=== PATIENT | male | born 1930 | race Two or more races ===

== ENCOUNTER 2016-08-25 15:45 | Emergency (ER) | payer MEDICARE, BC ==
--- NOTE | 2016-08-25 16:09 | ER Document Report ---
ED Medical Screen (RME) - General Stated Complaint: BACK PAIN Time seen by provider: 16:03 Mode of Arrival: Ambulatory Information source: Patient Notes: 86-year-old Ukrainian-speaking male that walks with a cane is complaining of low back pain for 3 days ago worse today while he was sitting in a car looking in a house. He points to his right sacral iliac area which hurts more than the left. He has a history of diabetes, dementia, TIAs, hypertension, renal insufficiency, strokes. Son has been translating for him in triage. TRAVEL OUTSIDE OF THE [place] IN LAST 30 DAYS: No Past Medical History - Past Medical History Cardiac Medical History: Reports: Hx Hypertension Endocrine Medical History: Reports: Hx Diabetes Mellitus Type 2 - Immunizations Hx Diphtheria, Pertussis, Tetanus Vaccination: Yes Physical Exam - Vital signs Vitals: Temp Pulse Resp BP Pulse Ox 98.0 F 56 L 20 119/55 L 96 08/25/16 15:54 08/25/16 15:54 08/25/16 15:54 08/25/16 15:54 08/25/16 15:54 Course - Vital Signs Vital signs: Temp Pulse Resp BP Pulse Ox 98.0 F 56 L 20 119/55 L 96 08/25/16 15:54 08/25/16 15:54 08/25/16 15:54 08/25/16 15:54 08/25/16 15:54
[2016-08-25 16:47] LABS: APPEARANCE,URINE SLIGHTLY-CLOUDY; BILIRUBIN,URINE NEGATIVE (NEGATIVE); GLUCOSE, URINE NEGATIVE (NEGATIVE); KETONES,URINE NEGATIVE (NEGATIVE); LEUKOCYTE ESTERASE,URINE NEGATIVE (NEGATIVE); NITRITE,URINE NEGATIVE (NEGATIVE); PROTEIN,URINE NEGATIVE (NEGATIVE); URINE SPECIFIC GRAVITY 1.015; UROBILINOGEN,URINE NEGATIVE mg/dL (<2.0)
[2016-08-25 16:51] LABS: ABSOLUTE EOSINOPHILS # (AUTO) 0.2 10^3/uL (0.0-0.6); ABSOLUTE LYMPHOCYTES (AUTO) 1.2 10^3/uL (0.5-4.7); ABSOLUTE MONOCYTES (AUTO) 0.8 10^3/uL (0.1-1.4); ABSOLUTE NEUT (AUTO) 5.2 10^3/uL (1.7-8.2); BASOPHILS % (AUTO) 0.5 % (0-2); EOSINOPHILS % (AUTO) 2.3 % (0-6); HEMATOCRIT 40.8 % (37.9-51.0); HEMOGLOBIN 13.9 g/dL (13.5-17.0); HGB HCT DIFFERENCE 0.9; LYMPHOCYTES % (AUTO) 16.8 % (13-45); MEAN CORPUSCULAR HEMOGLOBIN 30.1 pg (27.0-33.4); MEAN CORPUSCULAR HGB CONC 34.1 g/dL (32.0-36.0); MEAN CORPUSCULAR VOLUME 88 fl (80-97); MONOCYTES % (AUTO) 10.6 % (3-13); RED BLOOD COUNT 4.62 10^6/uL (4.35-5.55); RED CELL DISTRIBUTION WIDTH 14.1 % (11.5-14.0); SEGMENTED NEUTROPHILS % (AUTO) 69.8 % (42-78); WHITE BLOOD COUNT 7.4 10^3/uL (4.0-10.5)
[2016-08-25 17:04] LABS: ALANINE AMINOTRANSFERASE 37 U/L (21-72); ALKALINE PHOSPHATASE 134 U/L (38-126); ANION GAP 10 (5-19); ASPARTATE AMINO TRANSFERASE 36 U/L (17-59); BILIRUBIN,TOTAL 0.7 mg/dL (0.2-1.3); BLOOD UREA NITROGEN 33 mg/dL (7-20); CALCIUM 9.2 mg/dL (8.4-10.2); CARBON DIOXIDE 25 mmol/L (22-30); CHLORIDE 101 mmol/L (98-107); CREATININE RESULT 1.28 mg/dL (0.52-1.25); GLUCOSE 155 mg/dL (75-110); POTASSIUM 4.9 mmol/L (3.6-5.0); SODIUM 135.5 mmol/L (137-145); TOTAL PROTEIN 6.4 g/dL (6.3-8.2)
[2016-08-25] MEDS ORDERED: LIDOCAINE 5% (700 MG) TRANSDERMAL ADH..PATCH TP ONE (19:31)
--- NOTE | 2016-08-25 19:33 | ER Document Report ---
ED General - General Chief Complaint: Back Pain Stated Complaint: BACK PAIN Mode of Arrival: Ambulatory Notes: Patient is an 86-year-old male with past medical history of lumbar laminectomy who presents with bilateral low back pain that started several hours prior to arrival. It is a dull, aching, severe pain. Nothing improves or worsens the pain initially. He has a history of similar symptoms in the past and if it was worse today due to him trying to get out of a car. At time of my assessment, patient denies any pain and states that it completely resolved after lying flat for a period of time. He denies any urinary retention or incontinence. No weakness or numbness. He continues to be able to ambulate without difficulty. No direct trauma to the area. He has not seen his primary doctor regarding today's concerns. TRAVEL OUTSIDE OF THE [place] IN LAST 30 DAYS: No - Related Data Allergies/Adverse Reactions: alprazolam [From Xanax] Allergy (Verified 08/25/16 16:06) brinzolamide [From Azopt] Allergy (Verified 08/25/16 16:06) levofloxacin [From Levaquin] Allergy (Verified 08/25/16 16:06) Sulfa (Sulfonamide Antibiotics) Allergy (Verified 08/25/16 16:06) grapes Allergy (Uncoded 08/25/16 16:06) peaches Allergy (Uncoded 08/25/16 16:06) Past Medical History - General Information source: Patient - Social History Smoking Status: Never Smoker Chew tobacco use (# tins/day): No Frequency of alcohol use: None Drug Abuse: None Lives with: Spouse/Significant other Family History: Reviewed & Not Pertinent Patient has suicidal ideation: No Patient has homicidal ideation: No - Past Medical History Cardiac Medical History: Reports: Hx Hypertension Endocrine Medical History: Reports: Hx Diabetes Mellitus Type 2 Renal/ Medical History: Denies: Hx Peritoneal Dialysis - Immunizations Hx Diphtheria, Pertussis, Tetanus Vaccination: Yes Review of Systems - Review of Systems Notes: Constitutional: Negative for fever. HENT: Negative for sore throat. Eyes: Negative for visual changes. Cardiovascular: Negative for chest pain. Respiratory: Negative for shortness of breath. Gastrointestinal: Negative for abdominal pain, vomiting or diarrhea. Genitourinary: Negative for dysuria. Musculoskeletal: Positive for back pain. Skin: Negative for rash. Neurological: Negative for headaches, weakness or numbness. 10 point ROS negative except as marked above and in HPI. Physical Exam - Vital signs Vitals: Temp Pulse Resp BP Pulse Ox 98.0 F 56 L 20 119/55 L 96 08/25/16 15:54 08/25/16 15:54 08/25/16 15:54 08/25/16 15:54 08/25/16 15:54 Interpretation: Normal Notes: PHYSICAL EXAMINATION: GENERAL: Well-appearing, well-nourished and in no acute distress. HEAD: Atraumatic, normocephalic. EYES: Pupils equal round and reactive to light, extraocular movements intact, sclera anicteric, conjunctiva are normal. ENT: nares patent, oropharynx clear without exudates. Moist mucous membranes. NECK: Normal range of motion, supple without lymphadenopathy LUNGS: Breath sounds clear to auscultation bilaterally and equal. No wheezes rales or rhonchi. HEART: Regular rate and rhythm without murmurs ABDOMEN: Soft, nontender, normoactive bowel sounds. No guarding, no rebound. No masses appreciated. EXTREMITIES: Normal range of motion, no pitting or edema. No cyanosis. Back: No midline spinal tenderness, step-offs or deformities. NEUROLOGICAL: 5 out of 5 strength both distally and proximally bilateral lower extremities. 2+ patellar reflexes bilaterally. No clonus. Sensation grossly intact in the bilateral lower extremities. Patient is able to ambulate without difficulty. PSYCH: Normal mood, normal affect. SKIN: Warm, Dry, normal turgor, no rashes or lesions noted. Course - Re-evaluation Re-evalutation: 08/25/16 19:31 Presentation of a well appearing patient complaining of acute on chronic back pain. No rapid progression of symptoms, systemic symptoms including fevers, chills, weight loss, history of recent bacterial infection, bilateral symptoms, numbness, weakness, difficulty walking, urinary retention or bowel incontinence , personal history of cancer, immunosuppression, diabetes, known AAA, or history of IV drug use. Exam is without point tenderness over vertebral bodies , pulsatile abdominal mass, and patient has symmetric and intact lower extremity strength, sensation, and reflexes without clonus. 2+ symmetric medial malleolar and dorsalis pedis pulses Based on history and physical, I have a very low suspicion of a concerning etiology of pain including epidural compression syndrome, spinal infection, transverse myelitis, malignancy, abdominal aortic aneurysm, renal colic, acute lower extremity claudication, neurogenic claudication, ankylosing spondylitis, or other intra-abdominal process. L-spine films obtained in triage show chronic degenerative changes but no acute findings.At this time will discharge with return precautions and follow-up recommendations. Verbal discharge instructions given a the bedside and opportunity for questions given. Medication warnings reviewed. Patient is in agreement with this plan and has verbalized understanding of return precautions and the need for primary care follow-up in the next 24-72 hours. - Vital Signs Vital signs: Temp Pulse Resp BP Pulse Ox 98.1 F 68 18 118/52 L 98 08/25/16 19:43 08/25/16 19:43 08/25/16 19:43 08/25/16 19:43 08/25/16 19:43 - Laboratory Result Diagrams: 08/25/16 16:18 08/25/16 16:18 Laboratory results interpreted by me: 08/25/16 08/25/16 08/25/16 16:18 16:18 17:37 RDW 14.1 H Sodium 135.5 L BUN 33 H Creatinine 1.28 H Est GFR (Non-Af Amer) 53 L Glucose 155 H POC Glucose 120 H Alkaline Phosphatase 134 H - Diagnostic Test Radiology reviewed: Reports reviewed Discharge - Discharge Clinical Impression: Back pain Qualifiers: Back pain location: low back pain Chronicity: chronic Back pain laterality: right Sciatica presence: without sciatica Qualified Code(s): M54.5 - Low back pain Condition: Good Disposition: HOME, SELF-CARE Additional Instructions: You have been seen in the Emergency Department (ED) today for back pain. Your workup and exam have not shown any acute abnormalities and you are likely suffering from muscle strain or possible problems with your discs, but there is no treatment that will fix your symptoms at this time. You can take Tylenol 1000 mg every 6 hours as needed for pain. You should also purchase a local lidocaine cream such as "aspercreme with lidocaine" and use per bottle instructions to the affected area. Apply heat to the area as often as you are able. Continue to keep active and avoid prolonged periods of bed rest. Please follow up with your doctor as soon as possible regarding today's ED visit and your back pain. Return to the ED for worsening back pain, fever, weakness or numbness of either leg, or if you develop either (1) an inability to urinate or have bowel movements, or (2) loss of your ability to control your bathroom functions (if you start having "accidents"), or if you develop other new symptoms that concern you.concern you. Referrals: VIRI HERNANDEZ MD [Primary Care Provider] - Follow up as needed GABI RAE MD [ACTIVE STAFF] - Follow up as needed
[2016-08-25 19:46] VITALS: BP 118/52
== END 2016-08-25 19:46 | disposition home or self-care (01) ==
LOC: ER 15:45
DX: M47.9 Spondylosis, unspecified (principal); M54.5 Low back pain; G89.29 Other chronic pain; I10 Essential (primary) hypertension; E11.9 Type 2 diabetes mellitus without complications; Z79.899 Other long term (current) drug therapy; Z88.8 Allergy status to other drugs, medicaments and biological substances; Z88.1 Allergy status to other antibiotic agents; Z88.2 Allergy status to sulfonamides; Z91.018 Allergy to other foods
CPT/HCPCS: 36415; 72110; 80053; 81001; 82962; 85025; 99283

== ENCOUNTER 2016-10-07 17:32 | Observation (INO) | payer MEDICARE, BC ==
--- NOTE | 2016-10-07 18:00 | ER Document Report ---
ED Dizziness/Weakness - General Mode of Arrival: Medic Information source: Patient, Relative - son, Emergency Med Personnel TRAVEL OUTSIDE OF THE [place] IN LAST 30 DAYS: No - HPI Patient complains to provider of: Weakness Associated symptoms: Other - See above <ARELI HALL - Last Filed: 10/07/16 19:30> <CHASIDYERINNCHRIS - Last Filed: 10/07/16 21:15> - General Chief Complaint: General Weakness Stated Complaint: WEAKNESS Notes: Patient is an 86 year old male, with a past medical history including diabetes and CVAs, who presents to the emergency department via EMS for weakness. Patient is Malay speaking, son at bedside to translate. Per son patient had gone to the bathroom multiple times this morning and his mother noticed that one of the bowel movements was soft. Son reported patient appeared drooped, weak , was only minimally responsive, and reported he felt sleepy, son states patient's blood pressure was 68/48 and his blood sugar was at 230. When EMS arrived they recorded patient's blood pressure as 85/44 with a pulse of 43, en route patient was given a bolus of saline of unknown amount and his blood pressure improved to 130/63. Per son patient is on Plavix for past CVAs and TIAs. Son reports patient has history of partial bowel obstructions, but none in the last 2 years. Patient had a formed bowel movement on arrival to exam room. PCP: Dr. Carmona (ARELI HALL) - Related Data Allergies/Adverse Reactions: alprazolam [From Xanax] Allergy (Verified 08/25/16 16:06) brinzolamide [From Azopt] Allergy (Verified 08/25/16 16:06) levofloxacin [From Levaquin] Allergy (Verified 08/25/16 16:06) Sulfa (Sulfonamide Antibiotics) Allergy (Verified 08/25/16 16:06) grapes Allergy (Uncoded 08/25/16 16:06) peaches Allergy (Uncoded 08/25/16 16:06) Past Medical History - General Information source: Patient, Relative - Social History Smoking Status: Unknown if Ever Smoked Family History: Reviewed & Not Pertinent - Past Medical History Cardiac Medical History: Reports: Hx Hypertension EENT Medical History: Reports: Eyes - glaucoma Neurological Medical History: Reports: Hx Cerebrovascular Accident, Other - Hx TIAs Endocrine Medical History: Reports: Hx Diabetes Mellitus Type 2 - oral GI Medical History: Reports: Hx Gastroesophageal Reflux Disease, Other - Hx partial bowel obstructions, last 2 years ago Psychiatric Medical History: Reports: Hx Dementia - Immunizations Hx Diphtheria, Pertussis, Tetanus Vaccination: Yes <ARELI HALL - Last Filed: 10/07/16 19:30> Review of Systems - Review of Systems Constitutional: See HPI, Weakness EENT: No symptoms reported Cardiovascular: No symptoms reported Respiratory: No symptoms reported Gastrointestinal: See HPI, Diarrhea Genitourinary: No symptoms reported Male Genitourinary: No symptoms reported Musculoskeletal: No symptoms reported Skin: No symptoms reported Hematologic/Lymphatic: No symptoms reported Neurological/Psychological: No symptoms reported -: Yes All other systems reviewed and negative <ARELI HALL - Last Filed: 10/07/16 19:30> Physical Exam - Vital signs Interpretation: Normal - General General appearance: Appears well, Alert - HEENT Head: Normocephalic, Atraumatic Mucous membranes: Dry - Respiratory Respiratory status: No respiratory distress Chest status: Nontender Breath sounds: Normal Chest palpation: Normal - Cardiovascular Rhythm: Regular Heart sounds: Normal auscultation Murmur: No Pulses: Normal: Radial - Abdominal Inspection: Normal Distension: No distension Bowel sounds: Normal Tenderness: Nontender Organomegaly: No organomegaly - Extremities General upper extremity: Normal inspection General lower extremity: Normal inspection. No: Edema - Neurological Neuro grossly intact: Yes Cognition: Normal Orientation: AAOx4 Speech: Normal - Psychological Associated symptoms: Normal affect, Normal mood - Skin Skin Temperature: Warm Skin Moisture: Dry Skin Color: Normal <ARELI HALL - Last Filed: 10/07/16 19:30> <CHRIS UMAÑA - Last Filed: 10/07/16 21:15> - Vital signs Vitals: Temp Pulse Resp BP Pulse Ox 97.2 F 54 L 20 124/51 L 100 10/07/16 17:54 10/07/16 17:54 10/07/16 17:54 10/07/16 17:54 10/07/16 17:54 - Abdominal Notes: Bowel movement upon arrival (ARELI HALL) Course - Laboratory Result Diagrams: 10/07/16 18:11 10/07/16 18:11 <ARELI HALL - Last Filed: 10/07/16 19:30> - Laboratory Result Diagrams: 10/07/16 18:11 10/07/16 18:11 - Diagnostic Test Radiology reviewed: Image reviewed, Reports reviewed - Chest x-ray does not show an acute process. - EKG Interpretation by Me EKG shows normal: Sinus rhythm, [place], Intervals, QRS Complexes, ST-T Waves Rate: Normal - 61 Rhythm: NSR - Consults Dr. Ellsworth Time consulted: 21:15 Consulted provider: will see as inpatient <CHRIS UMAÑA - Last Filed: 10/07/16 21:15> - Vital Signs Vital signs: Temp Pulse Resp BP Pulse Ox 97.2 F 54 L 10 L 129/53 H 99 10/07/16 17:54 10/07/16 17:54 10/07/16 18:32 10/07/16 18:32 10/07/16 18:32 - Laboratory Laboratory results interpreted by me: 10/07/16 10/07/16 18:11 20:53 Sodium 133.3 L Potassium 6.0 H* BUN 49 H Creatinine 1.82 H Est GFR ( Amer) 43 L Est GFR (Non-Af Amer) 36 L Glucose 195 H Total Protein 6.2 L Urine Glucose (UA) 50 H Critical Care Note - Critical Care Note Total time excluding time spent on procedures (mins): 35 <CHRIS UMAÑA - Last Filed: 10/07/16 21:15> Discharge <ARELI HALL - Last Filed: 10/07/16 19:30> - Discharge Admitting Provider: Mathew - Dr. Ellsworth covering. Unit Admitted: Telemetry <CHRIS UMAÑA - Last Filed: 10/07/16 21:15> - Discharge Clinical Impression: Clostridium difficile diarrhea, Hyperkalemia, Dehydration, Bradycardia Hypotension Qualifiers: Hypotension type: other hypotension type Qualified Code(s): I95.89 - Other hypotension Condition: Good Disposition: ADMITTED INPATIENT Referrals: VIRI CARMONA MD [Primary Care Provider] - Follow up as needed Scribe Attestation: 10/07/16 21:15 I personally performed the services described in the documentation, reviewed and edited the documentation which was dictated to the scribe in my presence, and it accurately records my words and actions. (CHASIDY,CHRIS) Scribe Documentation - Scribe Written by Linette:: linette Childers, 10/07/16, 1835 acting as scribe for :: Chasidy <ARELI HALL - Last Filed: 10/07/16 19:30>
[2016-10-07] MEDS ORDERED: NORMAL SALINE 1000 ML 1,000 ML IV ONE (18:11)
[2016-10-07 18:34] LABS: ABSOLUTE EOSINOPHILS # (AUTO) 0.1 10^3/uL (0.0-0.6); ABSOLUTE MONOCYTES (AUTO) 0.7 10^3/uL (0.1-1.4); ABSOLUTE NEUT (AUTO) 5.5 10^3/uL (1.7-8.2); BASOPHILS % (AUTO) 0.5 % (0-2); EOSINOPHILS % (AUTO) 1.6 % (0-6); HEMATOCRIT 39.9 % (37.9-51.0); HEMOGLOBIN 13.7 g/dL (13.5-17.0); HGB HCT DIFFERENCE 1.2; LYMPHOCYTES % (AUTO) 13.1 % (13-45); MEAN CORPUSCULAR HEMOGLOBIN 30.5 pg (27.0-33.4); MEAN CORPUSCULAR HGB CONC 34.4 g/dL (32.0-36.0); MEAN CORPUSCULAR VOLUME 89 fl (80-97); MONOCYTES % (AUTO) 9.1 % (3-13); RED CELL DISTRIBUTION WIDTH 13.9 % (11.5-14.0); SEGMENTED NEUTROPHILS % (AUTO) 75.7 % (42-78); WHITE BLOOD COUNT 7.3 10^3/uL (4.0-10.5)
[2016-10-07 18:40] LABS: VENOUS BLOOD BASE EXCESS -2.2 mmol/L; VENOUS BLOOD HCO3 24.2 mmol/L (20-32); VENOUS BLOOD PCO2 47.8 mmHg (35-63); VENOUS BLOOD PH 7.32 (7.30-7.42)
[2016-10-07 18:57] LABS: PROTHROMBIN TIME 13.5 SEC (11.4-15.4)
[2016-10-07 19:00] LABS: ALANINE AMINOTRANSFERASE 33 U/L (21-72); ALBUMIN 3.7 g/dL (3.5-5.0); ALKALINE PHOSPHATASE 103 U/L (38-126); ANION GAP 9 (5-19); ASPARTATE AMINO TRANSFERASE 40 U/L (17-59); BILIRUBIN,TOTAL 0.8 mg/dL (0.2-1.3); BLOOD UREA NITROGEN 49 mg/dL (7-20); CARBON DIOXIDE 24 mmol/L (22-30); CHLORIDE 100 mmol/L (98-107); CREATININE RESULT 1.82 mg/dL (0.52-1.25); GLUCOSE 195 mg/dL (75-110); SODIUM 133.3 mmol/L (137-145); TOTAL PROTEIN 6.2 g/dL (6.3-8.2)
[2016-10-07] MEDS ORDERED: CALCIUM GLUCONATE 1000 MG/10 ML INJ IV ONE (19:06)
[2016-10-07] MEDS ORDERED: SODIUM BICARBONATE 8.4% INJ 50 MEQ/50 ML DISP.SYRIN IV ONE (19:06)
[2016-10-07] MEDS ORDERED: METRONIDAZOLE 500 MG TABLET PO ONE (19:55)
--- NOTE | 2016-10-07 20:07 | EKG REPORT ---
SEVERITY:- NORMAL ECG - SINUS RHYTHM : Confirmed by: Nikos Monahan 07-Oct-2016 20:06:21
[2016-10-07 21:09] LABS: APPEARANCE,URINE CLEAR; BILIRUBIN,URINE NEGATIVE (NEGATIVE); GLUCOSE, URINE 50 mg/dL (NEGATIVE); KETONES,URINE NEGATIVE (NEGATIVE); LEUKOCYTE ESTERASE,URINE NEGATIVE (NEGATIVE); NITRITE,URINE NEGATIVE (NEGATIVE); PROTEIN,URINE NEGATIVE (NEGATIVE); URINE SPECIFIC GRAVITY 1.008; UROBILINOGEN,URINE NEGATIVE mg/dL (<2.0)
[2016-10-08] MEDS ORDERED: NORMAL SALINE 1000 ML 1,000 ML IV PRN ×2 (02:13→17:45)
[2016-10-08] MEDS ORDERED: DEXTROSE 50%-WATER SYRINGE 12.5 GM/25 ML DOSE IV PRN (02:16)
[2016-10-08] MEDS ORDERED: DEXTROSE 40% GEL 15 GM TUBE X 2 PO PRN (02:16)
[2016-10-08] MEDS ORDERED: DEXTROSE 50%-WATER SYRINGE 25 GM/50 ML DOSE IV PRN (02:16)
[2016-10-08] MEDS ORDERED: INSULIN REG, HUMAN 100 UNIT/ML 3 ML VIAL (PYX) SUBCUT PRN (02:16)
[2016-10-08] MEDS ORDERED: DEXTROSE 40% GEL 15 GM TUBE PO PRN (02:16)
[2016-10-08] MEDS ORDERED: GLUCAGON,HUMAN RECOMB 1 MG INJ IM PRN (02:16)
[2016-10-08] MEDS: METRONIDAZOLE 500 MG TABLET PO SCH ×2 (05:48→14:16)
[2016-10-08 07:59] LABS: ABSOLUTE EOSINOPHILS # (AUTO) 0.2 10^3/uL (0.0-0.6); ABSOLUTE LYMPHOCYTES (AUTO) 1.8 10^3/uL (0.5-4.7); ABSOLUTE NEUT (AUTO) 6.3 10^3/uL (1.7-8.2); BASOPHILS % (AUTO) 0.5 % (0-2); EOSINOPHILS % (AUTO) 1.7 % (0-6); HEMATOCRIT 39.2 % (37.9-51.0); HEMOGLOBIN 13.2 g/dL (13.5-17.0); HGB HCT DIFFERENCE 0.4; MEAN CORPUSCULAR HEMOGLOBIN 29.9 pg (27.0-33.4); MEAN CORPUSCULAR HGB CONC 33.8 g/dL (32.0-36.0); MEAN CORPUSCULAR VOLUME 89 fl (80-97); MONOCYTES % (AUTO) 10.9 % (3-13); RED BLOOD COUNT 4.43 10^6/uL (4.35-5.55); RED CELL DISTRIBUTION WIDTH 14.1 % (11.5-14.0); SEGMENTED NEUTROPHILS % (AUTO) 67.9 % (42-78); WHITE BLOOD COUNT 9.2 10^3/uL (4.0-10.5)
[2016-10-08] MEDS ORDERED: DOXAZOSIN MESYLATE 1 MG TABLET PO PRN (10:11)
[2016-10-08 10:13] LABS: ANION GAP 8 (5-19); CALCIUM 9.1 mg/dL (8.4-10.2); CARBON DIOXIDE 26 mmol/L (22-30); CHLORIDE 105 mmol/L (98-107); CREATININE RESULT 0.97 mg/dL (0.52-1.25); GLUCOSE 150 mg/dL (75-110); SODIUM 138.9 mmol/L (137-145)
[2016-10-08 10:31] LABS: BLOOD UREA NITROGEN 28 mg/dL (7-20); POTASSIUM 3.9 mmol/L (3.6-5.0)
--- NOTE | 2016-10-08 12:59 | PDOC H&P ---
History of Present Illness Admission Date/PCP: 10/08/16 00:35 VIRI HERNANDEZ MD Patient complains of: low bp/ History of Present Illness: MAGUI CABALLERO is a 86 year old male pt brought by em[facility] [place] son noticed bp was lower end and in er all blood presure was stable but pt pot was 6 and pt c diff was positive son denied any h/o loose stool pt denied any abd pain no chest pain no sob no fever As per review from the ER physicians not the patient was in the multiple times in the bathroom I believe it could be a possible underlying loose stool and it could be underlying from the C. difficile but the patient's son insist patient does not have any other symptoms Past Medical History Cardiac Medical History: Reports: Hypertension EENT Medical History: Reports: Eyes - glaucoma Neurological Medical History: Reports: Other - Hx TIAs Endocrine Medical History: Reports: Diabetes Mellitus Type 2 - oral Renal/ Medical History: Reports: Chronic Kidney Disease GI Medical History: Reports: Gastroesophageal Reflux Disease, Other - Hx partial bowel obstructions, last 2 years ago Psychiatric Medical History: Reports: Dementia Social History Smoking Status: Never Smoker Frequency of Alcohol Use: None Hx Recreational Drug Use: No Hx Prescription Drug Abuse: No Family History Family History: Reviewed & Not Pertinent Parental Family History Reviewed: Yes Children Family History Reviewed: Yes Sibling(s) Family History Reviewed.: Yes Medication/Allergy Home Medications: Amlodipine Besylate [Norvasc 10 mg Tablet] 5 mg PO BIDLS 10/08/16 Amlodipine Besylate [Norvasc 5 mg Tablet] 5 mg PO ASDIR PRN 10/08/16 Brimonidine Tartrate [Alphagan 0.2% Oph Soln 5 ml] 1 drop OU BID 10/08/16 Clopidogrel Bisulfate [Plavix 75 mg Tablet] 75 mg PO QHS 10/08/16 Doxazosin Mesylate [Cardura 1 Mg Tablet] 1 mg PO HSP PRN 10/08/16 Famotidine 20 mg PO BIDBS 10/08/16 Glipizide [Glipizide Xl] 2.5 mg PO BIDBS 10/08/16 Latanoprost [Xalatan 0.005% Oph Soln 2.5 ml] 1 drop OU QHS 10/08/16 Losartan Potassium [Cozaar 50 mg Tablet] 25 mg PO BIDLS 10/08/16 Timolol Maleate [Timoptic 0.5% Oph Soln 5 ml] 1 drop OU BID 10/08/16 Allergies/Adverse Reactions: alprazolam [From Xanax] Allergy (Verified 08/25/16 16:06) brinzolamide [From Azopt] Allergy (Verified 08/25/16 16:06) levofloxacin [From Levaquin] Allergy (Verified 08/25/16 16:06) Sulfa (Sulfonamide Antibiotics) Allergy (Verified 08/25/16 16:06) grapes Allergy (Uncoded 08/25/16 16:06) peaches Allergy (Uncoded 08/25/16 16:06) Review of Systems Constitutional: ABSENT: chills, fever(s), headache(s), weight gain, weight loss Eyes: ABSENT: visual disturbances Ears: ABSENT: hearing changes Cardiovascular: ABSENT: chest pain, dyspnea on exertion, edema, orthropnea, palpitations Respiratory: ABSENT: cough, hemoptysis Gastrointestinal: ABSENT: abdominal pain, constipation, diarrhea, hematemesis, hematochezia, nausea, vomiting Genitourinary: ABSENT: dysuria, hematuria Musculoskeletal: ABSENT: joint swelling Integumentary: ABSENT: rash, wounds Neurological: ABSENT: abnormal gait, abnormal speech, confusion, dizziness, focal weakness, syncope Psychiatric: ABSENT: anxiety, depression, homidical ideation, suicidal ideation Endocrine: ABSENT: cold intolerance, heat intolerance, menstrual abnormalities, polydipsia, polyuria Hematologic/Lymphatic: ABSENT: easy bleeding, easy bruising, lymphadenopathy Physical Exam Vital Signs: Temp Pulse Resp BP Pulse Ox 97.9 F 59 L 16 142/50 H 100 10/08/16 09:02 10/08/16 09:02 10/08/16 09:02 10/08/16 09:02 10/08/16 09:02 Intake & Output 10/07/16 10/08/16 10/09/16 06:59 06:59 06:59 Output Total 1800 Balance -1800 Weight 54.431 kg 55.6 kg General appearance: PRESENT: no acute distress, well-developed, well-nourished Head exam: PRESENT: atraumatic, normocephalic Eye exam: PRESENT: conjunctiva pink, EOMI, PERRLA. ABSENT: scleral icterus Ear exam: PRESENT: normal external ear exam Mouth exam: PRESENT: moist, tongue midline Neck exam: PRESENT: full ROM. ABSENT: carotid bruit, JVD, lymphadenopathy, thyromegaly Cardiovascular exam: PRESENT: RRR. ABSENT: diastolic murmur, rubs, systolic murmur Pulses: PRESENT: normal dorsalis pedis pul, +2 pedal pulses bilateral Vascular exam: PRESENT: normal capillary refill GI/Abdominal exam: PRESENT: normal bowel sounds, soft. ABSENT: distended, guarding, mass, organolmegaly, rebound, tenderness Rectal exam: PRESENT: deferred Neurological exam: PRESENT: alert, awake, oriented to person. ABSENT: motor sensory deficit Psychiatric exam: PRESENT: appropriate affect, normal mood. ABSENT: homicidal ideation, suicidal ideation Skin exam: PRESENT: dry, intact, warm. ABSENT: cyanosis, rash Results Laboratory Results: 10/08/16 07:51 10/08/16 10/08/16 06:30 07:51 WBC Cancelled 9.2 RBC Cancelled 4.43 Hgb Cancelled 13.2 L Hct Cancelled 39.2 MCV Cancelled 89 MCH Cancelled 29.9 MCHC Cancelled 33.8 RDW Cancelled 14.1 H Plt Count Cancelled 223 Seg Neutrophils % Cancelled 67.9 Lymphocytes % Cancelled 19.0 Monocytes % Cancelled 10.9 Eosinophils % Cancelled 1.7 Basophils % Cancelled 0.5 Absolute Neutrophils Cancelled 6.3 Absolute Lymphocytes Cancelled 1.8 Absolute Monocytes Cancelled 1.0 Absolute Eosinophils Cancelled 0.2 Absolute Basophils Cancelled 0.0 Impressions: Chest X-Ray 10/07/16 17:45 IMPRESSION: NO ACUTE RADIOGRAPHIC FINDING IN THE CHEST. Assessment & Plan - Diagnosis (1) Clostridium difficile diarrhea Is this a current diagnosis for this admission?: YesPlan: last antibitec in jun pt denied any sx d/w son start po metronidazole (2) Acute renal failure (ARF) Qualifiers: Acute renal failure type: unspecified Qualified Code(s): N17.9 - Acute kidney failure, unspecified Is this a current diagnosis for this admission?: YesPlan: iv fluid repat blood work hold cuong (3) Chronic kidney disease Qualifiers: Chronic kidney disease stage: stage 2 (mild) Qualified Code(s): N18.2 - Chronic kidney disease, stage 2 (mild) Is this a current diagnosis for this admission?: YesPlan: iv fluid (4) Dehydration Is this a current diagnosis for this admission?: YesPlan: iv fluid (5) Hyperkalemia Is this a current diagnosis for this admission?: YesPlan: from ckd d/c lorsatan low k diet (6) Hypotension Qualifiers: Hypotension type: other hypotension type Qualified Code(s): I95.89 - Other hypotension Is this a current diagnosis for this admission?: YesPlan: un cler etilogy will r/o sepsis check urine culture son denied any s/o diarehia and denied any other sx (7) Type 2 diabetes mellitus Qualifiers: Diabetes mellitus complication status: with unspecified complications Is this a current diagnosis for this admission?: YesPlan: cont curr med and ss - Inpatient Certification Medical Necessity: Need Close Monitoring Due to Risk of Patient Decompensation, Need For IV Fluids Post Hospital Care: D/C [employer] Documentation - Plan Summary Plan Summary: Very extensive discussions with the son and emergency departments about the patient's current condition and some concern with the renal failure and positive C. difficile but the patient's son insist that patients does not have any symptoms right now and he willing to take at home's where he felt that his father is much better over the rather than staying in the hospital. Discussed with the patient's son about the kidney functions and the potassiums and see if the looks all normal the next 24 hours and the patient does not have any symptoms may be the possible discharge Jose Luis currently hold the losartan. And wait for all cultures
[2016-10-08 15:08] LABS: HEMOGLOBIN 13.5 g/dL (13.5-17.0); HGB HCT DIFFERENCE 0.5; MEAN CORPUSCULAR HEMOGLOBIN 30.2 pg (27.0-33.4); MEAN CORPUSCULAR HGB CONC 33.9 g/dL (32.0-36.0); MEAN CORPUSCULAR VOLUME 89 fl (80-97); RED BLOOD COUNT 4.49 10^6/uL (4.35-5.55); RED CELL DISTRIBUTION WIDTH 13.9 % (11.5-14.0); WHITE BLOOD COUNT 12.6 10^3/uL (4.0-10.5)
[2016-10-08 15:18] LABS: ANION GAP 9 (5-19); BLOOD UREA NITROGEN 30 mg/dL (7-20); CALCIUM 9.3 mg/dL (8.4-10.2); CARBON DIOXIDE 22 mmol/L (22-30); CHLORIDE 104 mmol/L (98-107); CREATININE RESULT 1.09 mg/dL (0.52-1.25); GLUCOSE 202 mg/dL (75-110); POTASSIUM 4.4 mmol/L (3.6-5.0); SODIUM 134.8 mmol/L (137-145)
[2016-10-08] MEDS ORDERED: GLIPIZIDE XL 2.5 MG TAB.ER.24 PO SCH (17:00)
[2016-10-08] MEDS ORDERED: FAMOTIDINE 20 MG TABLET PO SCH (17:00)
[2016-10-08] MEDS ORDERED: BRIMONIDINE TARTRATE 0.2% OPH SOLN 5 ML OU SCH (18:00)
[2016-10-08] MEDS ORDERED: TIMOLOL MALEATE 0.5% OPH SOLN 5 ML OU SCH (18:00)
[2016-10-08 18:46] VITALS: BP 142/50
[2016-10-08] MEDS ORDERED: LATANOPROST 0.005% OPH SOLN 2.5 ML OU SCH (22:00)
[2016-10-08] MEDS ORDERED: AMLODIPINE BESYLATE 5 MG TABLET PO SCH (22:00)
[2016-10-08] MEDS ORDERED: CLOPIDOGREL BISULFATE 75 MG TABLET PO SCH (22:00)
== END 2016-10-08 19:15 | disposition left against medical advice (07) ==
LOC: ER 17:32 → EH 21:28 → UNDOADMOB 21:28 → INTOOBSV 21:28 → 4S 10-08 00:35 → EH 10-08 08:36 → 4S 10-08 08:36
PROVIDERS: ADMIT Family Medicine; ATTEND Family Medicine
DX: A04.7 Enterocolitis due to Clostridium difficile (principal); I12.9 Hypertensive chronic kidney disease with stage 1 through stage 4 chronic kidney disease, or unspecified chronic kidney disease; N17.9 Acute kidney failure, unspecified; N18.2 Chronic kidney disease, stage 2 (mild); E11.22 Type 2 diabetes mellitus with diabetic chronic kidney disease; K21.9 Gastro-esophageal reflux disease without esophagitis; F03.90 Unspecified dementia, unspecified severity, without behavioral disturbance, psychotic disturbance, mood disturbance, and anxiety; E87.5 Hyperkalemia; E86.0 Dehydration; I95.9 Hypotension, unspecified; Z86.73 Personal history of transient ischemic attack (TIA), and cerebral infarction without residual deficits
CPT/HCPCS: 93005; 99291; 96361; 96374; 96375; 36415 ×2; 87040; 87045; 87086; 89055; 87205; 82962 ×2; 85025 ×2; 85027; 85610; 82272; 80048; 80053; 81001; 87493 ×2; 82803; 83605; 71010; 93010; G0378 ×2; J0610; A9270 ×3; J3490 ×2; J7030 ×2

== ENCOUNTER 2017-01-10 03:55 | Emergency (ER) | payer MEDICARE, OTHER ==
--- NOTE | 2017-01-10 04:48 | ER Document Report ---
ED Fall - General Chief Complaint: Fall Injury Stated Complaint: TROUBLE BREATHING Time Seen by Provider: 01/10/17 04:27 Notes: Patient is an 86-year-old male who comes emergency department for chief complaint of fall and pain to the left upper arm. Patient comes by EMS. Patient has family members at bedside including and son. Patient is [place]ian-speaking but they requested to interpret. They state that they were unaware that patient had gotten up, they did not hear him fall, they heard him complaining and when they turned on the lights he was sitting on the floor holding his left arm. They did not hear a thud. Patient denies hitting his head, he denies difficulty breathing, he denies chest pain, he denies abdominal pain, he denies back pain. He is on Plavix. He states that the only place that he hurts is in his left upper arm. He also denies hip pain or lower extremity pain. He fell onto carpet. Family states they just want him checked out. They state he has stopped complaining of pain, patient and family members refused any pain medication. TRAVEL OUTSIDE OF THE [place] IN LAST 30 DAYS: No - Related data Allergies/Adverse Reactions: alprazolam [From Xanax] Allergy (Verified 01/10/17 04:13) brinzolamide [From Azopt] Allergy (Verified 01/10/17 04:13) levofloxacin [From Levaquin] Allergy (Verified 01/10/17 04:13) Sulfa (Sulfonamide Antibiotics) Allergy (Verified 01/10/17 04:13) grapes Allergy (Uncoded 01/10/17 04:13) peaches Allergy (Uncoded 01/10/17 04:13) Home Medications: Current Home Medications Brimonidine Tartrate/Timolol [Combigan 0.2%-0.5% Eye Drops] 1 drop OU BID [History] Travoprost (Benzalkonium) [Travatan 0.004% Eye Drop] 1 drop OU QHS 01/10/17 [ History] Past Medical History - General Information source: Patient, Relative - son - Social History Smoking Status: Never Smoker Frequency of alcohol use: None Drug Abuse: None Lives with: Family Family History: Reviewed & Not Pertinent - Past Medical History Cardiac Medical History: Reports: Hx Hypertension Neurological Medical History: Reports: Hx Cerebrovascular Accident Endocrine Medical History: Reports: Hx Diabetes Mellitus Type 2 - oral Renal/ Medical History: Denies: Hx Peritoneal Dialysis GI Medical History: Reports: Hx Gastroesophageal Reflux Disease Psychiatric Medical History: Reports: Hx Dementia Past Surgical History: Reports: Hx Abdominal Surgery - SBO - Immunizations Hx Diphtheria, Pertussis, Tetanus Vaccination: Yes Review of Systems - Review of Systems Constitutional: No symptoms reported EENT: No symptoms reported Cardiovascular: No symptoms reported Respiratory: No symptoms reported Gastrointestinal: No symptoms reported Genitourinary: No symptoms reported Male Genitourinary: No symptoms reported Musculoskeletal: See HPI Skin: No symptoms reported Hematologic/Lymphatic: No symptoms reported Neurological/Psychological: No symptoms reported Physical Exam - Vital signs Vitals: Temp 97.9 F 01/10/17 04:00 Interpretation: Normal - General General appearance: Appears well, Alert In distress: None - Well-appearing, alert - HEENT Head: Normocephalic, Atraumatic Eyes: Normal Conjunctiva: Normal Extraocular movements intact: Yes Eyelashes: Normal Pupils: PERRL Sinus: Normal Nasal: Normal Mouth/Lips: Normal Mucous membranes: Normal Pharynx: Normal Neck: Normal - Respiratory Respiratory status: No respiratory distress Chest status: Nontender. No: Tender Breath sounds: Normal. No: Decreased air movement, Wheezing Chest palpation: Normal - Cardiovascular Rhythm: Regular. No: Tachycardia Heart sounds: Normal auscultation, S1 appreciated, S2 appreciated Murmur: No - Abdominal Inspection: Normal Distension: No distension Bowel sounds: Normal Tenderness: Nontender. No: Tender, Guarding Organomegaly: No organomegaly - Back Back: Normal, Nontender. No: Tender, Vertebra tenderness - Extremities General upper extremity: Other - Mild tenderness over the left humeral head and proximal humerus, otherwise completely unremarkable exam, normal distal neurovascular exam, normal strength, normal range of motion. slight pain with performing range of motion. General lower extremity: Normal inspection, Nontender, Normal color, Normal ROM , Normal temperature, Normal weight bearing. No: Lubna's sign - Neurological Neuro grossly intact: Yes Cognition: Normal Orientation: AAOx4 [place] Coma Scale Eye Opening: Spontaneous [place] Coma Scale Verbal: Oriented [place] Coma Scale Motor: Obeys Commands [place] Coma Scale Total: 15 Speech: Normal Motor strength normal: LUE, RUE, LLE, RLE Sensory: Normal - Psychological Associated symptoms: Normal affect, Normal mood - Skin Skin Temperature: Warm Skin Moisture: Dry Skin Color: Normal Course - Re-evaluation Re-evalutation: Patient is sitting pleasantly, smiling, no signs of distress. He grimaces somewhat if I palpate over the left humeral head, he denies any chest pain, abdominal pain, back pain, headache, neck pain. Patient had a completely normal physical examination otherwise. Vital signs unremarkable. X-ray of the shoulder and humerus are negative. Despite taking Plavix patient has no ecchymosis, swelling, or signs of injury. I re-examined the patient and still found no abnormalities other than mild tenderness over the humeral head. Patient still has full function of the arm. They are requesting to leave now. Declines sling for comfort, states they will take Tylenol for pain, ice the shoulder, and follow-up on Saturday with the primary care provider where they already have an appointment. Return if he develops any concerning symptoms such as headache, confusion, or any other concerning symptoms. - Vital Signs Vital signs: Temp Pulse Resp BP Pulse Ox 97.9 F 13 143/69 H 95 01/10/17 04:00 01/10/17 05:29 01/10/17 05:30 01/10/17 05:29 Discharge - Discharge Clinical Impression: Fall Qualifiers: Encounter type: initial encounter Qualified Code(s): W19.XXXA - Unspecified fall, initial encounter Left shoulder pain Qualifiers: Chronicity: acute Qualified Code(s): M25.512 - Pain in left shoulder Condition: Stable Disposition: HOME, SELF-CARE Additional Instructions: Examination shows some arthritis, but no fracture, dislocation, or other concerning finding is seen. Apply ice to the shoulder area (3 times a day for 10-15 minutes if possible), take tylenol for pain. Follow up with your planned appointment on Saturday. Return to the ED for any concerning symptoms. Referrals: VIRI HERNANDEZ MD [Primary Care Provider] - Follow up as needed
--- NOTE | 2017-01-10 05:06 | RADIOLOGY REPORT (SQ) ---
EXAM DESCRIPTION: SHOULDER LEFT 2 OR MORE VIEWS COMPLETED DATE/TIME: 01/10/2017 4:48 am REASON FOR STUDY: fall, pain COMPARISON: None. NUMBER OF VIEWS: Three views. TECHNIQUE: Internal rotation, external rotation, and Y view images acquired of the left shoulder. LIMITATIONS: None. FINDINGS: MINERALIZATION: Normal. BONES: No acute fracture or dislocation. No worrisome bone lesions. JOINTS: No dislocation. 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 VISUALIZED LUNGS AND RIBS: No pneumothorax. No rib fracture. SOFT TISSUES: No radiopaque foreign body. OTHER: No other significant finding. IMPRESSION: NO RADIOGRAPHIC EVIDENCE OF ACUTE INJURY. TECHNICAL DOCUMENTATION: JOB ID: [id number] [employer]- All Rights Reserved
[2017-01-10 05:34] VITALS: BP 143/69
== END 2017-01-10 05:35 | disposition home or self-care (01) ==
LOC: ER 03:55
DX: M25.512 Pain in left shoulder (principal); M79.622 Pain in left upper arm; W19.XXXA Unspecified fall, initial encounter; Y93.89 Activity, other specified; I10 Essential (primary) hypertension; E11.9 Type 2 diabetes mellitus without complications; Z79.02 Long term (current) use of antithrombotics/antiplatelets; Z88.8 Allergy status to other drugs, medicaments and biological substances; Z88.1 Allergy status to other antibiotic agents; Z88.2 Allergy status to sulfonamides; Z91.018 Allergy to other foods; Z86.73 Personal history of transient ischemic attack (TIA), and cerebral infarction without residual deficits
CPT/HCPCS: 99283

== ENCOUNTER 2017-01-16 01:53 | Emergency (ER) | payer MEDICARE, OTHER ==
[2017-01-16 03:28] LABS: ABSOLUTE BASOPHILS # (AUTO) 0.1 10^3/uL (0.0-0.2); ABSOLUTE EOSINOPHILS # (AUTO) 0.2 10^3/uL (0.0-0.6); ABSOLUTE LYMPHOCYTES (AUTO) 1.6 10^3/uL (0.5-4.7); ABSOLUTE MONOCYTES (AUTO) 0.9 10^3/uL (0.1-1.4); ABSOLUTE NEUT (AUTO) 5.8 10^3/uL (1.7-8.2); BASOPHILS % (AUTO) 0.7 % (0-2); HEMATOCRIT 42.1 % (37.9-51.0); HEMOGLOBIN 14.5 g/dL (13.5-17.0); HGB HCT DIFFERENCE 1.4; LYMPHOCYTES % (AUTO) 18.6 % (13-45); MEAN CORPUSCULAR HEMOGLOBIN 30.5 pg (27.0-33.4); MEAN CORPUSCULAR HGB CONC 34.5 g/dL (32.0-36.0); MEAN CORPUSCULAR VOLUME 88 fl (80-97); RED BLOOD COUNT 4.76 10^6/uL (4.35-5.55); SEGMENTED NEUTROPHILS % (AUTO) 67.7 % (42-78); WHITE BLOOD COUNT 8.6 10^3/uL (4.0-10.5)
[2017-01-16 03:43] LABS: APPEARANCE,URINE CLEAR; BILIRUBIN,URINE NEGATIVE (NEGATIVE); GLUCOSE, URINE 50 mg/dL (NEGATIVE); KETONES,URINE NEGATIVE (NEGATIVE); LEUKOCYTE ESTERASE,URINE NEGATIVE (NEGATIVE); NITRITE,URINE NEGATIVE (NEGATIVE); PROTEIN,URINE 30 mg/dL (NEGATIVE); URINE SPECIFIC GRAVITY 1.012; UROBILINOGEN,URINE NEGATIVE mg/dL (<2.0)
[2017-01-16 03:51] LABS: ANION GAP 9 (5-19); BLOOD UREA NITROGEN 35 mg/dL (7-20); CARBON DIOXIDE 23 mmol/L (22-30); CHLORIDE 101 mmol/L (98-107); CREATININE RESULT 1.76 mg/dL (0.52-1.25); GLUCOSE 168 mg/dL (75-110); POTASSIUM 4.6 mmol/L (3.6-5.0); SODIUM 133.1 mmol/L (137-145)
--- NOTE | 2017-01-16 03:56 | RADIOLOGY REPORT (SQ) ---
EXAM DESCRIPTION: CT HEAD WITHOUT COMPLETED DATE/TIME: 01/16/2017 3:39 am REASON FOR STUDY: fall COMPARISON: None. TECHNIQUE: Axial images acquired through the brain without intravenous contrast. Images reviewed wi th bone, brain and subdural windows. Images stored on PACS. All CT scanners at this facility use dose modulation, iterative reconstruction, and/or weight based d osing when appropriate to reduce radiation dose to as low as reasonably achievable (ALARA). [facility]: Dose Right [facility]: CareDose [facility]: Dose Right [facility]: Teradose 4D [facility]: Smart [place] RADIATION DOSE: Up-to-date CT equipment and radiation dose reduction techniques were employed. CTDIv ol: 55.2 mGy. DLP: 1084 mGy-cm. mGy. LIMITATIONS: None. FINDINGS: VENTRICLES: Normal size and contour. CEREBRUM: No masses. No hemorrhage. No midline shift. Normal greene/white matter differentiation. N o evidence for acute infarction. Mild cerebral volume loss. Mild -moderate white matter microangiop athy pattern. Small lacunar infarcts of bilateral basal ganglia. CEREBELLUM: No masses. No hemorrhage. No alteration of density. No evidence for acute infarction. EXTRAAXIAL SPACES: No fluid collections. No masses. Atherosclerosis. ORBITS AND GLOBE: No intra- or extraconal masses. Normal contour of globe without masses. CALVARIUM: No fracture. PARANASAL SINUSES: No fluid or mucosal thickening. SOFT TISSUES: Minimal left anterior parietal scalp swelling. OTHER: No other significant finding. IMPRESSION: No acute intracranial findings. Mild scalp swelling. TECHNICAL DOCUMENTATION: JOB ID: [id number] Quality ID # [id number]: Final reports with documentation of one or more dose reduction techniques (e.g., Au tomated exposure control, adjustment of the mA and/or kV according to patient size, use of iterative reconstruction technique) 2010 [employer]- All Rights Reserved
--- NOTE | 2017-01-16 04:18 | RADIOLOGY REPORT (SQ) ---
EXAM DESCRIPTION: FOREARM LEFT COMPLETED DATE/TIME: 01/16/2017 4:06 am REASON FOR STUDY: FALL COMPARISON: None. NUMBER OF VIEWS: Two views. TECHNIQUE: Two radiographic images acquired of the left forearm, including elbow and wrist in at arpit st one projection. LIMITATIONS: None. FINDINGS: MINERALIZATION: Normal. BONES: No acute fracture. No worrisome bone lesions. 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 SOFT TISSUES: No obvious swelling or foreign body. OTHER: Atherosclerosis. Mild osteoarthritis of the left wrist, hand, and elbow, partially imaged. IMPRESSION: NO RADIOGRAPHIC EVIDENCE OF ACUTE INJURY. TECHNICAL DOCUMENTATION: JOB ID: [id number] [employer]- All Rights Reserved
--- NOTE | 2017-01-16 04:20 | RADIOLOGY REPORT (SQ) ---
EXAM DESCRIPTION: HUMERUS LEFT COMPLETED DATE/TIME: 01/16/2017 4:06 am REASON FOR STUDY: FALL COMPARISON: None. NUMBER OF VIEWS: Two views. TECHNIQUE: Two radiographic images were acquired of the left humerus to include elbow and shoulder i n at least one projection. LIMITATIONS: None. FINDINGS: MINERALIZATION: Normal. BONES: No acute fracture or dislocation. No worrisome bone lesions. SOFT TISSUES: No obvious swelling or foreign body. OTHER: Mild osteoarthritis. IMPRESSION: NEGATIVE STUDY OF THE LEFT HUMERUS. NO RADIOGRAPHIC EVIDENCE OF ACUTE INJURY. TECHNICAL DOCUMENTATION: JOB ID: [id number] [employer]- All Rights Reserved
--- NOTE | 2017-01-16 04:36 | ER Document Report ---
ED General - General Chief Complaint: Fall Injury Stated Complaint: FALL,HEAD INJURY Time Seen by Provider: 01/16/17 02:45 Notes: Patient is an 86-year-old male who presents after a fall. Son is at bedside. Son is his bilingual social worker. Some says recently he has been falling more often. 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 He says it appears that he is not lifting his feet up as much when he walks to the used to and he has been tripping. He fell a week ago and was seen in the ER. X-rays of his arm are negative. Comes back today because he did fall and hit his head. Does have a small hematoma on his forehead. I did offer to get a medical cad designer but the son prefers to interpret himself father. He agreed to repeat my questions the exactly as I asked them. Patient says he feels well except for pain in the left arm where he has bruising. TRAVEL OUTSIDE OF THE [place] IN LAST 30 DAYS: No - Related Data Allergies/Adverse Reactions: alprazolam [From Xanax] Allergy (Verified 01/10/17 04:13) brinzolamide [From Azopt] Allergy (Verified 01/10/17 04:13) levofloxacin [From Levaquin] Allergy (Verified 01/10/17 04:13) Sulfa (Sulfonamide Antibiotics) Allergy (Verified 01/10/17 04:13) grapes Allergy (Uncoded 01/10/17 04:13) peaches Allergy (Uncoded 01/10/17 04:13) Past Medical History - Social History Smoking Status: Unknown if Ever Smoked Frequency of alcohol use: None Drug Abuse: None Family History: Reviewed & Not Pertinent - Past Medical History Cardiac Medical History: Reports: Hx Hypertension Neurological Medical History: Reports: Hx Cerebrovascular Accident Endocrine Medical History: Reports: Hx Diabetes Mellitus Type 2 - oral Renal/ Medical History: Denies: Hx Peritoneal Dialysis GI Medical History: Reports: Hx Gastroesophageal Reflux Disease Psychiatric Medical History: Reports: Hx Dementia Past Surgical History: Reports: Hx Abdominal Surgery - SBO - Immunizations Hx Diphtheria, Pertussis, Tetanus Vaccination: Yes Review of Systems - Review of Systems Notes: My Normal Review Basic REVIEW OF SYSTEMS: CONSTITUTIONAL : Denies fever, chills, or sweats. Denies recent illness. EENT: Denies eye, ear, throat, or mouth pain or symptoms. Denies nasal or sinus congestion. CARDIOVASCULAR: Denies chest pain. RESPIRATORY: Denies cough, cold, or chest congestion. Denies shortness of breath, difficulty breathing, or wheezing. GASTROINTESTINAL: Denies abdominal pain. Denies nausea, vomiting, or diarrhea. Denies constipation. Last BM: GENITOURINARY: Denies difficulty urinating, painful urination, burning, frequency, or blood in urine. FEMALE GENITOURINARY: Denies vaginal bleeding, abnormal or irregular periods. LMP: MUSCULOSKELETAL: left arm pain SKIN: Denies rash or skin lesions. NEUROLOGICAL: Denies altered mental status or loss of consciousness. Denies headache. Denies weakness or paralysis or loss of use of either side. Denies problems with gait or speech. Denies sensory or motor loss. ALL OTHER SYSTEMS REVIEWED AND NEGATIVE. Physical Exam - Vital signs Vitals: Resp 12 01/16/17 02:19 - Notes Notes: General Appearance: Well nourished, alert, cooperative, no acute distress, no obvious discomfort. Vitals: reviewed, See vital signs table. Head: Small hematoma over left forehead. Eyes: PERRL, EOMI, Conjuctiva clear Mouth: No decreasd moisture Neck: Supple, no neck tenderness Lungs: No wheezing, No rales, No rhonci, No accessory muscle use, good air exchange bilaterally. Heart: Normal rate, Regular rythm, No murmur, no rub Abdomen: Normal BS, soft, No rigidity, No abdominal tenderness, No guarding, no rebound, no abdominal masses, no organomegaly Extremities: strength 5/5 in all extremities, good pulses in all extremities, bleeding over the left arm. Pain to palpation of this area and pain with movement of the left arm. Remainder of upper extremity is nontender except for the pain over the humerus., no edema. Skin: warm, dry, appropriate color, no rash Neuro: speech clear, oriented x 3, normal affect, responds appropriately to questions. Cranial nerves II through XII are intact. Distal sensation intact. Patient moves all extremities without difficulty. Good strength with plantar dorsiflexion against resistance. With gait patient's gait is very guarded and I do assist him so he does not fall. 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 When he is lying in bed he actually has very good strength in his lower extremities with plantar dorsiflexion also with lifting his legs off the bed. He gait is very guarded when he is walking. At this time I think it is more appropriate for him to have a walker. I informed his son that we would prescribe him a walker but she should still be closely monitored whenever he is up and ambulating to make sure he has assistance. I encouraged him to bring him back to the ER immediately if he has recurrent falls, severe headache, vomiting, or appears unwell. Son agrees with plan and patient will be discharged home. Dictation of this chart was performed using voice recognition software; therefore, there may be some unintended grammatical errors. Discharge - Discharge Clinical Impression: Ataxia Fall Qualifiers: Encounter type: initial encounter Qualified Code(s): W19.XXXA - Unspecified fall, initial encounter Scalp hematoma Qualifiers: Encounter type: initial encounter Qualified Code(s): S00.03XA - Contusion of scalp, initial encounter Traumatic ecchymosis of left upper arm Qualifiers: Encounter type: initial encounter Qualified Code(s): S40.022A - Contusion of left upper arm, initial encounter Condition: Good Disposition: HOME, SELF-CARE Additional Instructions: Please follow up with Dr. Hernandez in 2-3 days for reevaluation. Please try to keep Mr. Her from walking on his own. I will prescribe a walker to help assist him. Return to the ER if he has severe headaches, vomiting, or appears unwell. Prescriptions: Walker [Ultra-Light Rollator] 1 each ONCE #1 each Referrals: VIRI HERNANDEZ MD [Primary Care Provider] - 01/18/17
[2017-01-16 04:39] VITALS: BP 140/63
== END 2017-01-16 04:37 | disposition home or self-care (01) ==
LOC: ER 01:53
DX: R27.0 Ataxia, unspecified (principal); S00.03XA Contusion of scalp, initial encounter; W01.0XXA Fall on same level from slipping, tripping and stumbling without subsequent striking against object, initial encounter; I10 Essential (primary) hypertension; E11.9 Type 2 diabetes mellitus without complications; K21.9 Gastro-esophageal reflux disease without esophagitis; Z86.73 Personal history of transient ischemic attack (TIA), and cerebral infarction without residual deficits; Z91.81 History of falling; Z88.2 Allergy status to sulfonamides
CPT/HCPCS: 36415; 70450; 80048; 81001; 85025; 99284

== ENCOUNTER 2017-02-24 08:37 | Emergency (ER) | payer MEDICARE, OTHER ==
[2017-02-24 10:06] LABS: ABSOLUTE BASOPHILS # (AUTO) 0.1 10^3/uL (0.0-0.2); ABSOLUTE EOSINOPHILS # (AUTO) 0.2 10^3/uL (0.0-0.6); ABSOLUTE LYMPHOCYTES (AUTO) 1.6 10^3/uL (0.5-4.7); ABSOLUTE MONOCYTES (AUTO) 0.9 10^3/uL (0.1-1.4); ABSOLUTE NEUT (AUTO) 6.4 10^3/uL (1.7-8.2); BASOPHILS % (AUTO) 0.6 % (0-2); EOSINOPHILS % (AUTO) 2.2 % (0-6); HEMATOCRIT 41.9 % (37.9-51.0); HEMOGLOBIN 14.5 g/dL (13.5-17.0); HGB HCT DIFFERENCE 1.6; LYMPHOCYTES % (AUTO) 17.6 % (13-45); MEAN CORPUSCULAR HEMOGLOBIN 30.7 pg (27.0-33.4); MEAN CORPUSCULAR HGB CONC 34.5 g/dL (32.0-36.0); MEAN CORPUSCULAR VOLUME 89 fl (80-97); MONOCYTES % (AUTO) 9.7 % (3-13); RED CELL DISTRIBUTION WIDTH 13.3 % (11.5-14.0); SEGMENTED NEUTROPHILS % (AUTO) 69.9 % (42-78); WHITE BLOOD COUNT 9.1 10^3/uL (4.0-10.5)
[2017-02-24 10:09] LABS: APPEARANCE,URINE CLEAR; BILIRUBIN,URINE NEGATIVE (NEGATIVE); GLUCOSE, URINE NEGATIVE (NEGATIVE); KETONES,URINE NEGATIVE (NEGATIVE); LEUKOCYTE ESTERASE,URINE NEGATIVE (NEGATIVE); NITRITE,URINE NEGATIVE (NEGATIVE); PROTEIN,URINE NEGATIVE (NEGATIVE); UROBILINOGEN,URINE NEGATIVE mg/dL (<2.0)
--- NOTE | 2017-02-24 10:11 | ER Document Report ---
ED GI/ - General Chief Complaint: Urinary Problem Stated Complaint: URINARY ISSUES Time Seen by Provider: 02/24/17 08:59 Mode of Arrival: Wheelchair Information source: Patient, Relative Notes: Family prefer to act as machine tester for patient. Patient presents with increased thirst and urination at night. Patient's son states that patient stays up late at night watching TV and then drinks a lot of fluids and has to void frequently disturbing his sleep. Patient's son states that his blood sugar has been in the normal range at 114 today. Patient without any fever, vomiting or diarrhea. Patient without any pain complaints. Patient son states that his thirst and urination patterns are normal during the daytime. TRAVEL OUTSIDE OF THE [place] IN LAST 30 DAYS: No - HPI Patient complains to provider of: Other - insomnia, freq urination and increased thirst only at night. No: Abdominal pain Quality of pain: No pain Pain Level: Denies Associated symptoms: Urinary frequency. denies: Chest pain, Dysuria, Fever, Loss of appetite, Nausea, Vomiting Exacerbated by: Denies Relieved by: Denies Similar symptoms previously: No Recently seen / treated by doctor: No - Related Data Allergies/Adverse Reactions: alprazolam [From Xanax] Allergy (Verified 02/24/17 08:53) brinzolamide [From Azopt] Allergy (Verified 02/24/17 08:53) levofloxacin [From Levaquin] Allergy (Verified 02/24/17 08:53) Sulfa (Sulfonamide Antibiotics) Allergy (Verified 02/24/17 08:53) grapes Allergy (Uncoded 02/24/17 08:53) peaches Allergy (Uncoded 02/24/17 08:53) Past Medical History - General Information source: Patient, Relative - Social History Smoking Status: Never Smoker Frequency of alcohol use: None Drug Abuse: None Lives with: Family Family History: Reviewed & Not Pertinent - Past Medical History Cardiac Medical History: Reports: Hx Hypertension Neurological Medical History: Reports: Hx Cerebrovascular Accident Endocrine Medical History: Reports: Hx Diabetes Mellitus Type 2 - oral Renal/ Medical History: Denies: Hx Peritoneal Dialysis GI Medical History: Reports: Hx Gastroesophageal Reflux Disease Psychiatric Medical History: Reports: Hx Dementia Past Surgical History: Reports: Hx Abdominal Surgery - SBO - Immunizations Hx Diphtheria, Pertussis, Tetanus Vaccination: Yes Review of Systems - Review of Systems Constitutional: No symptoms reported. denies: Fever, Recent illness EENT: No symptoms reported Cardiovascular: No symptoms reported. denies: Chest pain Respiratory: No symptoms reported. denies: Cough, Short of breath Gastrointestinal: Other - increased thirst at night. denies: Abdomen distended , Diarrhea, Nausea, Vomiting Genitourinary: Frequency - during the night Male Genitourinary: No symptoms reported. denies: Testicular pain Musculoskeletal: No symptoms reported. denies: Back pain Skin: No symptoms reported Hematologic/Lymphatic: No symptoms reported Neurological/Psychological: Other - insomnia Physical Exam - Vital signs Vitals: Temp Pulse Resp BP Pulse Ox 97.8 F 63 16 151/58 H 96 02/24/17 08:54 02/24/17 08:54 02/24/17 08:54 02/24/17 08:54 02/24/17 08:54 - General General appearance: Appears well, Alert In distress: None - HEENT Head: Normocephalic, Atraumatic Eyes: Normal Conjunctiva: Normal Ears: Normal External canal: Normal Sinus: Normal Nasal: Normal Mouth/Lips: Normal Mucous membranes: Normal Pharynx: Normal Neck: Normal, Supple. No: Lymphadenopathy - Respiratory Respiratory status: No respiratory distress Chest status: Nontender Breath sounds: Normal. No: Rales, Rhonchi, Stridor, Wheezing Chest palpation: Normal - Cardiovascular Rhythm: Regular Heart sounds: S1 appreciated, S2 appreciated Murmur: No - Abdominal Inspection: Normal Distension: No distension Bowel sounds: Normal Tenderness: Nontender Organomegaly: No organomegaly - Back Back: Normal, Nontender. No: CVA tenderness - Extremities General upper extremity: Normal inspection, Normal ROM General lower extremity: Normal inspection, Normal ROM. No: Edema - Neurological Sebastien Coma Scale Eye Opening: Spontaneous Sebastien Coma Scale Verbal: Oriented Sebastien Coma Scale Motor: Obeys Commands Sebastien Coma Scale Total: 15 - Psychological Associated symptoms: Normal affect - Skin Skin Temperature: Warm Skin Moisture: Dry Skin Color: Normal Course - Re-evaluation Re-evalutation: 02/24/17 10:[address] Rogers who advises giving ivf bolus, no additional diagnostic tests advised. 02/24/17 11:50 Patient resting comfortably, abdomen soft, nontender. Patient without any complaints at this time. No vomiting or diarrhea. Patient denies any excessive thirst at this time. Discussed plan of care with patient's son and strategic manager who is agreeable with discharge plan of care. Patient advised to follow-up with his primary care provider tomorrow for recheck. Son verbalized understanding and agrees with this plan of care. - Vital Signs Vital signs: Temp Pulse Resp BP Pulse Ox 97.6 F 77 18 150/64 H 97 02/24/17 11:59 02/24/17 11:59 02/24/17 11:59 02/24/17 11:59 02/24/17 11:59 - Laboratory Result Diagrams: 02/24/17 09:52 02/24/17 09:52 Laboratory results interpreted by me: 02/24/17 09:52 Sodium 135.5 L BUN 33 H Creatinine 1.51 H Est GFR ( Amer) 53 L Est GFR (Non-Af Amer) 44 L Glucose 131 H Alkaline Phosphatase 206 H Labs- Entire Visit 02/24/17 02/24/17 02/24/17 09:52 09:52 09:52 WBC 9.1 RBC 4.70 Hgb 14.5 Hct 41.9 MCV 89 MCH 30.7 MCHC 34.5 RDW 13.3 Plt Count 256 Seg Neutrophils % 69.9 Lymphocytes % 17.6 Monocytes % 9.7 Eosinophils % 2.2 Basophils % 0.6 Absolute Neutrophils 6.4 Absolute Lymphocytes 1.6 Absolute Monocytes 0.9 Absolute Eosinophils 0.2 Absolute Basophils 0.1 Sodium 135.5 L Potassium 4.4 Chloride 101 Carbon Dioxide 26 Anion Gap 9 BUN 33 H Creatinine 1.51 H Est GFR ( Amer) 53 L Est GFR (Non-Af Amer) 44 L Glucose 131 H Calcium 9.2 Magnesium 2.2 Total Bilirubin 0.6 Direct Bilirubin 0.3 Indirect Bilirubin Not Reportable Neonat Total Bilirubin Not Reportable AST 34 ALT 31 Alkaline Phosphatase 206 H Total Protein 6.9 Albumin 4.0 Urine Color STRAW Urine Appearance CLEAR Urine pH 6.0 Ur Specific [place]rose 1.010 Urine Protein NEGATIVE Urine Glucose (UA) NEGATIVE Urine Ketones NEGATIVE Urine Blood NEGATIVE Urine Nitrite NEGATIVE Urine Bilirubin NEGATIVE Urine Urobilinogen NEGATIVE Ur Leukocyte Esterase NEGATIVE Urine RBC (Auto) 0 Urine Ascorbic Acid NEGATIVE Discharge - Discharge Clinical Impression: Urinary symptom or sign, nocturnal urinary frequency, Abnormal renal function test Insomnia Qualifiers: Insomnia type: unspecified Qualified Code(s): G47.00 - Insomnia, unspecified Condition: Stable Disposition: HOME, SELF-CARE Instructions: Kidney Function Abnormality ([facility]), Insomnia ([facility]) Additional Instructions: Return immediately for any new or worsening symptoms Followup with your primary care provider, call tomorrow to make a followup appointment Limit excessive fluid intake during the night to avoid having to get up to go to the bathroom frequently follow up with Dr Hernandez tomorrow for a recheck Forms: Elevated Blood Pressure Referrals: VIRI HERNANDEZ MD [Primary Care Provider] - Follow up tomorrow
[2017-02-24 10:26] LABS: ALANINE AMINOTRANSFERASE 31 U/L (21-72); ALKALINE PHOSPHATASE 206 U/L (38-126); ANION GAP 9 (5-19); ASPARTATE AMINO TRANSFERASE 34 U/L (17-59); BILIRUBIN,DIRECT 0.3 mg/dL (0.0-0.4); BILIRUBIN,TOTAL 0.6 mg/dL (0.2-1.3); BLOOD UREA NITROGEN 33 mg/dL (7-20); CALCIUM 9.2 mg/dL (8.4-10.2); CARBON DIOXIDE 26 mmol/L (22-30); CHLORIDE 101 mmol/L (98-107); CREATININE RESULT 1.51 mg/dL (0.52-1.25); GLUCOSE 131 mg/dL (75-110); MAGNESIUM 2.2 mg/dL (1.6-2.3); POTASSIUM 4.4 mmol/L (3.6-5.0); SODIUM 135.5 mmol/L (137-145); TOTAL PROTEIN 6.9 g/dL (6.3-8.2)
[2017-02-24] MEDS ORDERED: NORMAL SALINE 1000 ML 500 ML IV ONE (10:57)
[2017-02-24 12:13] VITALS: BP 150/64
== END 2017-02-24 12:13 | disposition home or self-care (01) ==
LOC: ER 08:37
DX: R35.0 Frequency of micturition (principal); R94.4 Abnormal results of kidney function studies; E11.9 Type 2 diabetes mellitus without complications; G47.00 Insomnia, unspecified; R63.1 Polydipsia; I10 Essential (primary) hypertension; Z88.8 Allergy status to other drugs, medicaments and biological substances; Z88.1 Allergy status to other antibiotic agents; Z88.0 Allergy status to penicillin; Z91.018 Allergy to other foods
CPT/HCPCS: 99283; 36415; 87086; 83735; 85025; 80053; 81001; J7030

== ENCOUNTER → 2017-03-08 | Outpatient (CLI) | payer MEDICARE, OTHER ==
[2017-03-08 16:23] LABS: ABSOLUTE EOSINOPHILS # (AUTO) 0.2 10^3/uL (0.0-0.6); ABSOLUTE LYMPHOCYTES (AUTO) 1.6 10^3/uL (0.5-4.7); ABSOLUTE MONOCYTES (AUTO) 0.8 10^3/uL (0.1-1.4); ABSOLUTE NEUT (AUTO) 4.4 10^3/uL (1.7-8.2); BASOPHILS % (AUTO) 0.5 % (0-2); EOSINOPHILS % (AUTO) 2.8 % (0-6); HEMATOCRIT 43.2 % (37.9-51.0); HGB HCT DIFFERENCE 1.8; LYMPHOCYTES % (AUTO) 23.2 % (13-45); MEAN CORPUSCULAR HEMOGLOBIN 30.6 pg (27.0-33.4); MEAN CORPUSCULAR HGB CONC 34.8 g/dL (32.0-36.0); MEAN CORPUSCULAR VOLUME 88 fl (80-97); MONOCYTES % (AUTO) 11.5 % (3-13); RED BLOOD COUNT 4.91 10^6/uL (4.35-5.55); RED CELL DISTRIBUTION WIDTH 13.5 % (11.5-14.0); WHITE BLOOD COUNT 7.1 10^3/uL (4.0-10.5)
[2017-03-08 16:47] LABS: ALANINE AMINOTRANSFERASE 31 U/L (21-72); ALBUMIN 4.4 g/dL (3.5-5.0); ALKALINE PHOSPHATASE 161 U/L (38-126); ANION GAP 13 (5-19); ASPARTATE AMINO TRANSFERASE 41 U/L (17-59); BILIRUBIN,DIRECT 0.5 mg/dL (0.0-0.4); BLOOD UREA NITROGEN 22 mg/dL (7-20); CALCIUM 9.4 mg/dL (8.4-10.2); CARBON DIOXIDE 26 mmol/L (22-30); CHLORIDE 97 mmol/L (98-107); CHOLESTEROL 173.23 mg/dL (0-200); CREATININE RESULT 1.11 mg/dL (0.52-1.25); Direct HDL 64 mg/dL (>40); GLUCOSE 108 mg/dL (75-110); POTASSIUM 4.3 mmol/L (3.6-5.0); SODIUM 135.8 mmol/L (137-145); TOTAL PROTEIN 7.3 g/dL (6.3-8.2); TRIGLYCERIDES 68 mg/dL (<150)
[2017-03-08 16:59] LABS: DIRECT LDL 90 mg/dL (<100)
[2017-03-08 17:05] LABS: BLOOD UREA NITROGEN 22 mg/dL (7-20); CALCIUM 9.4 mg/dL (8.4-10.2); CREATININE RESULT 1.11 mg/dL (0.52-1.25); GLUCOSE 108 mg/dL (75-110)
[2017-03-08 17:06] LABS: ANION GAP 13 (5-19); CARBON DIOXIDE 26 mmol/L (22-30); CHLORIDE 97 mmol/L (98-107); POTASSIUM 4.3 mmol/L (3.6-5.0); SODIUM 135.8 mmol/L (137-145)
== END ==
LOC: OD 15:05
PROVIDERS: ATTEND Physician Assistant
DX: I10 Essential (primary) hypertension (principal); E78.5 Hyperlipidemia, unspecified; E08.69 Diabetes mellitus due to underlying condition with other specified complication; R94.4 Abnormal results of kidney function studies; R35.1 Nocturia
CPT/HCPCS: 36415; 80048; 80053; 80061; 83036; 84153; 85025

== ENCOUNTER → 2017-04-15 | Outpatient (CLI) | payer MEDICARE, OTHER ==
--- NOTE | 2017-04-15 16:50 | RADIOLOGY REPORT (SQ) ---
EXAM DESCRIPTION: CT HEAD WITHOUT COMPLETED DATE/TIME: 04/15/2017 4:24 pm REASON FOR STUDY: DEMENTIA F03.91 UNSPECIFIED DEMENTIA WITH BEHAVIORAL DISTURBANCE COMPARISON: 01/16/2017. TECHNIQUE: Axial images acquired through the brain without intravenous contrast. Images reviewed wi th bone, brain and subdural windows. Images stored on PACS. All CT scanners at this facility use dose modulation, iterative reconstruction, and/or weight based d osing when appropriate to reduce radiation dose to as low as reasonably achievable (ALARA). [facility]: Dose Right [facility]: CareDose [facility]: Dose Right [facility]: Teradose 4D [facility]: Smart [employer] RADIATION DOSE: Up-to-date CT equipment and radiation dose reduction techniques were employed. CTDIv ol: 49.0 mGy. DLP: 783 mGy-cm.mGy. LIMITATIONS: None. FINDINGS: VENTRICLES: Prominent. CEREBRUM: No masses. No hemorrhage. No midline shift. Areas of low density in the white matter mos t likely due to chronic micro-vascular ischemic change. No evidence for acute infarction. CEREBELLUM: No masses. No hemorrhage. No alteration of density. No evidence for acute infarction. EXTRAAXIAL SPACES: Age-related involutional change. No fluid collections. No masses. ORBITS AND GLOBE: No intra- or extraconal masses. Normal contour of globe without masses. CALVARIUM: No fracture. PARANASAL SINUSES: No fluid or mucosal thickening. SOFT TISSUES: No mass or hematoma. OTHER: No other significant finding. IMPRESSION: CHRONIC CHANGES OF ATROPHY AND MICROVASCULAR ISCHEMIA. NO ACUTE PROCESS. EVIDENCE OF ACUTE STROKE: NO. TECHNICAL DOCUMENTATION: JOB ID: [id number] Quality ID # [id number]: Final reports with documentation of one or more dose reduction techniques (e.g., Au tomated exposure control, adjustment of the mA and/or kV according to patient size, use of iterative reconstruction technique) 2010 [employer]- All Rights Reserved
== END ==
LOC: RAD 16:04
PROVIDERS: ATTEND Family Medicine
DX: F03.91 Unspecified dementia, unspecified severity, with behavioral disturbance (principal)
CPT/HCPCS: 70450

== ENCOUNTER 2017-05-18 22:06 | Emergency (ER) | payer MEDICARE, OTHER ==
[2017-05-18] MEDS ORDERED: ACETAMINOPHEN 325 MG TABLET PO ONE (22:35)
--- NOTE | 2017-05-18 22:40 | ER Document Report ---
ED General - General Chief Complaint: Fall Stated Complaint: FALL/HEAD INJURY Time Seen by Provider: 05/18/17 22:29 Information source: Relative Cannot obtain history due to: Dementia Notes: Patient is an 87-year-old male with past history of dementia who presents after mechanical fall. History is as provided by the son as the patient is demented and unable to provide meaningful history. Apparently the patient did trip over his own feet today while walking next to his son. He apparently landed on his right side striking the back of his head and right lower extremity. Patient was able to stand up and ambulate without any difficulty thereafter. The son however was concerned as patient did hit his head and is currently taking clopidogrel. The patient has not had any vomiting, focal weakness, numbness, or altered mental status relative to his baseline. The patient himself denies any pain at this time. There was no syncopal event preceding today's event. Patient has a history of similar falls in the past. He has not seen his primary doctor regarding today's concerns. TRAVEL OUTSIDE OF THE [place] IN LAST 30 DAYS: No - Related Data Allergies/Adverse Reactions: alprazolam [From Xanax] Allergy (Verified 02/24/17 08:53) brinzolamide [From Azopt] Allergy (Verified 02/24/17 08:53) levofloxacin [From Levaquin] Allergy (Verified 02/24/17 08:53) Sulfa (Sulfonamide Antibiotics) Allergy (Verified 02/24/17 08:53) grapes Allergy (Uncoded 02/24/17 08:53) peaches Allergy (Uncoded 02/24/17 08:53) Past Medical History - General Information source: Relative Cannot obtain history due to: Dementia - Social History Smoking Status: Never Smoker Frequency of alcohol use: None Drug Abuse: None Lives with: Family Family History: Reviewed & Not Pertinent - Past Medical History Cardiac Medical History: Reports: Hx Hypertension Neurological Medical History: Reports: Hx Cerebrovascular Accident Endocrine Medical History: Reports: Hx Diabetes Mellitus Type 2 - oral Renal/ Medical History: Denies: Hx Peritoneal Dialysis GI Medical History: Reports: Hx Gastroesophageal Reflux Disease Psychiatric Medical History: Reports: Hx Dementia Past Surgical History: Reports: Hx Abdominal Surgery - SBO, Hx Orthopedic Surgery - Immunizations Hx Diphtheria, Pertussis, Tetanus Vaccination: Yes Review of Systems - Review of Systems Notes: Constitutional: Negative for fever. Eyes: Negative for visual changes. ENT: Negative for facial injury Cardiovascular: Negative for chest injury. Respiratory: Negative for shortness of breath. Gastrointestinal: Negative for abdominal injury. Genitourinary: Negative for genital injury Musculoskeletal: Negative for back injury. Skin: Negative for laceration/abrasions. Neurological: Positive for head injury. Physical Exam - Vital signs Vitals: Temp Pulse Resp BP Pulse Ox 97.7 F 74 16 173/57 H 97 05/18/17 22:14 05/18/17 22:14 05/18/17 22:14 05/18/17 22:14 05/18/17 22:14 Interpretation: Hypertensive Notes: PHYSICAL EXAMINATION: GENERAL: Well-appearing, no acute distress. HEAD: Atraumatic, normocephalic. EYES: Pupils equal round and reactive to light, extraocular movements intact, sclera anicteric, conjunctiva are normal. ENT: nares patent, no oral pharyngeal trauma. No hemotympanum, no Gilbert's sign , no raccoon eyes. NECK: No midline cervical spine tenderness. Patient able to move their head to 45 bilaterally without any discomfort. LUNGS: Breath sounds clear to auscultation bilaterally and equal. No wheezes rales or rhonchi. HEART: Regular rate and rhythm without murmurs. CHEST WALL: No ecchymosis over the chest wall. ABDOMEN: Soft, nontender, normoactive bowel sounds. No guarding, no rebound. No abdominal bruising EXTREMITIES: Normal range of motion, no pitting or edema. No long bone deformities. BACK: No midline spinal tenderness, step-offs, or deformities. NEUROLOGICAL: Face symmetric. Tongue protrudes midline. Extraocular motions intact. Pupils are 2 mm and equally reactive. Normal speech, normal gait. 5 out of 5 strength in both the distal and proximal upper and lower extremities bilaterally. Sensation is grossly intact throughout. Finger to nose testing normal. Pronator drift normal. PSYCH: Normal mood, normal affect. SKIN: Warm, Dry, normal turgor, no rashes or lesions noted. Course - Re-evaluation Re-evalutation: 05/18/17 22:36 Presentation of a well appearing elderly patient in no acute distress, vitals within normal limits after a mechanical mechanical fall. Patient denies a syncopal episode as the cause for today's fall. No focal neurologic deficits on exam, no evidence of basilar skull fracture on exam without evidence of hemotympanum, raccoon eyes, or periauricular hematoma. No papilledema. Patient is not on anticoagulation. GCS is 15. No loss of consciousness. No episodes of vomiting. However, based on patient's age a CT of the head has been obtained which is negative for any acute intracranial bleed.. Likewise, patient was unable to be clinically cleared due to age by [place] cervical spine criteria. A CT of the cervical spine was also obtained and likewise is negative for any acute fracture. No indication for further imaging of the cervical spine. Patient has no focal deformities or limited range of motion in any joint space. Chest and abdominal exam are benign without any focal tenderness, shortness of breath, or bruising over the chest or abdominal wall. Patient has no flank tenderness. There is no obvious findings on trauma exam today and therefore no further imaging or evaluation will be obtained at this time. At this time will discharge with return precautions and follow-up recommendations. Verbal discharge instructions given a the bedside and opportunity for questions given. Medication warnings reviewed. Patient is in agreement with this plan and has verbalized understanding of return precautions and the need for primary care follow-up in the next 24-72 hours. - Vital Signs Vital signs: Temp Pulse Resp BP Pulse Ox 97.7 F 74 16 173/57 H 97 05/18/17 22:15 05/18/17 22:15 05/18/17 22:15 05/18/17 22:15 05/18/17 22:15 Discharge - Discharge Clinical Impression: Fall Qualifiers: Encounter type: initial encounter Qualified Code(s): W19.XXXA - Unspecified fall, initial encounter Head trauma Qualifiers: Encounter type: initial encounter Qualified Code(s): S09.90XA - Unspecified injury of head, initial encounter Condition: Good Disposition: HOME, SELF-CARE Additional Instructions: You have been seen in the Emergency Department (ED) today following a fall. Your workup today did not reveal any injuries that require you to stay in the hospital. You can expect, though, to be stiff and sore for the next several days. You can take Tylenol 1000 mg every 6 hours as needed for pain. You can apply a hot pack or electric heating pad to the sore areas. You can also use topical "Aspercreme with lidocaine" to sore areas as needed. Please follow up with your primary care doctor as soon as possible regarding today's ED visit and your recent accident. Call your doctor or return to the ED if you develop a sudden or severe headache , confusion, slurred speech, facial droop, weakness or numbness in any arm or leg, extreme fatigue, vomiting more than two times, severe abdominal pain, or other symptoms that concern you.
--- NOTE | 2017-05-18 23:37 | RADIOLOGY REPORT (SQ) ---
EXAM DESCRIPTION: CT HEAD WITHOUT COMPLETED DATE/TIME: 05/18/2017 11:20 pm REASON FOR STUDY: fall COMPARISON: 04/15/2017 and 01/16/2017 TECHNIQUE: Axial images acquired through the brain without intravenous contrast. Images reviewed wi th bone, brain and subdural windows. Images stored on PACS. All CT scanners at this facility use dose modulation, iterative reconstruction, and/or weight based d osing when appropriate to reduce radiation dose to as low as reasonably achievable (ALARA). [facility]: Dose Right [facility]: CareDose [facility]: Dose Right [facility]: Teradose 4D [facility]: [employer] RADIATION DOSE: Up-to-date CT equipment and radiation dose reduction techniques were employed. CTDIv ol: 64.6 mGy. DLP: 1163 mGy-cm.mGy. LIMITATIONS: None. FINDINGS: VENTRICLES: Prominent. CEREBRUM: No masses. No hemorrhage. No midline shift. Areas of low density in the white matter mos t likely due to chronic micro-vascular ischemic change. No evidence for acute infarction. CEREBELLUM: No masses. No hemorrhage. No alteration of density. No evidence for acute infarction. EXTRAAXIAL SPACES: Age-related involutional change. No fluid collections. No masses. ORBITS AND GLOBE: No intra- or extraconal masses. Normal contour of globe without masses. CALVARIUM: No fracture. PARANASAL SINUSES: No fluid or mucosal thickening. SOFT TISSUES: No mass or hematoma. OTHER: No other significant finding. IMPRESSION: CHRONIC CHANGES OF ATROPHY AND MICROVASCULAR ISCHEMIA. NO ACUTE PROCESS. EVIDENCE OF ACUTE STROKE: NO. TECHNICAL DOCUMENTATION: JOB ID: [id number] Quality ID # [id number]: Final reports with documentation of one or more dose reduction techniques (e.g., Au tomated exposure control, adjustment of the mA and/or kV according to patient size, use of iterative reconstruction technique) 2010 [employer]- All Rights Reserved
--- NOTE | 2017-05-18 23:41 | RADIOLOGY REPORT (SQ) ---
EXAM DESCRIPTION: CT CERVICAL SPINE WITHOUT COMPLETED DATE/TIME: 05/18/2017 11:20 pm REASON FOR STUDY: fall COMPARISON: None. TECHNIQUE: Axial images acquired through the cervical spine without intravenous contrast. Images re viewed with lung, soft tissue and bone windows. Reconstructed coronal and sagittal MPR images review ed. Images stored on PACS. All CT scanners at this facility use dose modulation, iterative reconstruction, and/or weight based d osing when appropriate to reduce radiation dose to as low as reasonably achievable (ALARA). [facility]: Dose Right [facility]: CareDose [facility]: Dose Right [facility]: Teradose 4D [facility]: Smart [employer] RADIATION DOSE: Up-to-date CT equipment and radiation dose reduction techniques were employed. CTDIv ol: 20.7 mGy. DLP: 436 mGy-cm. mGy. LIMITATIONS: None. FINDINGS: ALIGNMENT: Somewhat accentuated lordotic curvature. MINERALIZATION: Normal. VERTEBRAL BODIES: No fractures or dislocation. DISCS: Multilevel disc space narrowing with osteophytes. FACETS, LATERAL MASSES, POSTERIOR ELEMENTS: Facet arthropathy. No fractures. No dislocation. No ac port lions findings. HARDWARE: None in the spine. VISUALIZED RIBS: No fractures. LUNG APICES AND SOFT TISSUES: No significant or acute findings. OTHER: No other significant finding. IMPRESSION: CHRONIC DEGENERATIVE CHANGES. NO ACUTE FINDINGS. TECHNICAL DOCUMENTATION: JOB ID: [id number] Quality ID # [id number]: Final reports with documentation of one or more dose reduction techniques (e.g., Au tomated exposure control, adjustment of the mA and/or kV according to patient size, use of iterative reconstruction technique) 2010 [employer]- All Rights Reserved
[2017-05-19 00:25] VITALS: BP 168/52
== END 2017-05-19 00:24 | disposition home or self-care (01) ==
LOC: ER 22:06
DX: S09.90XA Unspecified injury of head, initial encounter (principal); F03.90 Unspecified dementia, unspecified severity, without behavioral disturbance, psychotic disturbance, mood disturbance, and anxiety; W19.XXXA Unspecified fall, initial encounter
CPT/HCPCS: 70450; 72125; 99284

== ENCOUNTER → 2017-08-13 | Outpatient (CLI) | payer MEDICARE, OTHER ==
[2017-08-13 16:14] LABS: ABSOLUTE EOSINOPHILS # (AUTO) 0.1 10^3/uL (0.0-0.6); ABSOLUTE LYMPHOCYTES (AUTO) 1.4 10^3/uL (0.5-4.7); ABSOLUTE MONOCYTES (AUTO) 0.7 10^3/uL (0.1-1.4); ABSOLUTE NEUT (AUTO) 5.2 10^3/uL (1.7-8.2); BASOPHILS % (AUTO) 0.5 % (0-2); EOSINOPHILS % (AUTO) 1.6 % (0-6); HEMATOCRIT 46.3 % (37.9-51.0); HEMOGLOBIN 16.1 g/dL (13.5-17.0); LYMPHOCYTES % (AUTO) 18.4 % (13-45); MEAN CORPUSCULAR HEMOGLOBIN 30.2 pg (27.0-33.4); MEAN CORPUSCULAR HGB CONC 34.8 g/dL (32.0-36.0); MEAN CORPUSCULAR VOLUME 87 fl (80-97); MONOCYTES % (AUTO) 9.2 % (3-13); PLATELET COUNT 265 10^3/uL (150-450); RED BLOOD COUNT 5.34 10^6/uL (4.35-5.55); RED CELL DISTRIBUTION WIDTH 13.2 % (11.5-14.0); SEGMENTED NEUTROPHILS % (AUTO) 70.3 % (42-78); TOTAL CELLS COUNTED % (AUTO) 100 %; WHITE BLOOD COUNT 7.4 10^3/uL (4.0-10.5)
[2017-08-13 16:39] LABS: ALANINE AMINOTRANSFERASE 30 U/L (21-72); ALBUMIN 4.8 g/dL (3.5-5.0); ALKALINE PHOSPHATASE 135 U/L (38-126); ANION GAP 11 (5-19); ASPARTATE AMINO TRANSFERASE 37 U/L (17-59); BILIRUBIN,DIRECT 0.3 mg/dL (0.0-0.4); BILIRUBIN,TOTAL 0.8 mg/dL (0.2-1.3); BLOOD UREA NITROGEN 18 mg/dL (7-20); CALCIUM 9.9 mg/dL (8.4-10.2); CARBON DIOXIDE 25 mmol/L (22-30); CHLORIDE 98 mmol/L (98-107); CHOLESTEROL 185.66 mg/dL (0-200); GLUCOSE 128 mg/dL (75-110); POTASSIUM 4.5 mmol/L (3.6-5.0); SODIUM 133.8 mmol/L (137-145); TOTAL PROTEIN 7.5 g/dL (6.3-8.2); TRIGLYCERIDES 81 mg/dL (<150)
[2017-08-13 16:50] LABS: DIRECT LDL 93 mg/dL (<100)
== END ==
LOC: OD 14:56
PROVIDERS: ATTEND Family Medicine
DX: I10 Essential (primary) hypertension (principal); E08.69 Diabetes mellitus due to underlying condition with other specified complication; E78.5 Hyperlipidemia, unspecified
CPT/HCPCS: 36415; 80053; 80061; 83036; 85025

== ENCOUNTER → 2018-01-08 | Outpatient (CLI) | payer MEDICARE, OTHER | LOC: HHS 10:04 | DX: Z12.83 Encounter for screening for malignant neoplasm of skin (principal) ==

== ENCOUNTER 2018-01-31 19:19 | Emergency (ER) | payer MEDICARE, OTHER ==
--- NOTE | 2018-01-31 19:47 | ER Document Report ---
ED General - General Chief Complaint: Fall Stated Complaint: FALL Time Seen by Provider: 01/31/18 19:46 Cannot obtain history due to: Dementia Notes: Patient is an 87-year-old male who presents after slipping and falling apparently on his own urine shortly prior to arrival. He apparently fell backwards striking the right side of his head as well as his nose and he apparently also sustained an abrasion on his right elbow as well as his left hand. This did occur just prior to arrival. The patient has been able to walk since that time. Due to his profound dementia he is unable to provide any additional meaningful history. TRAVEL OUTSIDE OF THE [place] IN LAST 30 DAYS: No - Related Data Allergies/Adverse Reactions: alprazolam [From Xanax] Allergy (Verified 02/24/17 08:53) brinzolamide [From Azopt] Allergy (Verified 02/24/17 08:53) levofloxacin [From Levaquin] Allergy (Verified 02/24/17 08:53) Sulfa (Sulfonamide Antibiotics) Allergy (Verified 02/24/17 08:53) grapes Allergy (Uncoded 02/24/17 08:53) peaches Allergy (Uncoded 02/24/17 08:53) Past Medical History - General Information source: Relative - Social History Smoking Status: Never Smoker Chew tobacco use (# tins/day): No Frequency of alcohol use: None Drug Abuse: None Lives with: Family Family History: Reviewed & Not Pertinent Patient has suicidal ideation: No Patient has homicidal ideation: No - Past Medical History Cardiac Medical History: Reports: Hx Hypertension Neurological Medical History: Reports: Hx Cerebrovascular Accident Endocrine Medical History: Reports: Hx Diabetes Mellitus Type 2 - oral Renal/ Medical History: Denies: Hx Peritoneal Dialysis GI Medical History: Reports: Hx Gastroesophageal Reflux Disease Psychiatric Medical History: Reports: Hx Dementia Past Surgical History: Reports: Hx Abdominal Surgery - SBO, Hx Orthopedic Surgery - Immunizations Hx Diphtheria, Pertussis, Tetanus Vaccination: Yes Review of Systems - Review of Systems Notes: Constitutional: Negative for fever. Eyes: Negative for visual changes. ENT: Negative for facial injury Cardiovascular: Negative for chest injury. Respiratory: Negative for shortness of breath. Gastrointestinal: Negative for abdominal injury. Genitourinary: Negative for genital injury Musculoskeletal: Negative for back injury. Skin: Positive for laceration/abrasions. Neurological: Positive for head injury. Physical Exam - Vital signs Vitals: Temp Pulse Resp BP Pulse Ox 97.9 F 57 L 18 131/57 H 96 01/31/18 19:29 01/31/18 19:29 01/31/18 19:29 01/31/18 19:29 01/31/18 19:29 Interpretation: Bradycardic Notes: PHYSICAL EXAMINATION: GENERAL: Somewhat frail, elderly, in no acute distress HEAD: Atraumatic, normocephalic. EYES: Pupils equal round and reactive to light, extraocular movements intact, sclera anicteric, conjunctiva are normal. ENT: nares patent, no oral pharyngeal trauma. No hemotympanum, no Gilbert's sign , no raccoon eyes. NECK: No midline cervical spine tenderness. Patient able to move their head to 45 bilaterally without any discomfort. LUNGS: Breath sounds clear to auscultation bilaterally and equal. No wheezes rales or rhonchi. HEART: Regular rate and rhythm without murmurs. CHEST WALL: No ecchymosis over the chest wall. ABDOMEN: Soft, nontender, normoactive bowel sounds. No guarding, no rebound. No abdominal bruising EXTREMITIES: Normal range of motion, no pitting or edema. No long bone deformities. BACK: No midline spinal tenderness, step-offs, or deformities. NEUROLOGICAL: Face symmetric. Tongue protrudes midline. Extraocular motions intact. Pupils are 2 mm and equally reactive. Normal speech, 5 out of 5 strength in both the distal and proximal upper and lower extremities bilaterally. Sensation is grossly intact throughout. PSYCH: Normal mood, normal affect. SKIN: Warm, Dry, normal turgor, there is a skin avulsion to the thenar eminence of the left hand as well as several skin abrasions over the medial epicondyle on the right Course - Re-evaluation Re-evalutation: 01/31/18 19:47 Presentation of a well appearing elderly patient in no acute distress, vitals within normal limits after a mechanical fall. Patient denies a syncopal episode as the cause for today's fall. No focal neurologic deficits on exam, no evidence of basilar skull fracture on exam without evidence of hemotympanum, raccoon eyes, or periauricular hematoma. No papilledema. Patient is not on anticoagulation. GCS is 15. No loss of consciousness. No episodes of vomiting. However, based on patient's age a CT of the head has been obtained which is negative for any acute intracranial bleed. Likewise, patient was unable to be clinically cleared due to age by Gentry cervical spine criteria. A CT of the cervical spine was also obtained and likewise is negative for any acute fracture. No indication for further imaging of the cervical spine. Patient has no focal deformities or limited range of motion in any joint space. Chest and abdominal exam are benign without any focal tenderness, shortness of breath, or bruising over the chest or abdominal wall. Patient has no flank tenderness. There is no obvious findings on trauma exam today and therefore no further imaging or evaluation will be obtained at this time. At this time will discharge with return precautions and follow-up recommendations. Verbal discharge instructions given a the bedside and opportunity for questions given. Medication warnings reviewed. Patient is in agreement with this plan and has verbalized understanding of return precautions and the need for primary care follow-up in the next 24-72 hours. - Vital Signs Vital signs: Temp Pulse Resp BP Pulse Ox 97.5 F 61 18 146/55 H 97 01/31/18 21:34 01/31/18 21:34 01/31/18 21:34 01/31/18 21:34 01/31/18 21:34 - Diagnostic Test Radiology reviewed: Image reviewed, Reports reviewed Radiology results interpreted by me: 01/31/18 20:27 CT head: No acute intracranial bleed or mass Discharge - Discharge Clinical Impression: Skin abrasion Fall Qualifiers: Encounter type: initial encounter Qualified Code(s): W19.XXXA - Unspecified fall, initial encounter Injury of left hand Qualifiers: Encounter type: initial encounter Qualified Code(s): S69.92XA - Unspecified injury of left wrist, hand and finger(s), initial encounter Head injury Qualifiers: Encounter type: initial encounter Qualified Code(s): S09.90XA - Unspecified injury of head, initial encounter Dementia Qualifiers: Dementia type: unspecified type Dementia behavioral disturbance: with behavioral disturbance Qualified Code(s): F03.91 - Unspecified dementia with behavioral disturbance Condition: Stable Disposition: HOME, SELF-CARE Additional Instructions: You have been seen in the Emergency Department (ED) today following a fall. Your workup today did not reveal any injuries that require you to stay in the hospital. You can expect, though, to be stiff and sore for the next several days. You can take Tylenol 1000 mg every 6 hours as needed for pain. You can apply a hot pack or electric heating pad to the sore areas. You can also use topical "Aspercreme with lidocaine" to sore areas as needed. The areas of skin avulsion on your left hand and right elbow do not require sutures but should be dressed regularly. Return immediately if you develop spreading redness around the wound, pus from the wound, worsening pain, or a fever of >100.4. Keep the area clean and dry. Wash gently with soap and water twice daily and cover with antibiotic ointment. Please follow up with your primary care doctor as soon as possible regarding today's ED visit and your recent accident. Call your doctor or return to the ED if you develop a sudden or severe headache , confusion, slurred speech, facial droop, weakness or numbness in any arm or leg, extreme fatigue, vomiting more than two times, severe abdominal pain, or other symptoms that concern you. Referrals: VIRI HERNANDEZ MD [Primary Care Provider] - Follow up in 3-5 days
--- NOTE | 2018-01-31 20:05 | RADIOLOGY REPORT (SQ) ---
EXAM DESCRIPTION: CT HEAD WITHOUT COMPLETED DATE/TIME: 01/31/2018 7:55 pm REASON FOR STUDY: fall COMPARISON: 05/18/2017 TECHNIQUE: Axial images acquired through the brain without intravenous contrast. Images reviewed wi th bone, brain and subdural windows. Images stored on PACS. All CT scanners at this facility use dose modulation, iterative reconstruction, and/or weight based d osing when appropriate to reduce radiation dose to as low as reasonably achievable (ALARA). [facility]: Dose Right [facility]: CareDose [facility]: Dose Right [facility]: Teradose 4D [facility]: Smart Tipser RADIATION DOSE: CT Rad equipment meets quality standard of care and radiation dose reduction techniq ues were employed. CTDIvol: 53.2 mGy. DLP: 937 mGy-cm. mGy. LIMITATIONS: None. FINDINGS: VENTRICLES: Age-appropriate. CEREBRUM: No masses. No hemorrhage. No midline shift. Areas of low density in the white matter mos t likely due to chronic micro-vascular ischemic change. No evidence for acute infarction. CEREBELLUM: No masses. No hemorrhage. No alteration of density. No evidence for acute infarction. EXTRAAXIAL SPACES: Mild age-related involutional change. No fluid collections. No masses. ORBITS AND GLOBE: No intra- or extraconal masses. Normal contour of globe without masses. CALVARIUM: No fracture. PARANASAL SINUSES: No fluid or mucosal thickening. SOFT TISSUES: No mass or hematoma. OTHER: Tiny left mastoid effusion. IMPRESSION: No acute intracranial findings. EVIDENCE OF ACUTE STROKE: NO. TECHNICAL DOCUMENTATION: JOB ID: [id number] [place]-72 Quality ID # 436: Final reports with documentation of one or more dose reduction techniques (e.g., Au tomated exposure control, adjustment of the mA and/or kV according to patient size, use of iterative reconstruction technique) 2010 [employer]- All Rights Reserved Reading location - IP/workstation name: [email or web address]
--- NOTE | 2018-01-31 20:08 | RADIOLOGY REPORT (SQ) ---
EXAM DESCRIPTION: CT CERVICAL SPINE WITHOUT COMPLETED DATE/TIME: 01/31/2018 7:55 pm REASON FOR STUDY: fall COMPARISON: 05/18/2017 TECHNIQUE: Axial images acquired through the cervical spine without intravenous contrast. Images re viewed with lung, soft tissue and bone windows. Reconstructed coronal and sagittal MPR images review ed. Images stored on PACS. All CT scanners at this facility use dose modulation, iterative reconstruction, and/or weight based d osing when appropriate to reduce radiation dose to as low as reasonably achievable (ALARA). [facility]: Dose Right [facility]: CareDose [facility]: Dose Right [facility]: Teradose 4D [facility]: Smart Technologies RADIATION DOSE: CT Rad equipment meets quality standard of care and radiation dose reduction techniq ues were employed. CTDIvol: 15.3 mGy. DLP: 313 mGy-cm. mGy. LIMITATIONS: None. FINDINGS: ALIGNMENT: Anatomic. MINERALIZATION: Normal. VERTEBRAL BODIES: No fractures or dislocation. DISCS: Multilevel disc space narrowing with osteophytes. FACETS, LATERAL MASSES, POSTERIOR ELEMENTS: Facet arthropathy. No fractures. No dislocation. No ac [place] findings. HARDWARE: None in the spine. VISUALIZED RIBS: No fractures. LUNG APICES AND SOFT TISSUES: No significant or acute findings. OTHER: No other significant finding. IMPRESSION: CHRONIC DEGENERATIVE CHANGES. NO ACUTE FINDINGS. TECHNICAL DOCUMENTATION: JOB ID: [id number] [place]-72 Quality ID # [id number]: Final reports with documentation of one or more dose reduction techniques (e.g., Au tomated exposure control, adjustment of the mA and/or kV according to patient size, use of iterative reconstruction technique) 2010 [employer]- All Rights Reserved Reading location - IP/workstation name: [email or web address]
[2018-01-31 21:35] VITALS: BP 146/55
== END 2018-01-31 21:33 | disposition home or self-care (01) ==
LOC: ER 19:19
DX: S61.402A Unspecified open wound of left hand, initial encounter (principal); S50.311A Abrasion of right elbow, initial encounter; S09.90XA Unspecified injury of head, initial encounter; W01.0XXA Fall on same level from slipping, tripping and stumbling without subsequent striking against object, initial encounter; Y92.009 Unspecified place in unspecified non-institutional (private) residence as the place of occurrence of the external cause; F03.90 Unspecified dementia, unspecified severity, without behavioral disturbance, psychotic disturbance, mood disturbance, and anxiety; I10 Essential (primary) hypertension; E11.9 Type 2 diabetes mellitus without complications; Z88.8 Allergy status to other drugs, medicaments and biological substances; Z88.1 Allergy status to other antibiotic agents; Z88.2 Allergy status to sulfonamides; Z91.018 Allergy to other foods
CPT/HCPCS: 70450; 72125; 99284

== ENCOUNTER → 2018-07-14 | Outpatient (CLI) | payer MEDICARE, OTHER ==
[2018-07-14 17:50] LABS: ABSOLUTE EOSINOPHILS # (AUTO) 0.1 10^3/uL (0.0-0.6); ABSOLUTE LYMPHOCYTES (AUTO) 1.4 10^3/uL (0.5-4.7); ABSOLUTE MONOCYTES (AUTO) 0.8 10^3/uL (0.1-1.4); ABSOLUTE NEUT (AUTO) 5.3 10^3/uL (1.7-8.2); BASOPHILS % (AUTO) 0.6 % (0-2); EOSINOPHILS % (AUTO) 1.4 % (0-6); HEMATOCRIT 41.2 % (37.9-51.0); HEMOGLOBIN 14.6 g/dL (13.5-17.0); MEAN CORPUSCULAR HEMOGLOBIN 30.2 pg (27.0-33.4); MEAN CORPUSCULAR HGB CONC 35.5 g/dL (32.0-36.0); MEAN CORPUSCULAR VOLUME 85 fl (80-97); MONOCYTES % (AUTO) 10.7 % (3-13); PLATELET COUNT 276 10^3/uL (150-450); RED BLOOD COUNT 4.86 10^6/uL (4.35-5.55); RED CELL DISTRIBUTION WIDTH 13.8 % (11.5-14.0); SEGMENTED NEUTROPHILS % (AUTO) 69.3 % (42-78); TOTAL CELLS COUNTED % (AUTO) 100 %; WHITE BLOOD COUNT 7.7 10^3/uL (4.0-10.5)
[2018-07-14 18:13] LABS: ALANINE AMINOTRANSFERASE 21 U/L (21-72); ALBUMIN 3.9 g/dL (3.5-5.0); ALKALINE PHOSPHATASE 131 U/L (38-126); ANION GAP 7 (5-19); ASPARTATE AMINO TRANSFERASE 31 U/L (17-59); BILIRUBIN,DIRECT 0.1 mg/dL (0.0-0.4); BILIRUBIN,TOTAL 0.7 mg/dL (0.2-1.3); BLOOD UREA NITROGEN 24 mg/dL (7-20); CALCIUM 9.1 mg/dL (8.4-10.2); CARBON DIOXIDE 26 mmol/L (22-30); CHLORIDE 96 mmol/L (98-107); CHOLESTEROL 165.08 mg/dL (0-200); GLUCOSE 162 mg/dL (75-110); POTASSIUM 4.8 mmol/L (3.6-5.0); SODIUM 129.1 mmol/L (137-145); TOTAL PROTEIN 6.4 g/dL (6.3-8.2); TRIGLYCERIDES 60 mg/dL (<150)
[2018-07-14 18:24] LABS: DIRECT LDL 92 mg/dL (<100)
== END ==
LOC: OD 16:24
PROVIDERS: ATTEND Family Medicine
DX: I10 Essential (primary) hypertension (principal); E08.69 Diabetes mellitus due to underlying condition with other specified complication; N39.0 Urinary tract infection, site not specified; N40.1 Benign prostatic hyperplasia with lower urinary tract symptoms; E78.5 Hyperlipidemia, unspecified
CPT/HCPCS: 36415; 80053; 80061; 83036; 85025; 87086

== ENCOUNTER → 2018-09-02 | Outpatient (CLI) | payer MEDICARE, OTHER ==
[2018-09-02 18:10] LABS: ANION GAP 11 (5-19); BLOOD UREA NITROGEN 26 mg/dL (7-20); CARBON DIOXIDE 24 mmol/L (22-30); CHLORIDE 96 mmol/L (98-107); GLUCOSE 189 mg/dL (75-110); POTASSIUM 4.8 mmol/L (3.6-5.0); SODIUM 130.7 mmol/L (137-145)
== END ==
LOC: OD 15:47
PROVIDERS: ATTEND Family Medicine
DX: I10 Essential (primary) hypertension (principal)
CPT/HCPCS: 36415; 80048

== ENCOUNTER 2019-03-09 03:06 | Emergency (ER) | payer MEDICARE, OTHER ==
[2019-03-09 06:15] LABS: ALBUMIN 3.8 g/dL (3.5-5.0); ALKALINE PHOSPHATASE 146 U/L (38-126); ANION GAP 11 (5-19); ASPARTATE AMINO TRANSFERASE 38 U/L (17-59); BILIRUBIN,DIRECT 0.4 mg/dL (0.0-0.4); BILIRUBIN,TOTAL 0.7 mg/dL (0.2-1.3); BLOOD UREA NITROGEN 26 mg/dL (7-20); CALCIUM 8.8 mg/dL (8.4-10.2); CARBON DIOXIDE 26 mmol/L (22-30); CHLORIDE 95 mmol/L (98-107); GLUCOSE 243 mg/dL (75-110); TOTAL PROTEIN 6.8 g/dL (6.3-8.2)
[2019-03-09] MEDS ORDERED: NORMAL SALINE 1000 ML 1,000 ML IV ONE (06:41)
--- NOTE | 2019-03-09 07:12 | ER Document Report ---
ED Dizziness/Weakness - General Chief Complaint: General Weakness Stated Complaint: WEAKNESS Time Seen by Provider: 03/09/19 06:07 Primary Care Provider: VIRI HERNANDEZ MD [Primary Care Provider] - Follow up as needed Notes: 89-year-old male was brought in for generalized weakness and rechecking labs. The patient was admitted at [facility] last week for hyponatremia. The patient was discharged home and he is is been generalized weak since before the admission. The patient's spouse fell and the son brought both of them since there is no other caregivers and decided to sign the patient in just to have his labs rechecked. The patient had no falls no trauma has a history of chronic vertigo. Son asked for his vertigo medicine this morning. There is been no extremity numbness tingling or weakness son is translating. No fever no chills no nausea no vomiting. TRAVEL OUTSIDE OF THE [place] IN LAST 30 DAYS: No - Related Data Allergies/Adverse Reactions: alprazolam [From Xanax] Allergy (Verified 02/24/17 08:53) brinzolamide [From Azopt] Allergy (Verified 02/24/17 08:53) levofloxacin [From Levaquin] Allergy (Verified 02/24/17 08:53) Sulfa (Sulfonamide Antibiotics) Allergy (Verified 02/24/17 08:53) grapes Allergy (Uncoded 02/24/17 08:53) peaches Allergy (Uncoded 02/24/17 08:53) Past Medical History - Social History Smoking Status: Never Smoker Family History: Reviewed & Not Pertinent Patient has suicidal ideation: No Patient has homicidal ideation: No - Past Medical History Cardiac Medical History: Reports: Hx Hypertension Neurological Medical History: Reports: Hx Cerebrovascular Accident Endocrine Medical History: Reports: Hx Diabetes Mellitus Type 2 - oral Renal/ Medical History: Denies: Hx Peritoneal Dialysis GI Medical History: Reports: Hx Gastroesophageal Reflux Disease Psychiatric Medical History: Reports: Hx Dementia Past Surgical History: Reports: Hx Abdominal Surgery - SBO, Hx Orthopedic Surgery - Immunizations Hx Diphtheria, Pertussis, Tetanus Vaccination: Yes Review of Systems - Review of Systems Constitutional: denies: Chills, Fever Respiratory: denies: Short of breath Gastrointestinal: denies: Abdominal pain, Nausea, Vomiting, Black stools Genitourinary: denies: Dysuria, Hematuria Musculoskeletal: denies: Back pain Neurological/Psychological: denies: Headaches, Numbness -: Yes All other systems reviewed and negative Physical Exam - Vital signs Vitals: Temp Resp BP 98.3 F 16 147/88 H 03/09/19 03:32 03/09/19 03:32 03/09/19 03:32 - Notes Notes: GENERAL_APPEARANCE: well_nourished, alert, cooperative, no_acute_distress, no_obvious_discomfort. VITALS: reviewed, see vital signs table. HEAD: no_swelling\tenderness on the head. EYES: PERRL, EOMI, conjunctiva_clear. NOSE: no_nasal_discharge. MOUTH: Slight decreased moisture. THROAT: no_tonsilar_inflammation, no_airway_obstruction. no_lymphadenopathy NECK: supple, no_neck_tenderness, (-)thyromegaly. BACK: no_back_tenderness. CHEST_WALL: no_chest_tenderness. LUNGS: no_wheezing, no_rales, no_rhonchi, (-)accessory muscle use, good air exchange bilateral. HEART: normal_rate, normal_rhythm, normal_S1, normal_S2, (-)S3, (-)S4, no_murmur, no_rub. ABDOMEN: soft, no_abd_tenderness, (-)guarding, (-)rebound, no_organomegaly, no_abd_masses. EXTREMITIES: good pulses in all_extremities, no_swelling\tenderness in the extremities, no_edema. SKIN: warm, dry, good_color, no_rash. MENTAL_STATUS: speech_clear, oriented_person but not place or time, normal_affect, responds_appropriately to questions. NEURO: Neg Motor or Sensory Deficits on exam, CN 2-12 intact, DTR 2+ symmetric x 4, No cerbellar signs Course - Re-evaluation Re-evalutation: 03/09/19 07:12 89-year-old male was brought in for reevaluation and weakness. The weakness is unchanged since before his admission to [facility]. Patient has dementia chronic vertigo. I gave him a dose of his meclizine as requested by his son we will give him a liter of IV fluids. We will check some generalized labs we will recheck his sodium. Son states it was down below 125. Also a liter of IV saline will help. Patient has no unilateral focal motor or sensory deficits. It is of note that the was signed and and the son signed the patient and is more of a convenience to get his labs rechecked. 03/09/19 09:52 Sodium is much improved. There is no signs of any infection no UTI. Work appears fairly unrevealing looking back at all his labs this is fairly baseline for the patient. Wilfred at social work will talk to the son about resources - Vital Signs Vital signs: Temp Pulse Resp BP Pulse Ox 98.3 F 75 18 158/73 H 100 03/09/19 07:14 03/09/19 07:14 03/09/19 07:14 03/09/19 07:14 03/09/19 07:14 - Laboratory Result Diagrams: 03/09/19 07:49 03/09/19 05:50 Laboratory results interpreted by me: 03/09/19 03/09/19 03/09/19 05:50 07:15 07:49 Monocytes % 13.9 H Sodium 131.7 L Chloride 95 L BUN 26 H Creatinine 1.40 H Est GFR ( Amer) 58 L Est GFR (Non-Af Amer) 48 L Glucose 243 H Alkaline Phosphatase 146 H Urine Protein 30 H Urine Glucose (UA) >=500 H Urine Blood MODERATE H Urine Urobilinogen 2.0 H - Diagnostic Test Radiology reviewed: Reports reviewed Radiology results interpreted by me: 03/09/19 09:52 Chest X-Ray 03/09/19 07:32 IMPRESSION: NO ACUTE RADIOGRAPHIC FINDING IN THE CHEST. Discharge - Discharge Clinical Impression: Hyponatremia Condition: Good Disposition: HOME, SELF-CARE Instructions: Hyponatremia ([facility]) Referrals: VIRI HERNANDEZ MD [Primary Care Provider] - Follow up as needed
[2019-03-09 07:34] LABS: APPEARANCE,URINE CLEAR; BILIRUBIN,URINE NEGATIVE (NEGATIVE); COLOR,URINE YELLOW; GLUCOSE, URINE >=500 mg/dL (NEGATIVE); KETONES,URINE NEGATIVE (NEGATIVE); LEUKOCYTE ESTERASE,URINE NEGATIVE (NEGATIVE); NITRITE,URINE NEGATIVE (NEGATIVE); PROTEIN,URINE 30 mg/dL (NEGATIVE); URINE SPECIFIC GRAVITY 1.015
[2019-03-09 08:16] LABS: ABSOLUTE EOSINOPHILS # (AUTO) 0.1 10^3/uL (0.0-0.6); ABSOLUTE LYMPHOCYTES (AUTO) 1.5 10^3/uL (0.5-4.7); ABSOLUTE MONOCYTES (AUTO) 0.9 10^3/uL (0.1-1.4); ABSOLUTE NEUT (AUTO) 3.8 10^3/uL (1.7-8.2); BASOPHILS % (AUTO) 0.5 % (0-2); EOSINOPHILS % (AUTO) 1.7 % (0-6); HEMATOCRIT 41.3 % (37.9-51.0); HEMOGLOBIN 14.5 g/dL (13.5-17.0); LYMPHOCYTES % (AUTO) 24.4 % (13-45); MEAN CORPUSCULAR HEMOGLOBIN 29.5 pg (27.0-33.4); MEAN CORPUSCULAR VOLUME 84 fl (80-97); MONOCYTES % (AUTO) 13.9 % (3-13); PLATELET COUNT 273 10^3/uL (150-450); RED CELL DISTRIBUTION WIDTH 13.6 % (11.5-14.0); SEGMENTED NEUTROPHILS % (AUTO) 59.5 % (42-78); TOTAL CELLS COUNTED % (AUTO) 100 %; WHITE BLOOD COUNT 6.4 10^3/uL (4.0-10.5)
--- NOTE | 2019-03-09 08:28 | RADIOLOGY REPORT (SQ) ---
EXAM DESCRIPTION: CHEST SINGLE VIEW COMPLETED DATE/TIME: 03/09/2019 8:10 am REASON FOR STUDY: weakness COMPARISON: 06/14/2016 EXAM PARAMETERS: NUMBER OF VIEWS: One view. TECHNIQUE: Single frontal radiographic view of the chest acquired. RADIATION DOSE: NA LIMITATIONS: None. FINDINGS: LUNGS AND PLEURA: No opacities, masses or pneumothorax. No pleural effusion. MEDIASTINUM AND HILAR STRUCTURES: No masses. Contour normal. HEART AND VASCULAR STRUCTURES: Heart normal in size. Normal vasculature. BONES: No acute findings. HARDWARE: None in the chest. OTHER: No other significant finding. IMPRESSION: NO ACUTE RADIOGRAPHIC FINDING IN THE CHEST. TECHNICAL DOCUMENTATION: JOB ID: [id number] [employer]- All Rights Reserved Reading location - IP/workstation name: [email or web address]
[2019-03-09 10:23] VITALS: BP 155/57
== END 2019-03-09 11:04 | disposition home or self-care (01) ==
LOC: ER 03:06
DX: E87.1 Hypo-osmolality and hyponatremia (principal); R53.1 Weakness; R42 Dizziness and giddiness; I10 Essential (primary) hypertension; E11.9 Type 2 diabetes mellitus without complications; Z88.2 Allergy status to sulfonamides; Z88.3 Allergy status to other anti-infective agents; Z86.73 Personal history of transient ischemic attack (TIA), and cerebral infarction without residual deficits; Z79.84 Long term (current) use of oral hypoglycemic drugs
CPT/HCPCS: 36415; 85025; 80053; 81001; 71045; J7030; 96360; 96361; 99283

== ENCOUNTER 2019-06-04 15:16 | Emergency (ER) | payer MEDICARE ==
[2019-06-04 17:13] LABS: ABSOLUTE EOSINOPHILS # (AUTO) 0.1 10^3/uL (0.0-0.6); ABSOLUTE LYMPHOCYTES (AUTO) 1.6 10^3/uL (0.5-4.7); ABSOLUTE MONOCYTES (AUTO) 0.9 10^3/uL (0.1-1.4); ABSOLUTE NEUT (AUTO) 4.7 10^3/uL (1.7-8.2); BASOPHILS % (AUTO) 0.6 % (0-2); EOSINOPHILS % (AUTO) 1.7 % (0-6); HEMATOCRIT 43.6 % (37.9-51.0); HEMOGLOBIN 15.1 g/dL (13.5-17.0); LYMPHOCYTES % (AUTO) 22.3 % (13-45); MEAN CORPUSCULAR HEMOGLOBIN 29.7 pg (27.0-33.4); MEAN CORPUSCULAR HGB CONC 34.7 g/dL (32.0-36.0); MEAN CORPUSCULAR VOLUME 86 fl (80-97); MONOCYTES % (AUTO) 11.7 % (3-13); PLATELET COUNT 259 10^3/uL (150-450); RED BLOOD COUNT 5.08 10^6/uL (4.35-5.55); RED CELL DISTRIBUTION WIDTH 14.1 % (11.5-14.0); SEGMENTED NEUTROPHILS % (AUTO) 63.7 % (42-78); TOTAL CELLS COUNTED % (AUTO) 100 %; WHITE BLOOD COUNT 7.4 10^3/uL (4.0-10.5)
--- NOTE | 2019-06-04 17:23 | ER Document Report ---
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 Obtaining history is incredibly difficult as the patient's son is also a poor historian. All history is being given by son at bedside. Son states that the patient has been treated for multiple UTIs in the past few months with Keflex which seems to work well for him. Son states the patient's urine is not foul-smelling or cloudy today. Son states that for the last 2 days the patient has had forehead swelling with increasing drowsiness. Son states that the patient's has home health that comes to the house and the home health nurse "freaked out" and told him that the patient "needed to be seen by a doctor". Son adds that the patient has recently been [facility] where he had a head CT performed that showed chronic changes including "Alzheimer's, previous CVAs, and dementia but there was nothing new". Essentially, the son just wants him checked out if there is a correctable issue such as urinary tract infection he would like that taken care of, otherwise he will take him back, realizing that he does have a declining health status that cannot be reversed. He also expressed interest in the patient passing away at home when the time comes rather than being in the hospital. He does report that hydralazine was added to his medications recently for his high blood pressure. His blood pressure here today has been as low as 132/54. I did tell the son that in his quest to normalize his blood pressure, he may be doing harm, and that due to his advanced age and probable cerebrovascular disease, he may be better off with permissive hypertension. He also does run a low serum sodium, and may benefit from increased sodium in his diet, such as tomato juice. The patient is not a TPA candidate. He has advanced dementia, no specific motor deficit, no specific recent change in his overall status. TRAVEL OUTSIDE OF THE [place] IN LAST 30 DAYS: No - Related Data Allergies/Adverse Reactions: alprazolam [From Xanax] Allergy (Verified 02/24/17 08:53) brinzolamide [From Azopt] Allergy (Verified 02/24/17 08:53) levofloxacin [From Levaquin] Allergy (Verified 02/24/17 08:53) Sulfa (Sulfonamide Antibiotics) Allergy (Verified 02/24/17 08:53) grapes Allergy (Uncoded 02/24/17 08:53) peaches Allergy (Uncoded 02/24/17 08:53) Past Medical History - General Information source: Relative, [facility] Records - Social History Smoking Status: Unknown if Ever Smoked Family History: Reviewed & Not Pertinent - Past Medical History Cardiac Medical History: Reports: Hx Hypertension Neurological Medical History: Reports: Hx Cerebrovascular Accident Endocrine Medical History: Reports: Hx Diabetes Mellitus Type 2 - oral GI Medical History: Reports: Hx Gastroesophageal Reflux Disease Psychiatric Medical History: Reports: Hx Dementia Past Surgical History: Reports: Hx Abdominal Surgery - SBO, Hx Orthopedic Surgery - Immunizations Hx Diphtheria, Pertussis, Tetanus Vaccination: Yes Review of Systems - Review of Systems -: Yes ROS unobtainable due to patient's medical condition Physical Exam - Vital signs Vitals: Pulse Ox 100 06/04/19 15:18 - Notes Notes: Physical Exam: General: Blind, deaf out of right hear, 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 Responds to noxious stimuli. HEENT: Normocephalic. Atraumatic. Oropharynx clear. Neck: Supple. Non-tender. Respiratory: No respiratory distress. Clear and equal breath sounds bilaterally. Cardiovascular: Regular rate and rhythm. Abdominal: Normal Inspection. Non-tender. No distension. Normal Bowel Sounds. Genitourinary: Condom catheter in place. Back: No gross abnormalities. Extremities: Moves all four extremities. Upper extremities: Normal inspection. Normal ROM. Lower extremities: Normal inspection. No edema. Normal ROM. Skin: 3cm x 3cm area of erythema to the left forearm with a small central hole in the skin consistent with recent placement of IV. This area has skin changes consistent with a dressing that had been placed too tightly for several days. Course - Vital Signs Vital signs: Temp Pulse Resp BP Pulse Ox 98.1 F 56 L 14 132/54 H 100 1107/19 15:30 06/04/19 16:11 06/04/19 16:11 06/04/19 16:11 06/04/19 16:11 - Laboratory Result Diagrams: 06/04/19 16:50 06/04/19 16:50 Laboratory results interpreted by me: 06/04/19 06/04/19 06/04/19 16:50 16:50 16:50 RDW 14.1 H Sodium 128.0 L Chloride 94 L BUN 22 H Glucose 116 H Magnesium 2.4 H Alkaline Phosphatase 153 H Urine Blood SMALL H Discharge - Discharge Clinical Impression: Hyponatremia Dementia Qualifiers: Dementia type: Alzheimer's disease Alzheimer's disease onset: late-onset D ementia behavioral disturbance: without behavioral disturbance Qualified Co de(s): G30.1 - Alzheimer's disease with late onset Condition: Stable Disposition: HOME, SELF-CARE Additional Instructions: The patient's blood work and urine do not show signs of infection. The serum sodium is a little low at 128. Increasing sodium in the diet such as giving tomato juice will help raise the se rum sodium level. Follow-up with Dr. Hernandez Saturday to discuss an optimal blood pressure and to recheck the sodium levels. RETURN TO THE EMERGENCY ROOM IF ANY NEW OR WORSENING SYMPTOMS. Referrals: VIRI HERNANDEZ MD [Primary Care Provider] - Follow up in 3-5 days Scribe Attestation: 06/04/19 17:23 I personally performed the services described in the documentation, reviewed and edited the documentation which was dictated to the scribe in my presence, and it accurately records my words and actions. I personally performed the services described in the documentation, reviewed and edited the documentation which was dictated to the scribe in my presence, and it accurately records my words and actions.
[2019-06-04 17:30] LABS: ALBUMIN 3.9 g/dL (3.5-5.0); ALKALINE PHOSPHATASE 153 U/L (38-126); ANION GAP 8 (5-19); APPEARANCE,URINE CLEAR; ASPARTATE AMINO TRANSFERASE 35 U/L (17-59); BILIRUBIN,DIRECT 0.1 mg/dL (0.0-0.4); BILIRUBIN,TOTAL 0.9 mg/dL (0.2-1.3); BILIRUBIN,URINE NEGATIVE (NEGATIVE); BLOOD UREA NITROGEN 22 mg/dL (7-20); CARBON DIOXIDE 26 mmol/L (22-30); CHLORIDE 94 mmol/L (98-107); COLOR,URINE YELLOW; GLUCOSE 116 mg/dL (75-110); GLUCOSE, URINE NEGATIVE (NEGATIVE); KETONES,URINE NEGATIVE (NEGATIVE); LEUKOCYTE ESTERASE,URINE NEGATIVE (NEGATIVE); NITRITE,URINE NEGATIVE (NEGATIVE); POTASSIUM 4.7 mmol/L (3.6-5.0); PROTEIN,URINE NEGATIVE (NEGATIVE); TOTAL PROTEIN 6.8 g/dL (6.3-8.2); URINE SPECIFIC GRAVITY 1.011; UROBILINOGEN,URINE NEGATIVE mg/dL (<2.0)
[2019-06-04 19:15] VITALS: BP 165/97
--- NOTE | 2019-06-04 22:39 | EKG REPORT ---
SEVERITY:- ABNORMAL ECG - SINUS RHYTHM FIRST DEGREE AV BLOCK : Confirmed by: Nikos Monahan 04-Jun-2019 22:39:22
== END 2019-06-04 19:32 | disposition home or self-care (01) ==
LOC: ER 15:16
DX: E87.1 Hypo-osmolality and hyponatremia (principal); G30.1 Alzheimer's disease with late onset; F02.80 Dementia in other diseases classified elsewhere, unspecified severity, without behavioral disturbance, psychotic disturbance, mood disturbance, and anxiety; I10 Essential (primary) hypertension; E11.9 Type 2 diabetes mellitus without complications; Z87.440 Personal history of urinary (tract) infections; Z86.73 Personal history of transient ischemic attack (TIA), and cerebral infarction without residual deficits; Z88.8 Allergy status to other drugs, medicaments and biological substances; Z88.1 Allergy status to other antibiotic agents; Z88.2 Allergy status to sulfonamides; Z91.018 Allergy to other foods
CPT/HCPCS: 36415; 80053; 81001; 83735; 85025; 93005; 93010; 99283

== ENCOUNTER 2019-10-21 05:00 | Inpatient (IN) | payer MEDICARE ==
[2019-10-21 05:55] LABS: VENOUS BLOOD BASE EXCESS -0.8 mmol/L; VENOUS BLOOD HCO3 24.2 mmol/L (20-32); VENOUS BLOOD PCO2 41.4 mmHg (35-63); VENOUS BLOOD PH 7.39 (7.30-7.42)
[2019-10-21 06:00] LABS: HEMATOCRIT 47.3 % (37.9-51.0); HEMOGLOBIN 16.1 g/dL (13.5-17.0); MEAN CORPUSCULAR HEMOGLOBIN 29.3 pg (27.0-33.4); MEAN CORPUSCULAR HGB CONC 34.1 g/dL (32.0-36.0); MEAN CORPUSCULAR VOLUME 86 fl (80-97); PLATELET COUNT 359 10^3/uL (150-450); RED BLOOD COUNT 5.51 10^6/uL (4.35-5.55); RED CELL DISTRIBUTION WIDTH 14.9 % (11.5-14.0); WHITE BLOOD COUNT 20.6 10^3/uL (4.0-10.5)
--- NOTE | 2019-10-21 06:00 | ER Document Report ---
ED General - General Chief Complaint: Altered Mental Status Stated Complaint: ALTERED MENTAL STATUS Time Seen by Provider: 10/21/19 05:25 Information source: Relative, Legal Guardian, Emergency Med Personnel Cannot obtain history due to: Dementia Notes: Patient brought in by EMS. History, review of systems and physical examination are limited by dementia. Son who is the legal power of divorce attorney called EMS due to poor appetite and shortness of breath. He requests patient be DNR and I have completed the paperwork for same. He still would like the patient treated just no resuscitation. EMS put the patient on oxygen. His initial O2 saturation was 84%. He had a fever of 103.4 which came down with Tylenol. TRAVEL OUTSIDE OF THE [place] IN LAST 30 DAYS: No - Related Data Allergies/Adverse Reactions: alprazolam [From Xanax] Allergy (Verified 10/21/19 07:21) brinzolamide [From Azopt] Allergy (Verified 10/21/19 07:21) levofloxacin [From Levaquin] Allergy (Verified 10/21/19 07:21) Sulfa (Sulfonamide Antibiotics) Allergy (Verified 10/21/19 07:21) grapes Allergy (Uncoded 10/21/19 07:21) peaches Allergy (Uncoded 10/21/19 07:21) Past Medical History - General Information source: Relative Cannot obtain history due to: Dementia - Social History Smoking Status: Unknown if Ever Smoked Chew tobacco use (# tins/day): No Frequency of alcohol use: None Drug Abuse: None Family History: Reviewed & Not Pertinent Patient has suicidal ideation: No Patient has homicidal ideation: No - Past Medical History Cardiac Medical History: Reports: Hx Hypertension Neurological Medical History: Reports: Hx Cerebrovascular Accident Endocrine Medical History: Reports: Hx Diabetes Mellitus Type 2 - oral Renal/ Medical History: Denies: Hx Peritoneal Dialysis GI Medical History: Reports: Hx Gastroesophageal Reflux Disease Psychiatric Medical History: Reports: Hx Dementia Past Surgical History: Reports: Hx Abdominal Surgery - SBO, Hx Orthopedic Surge ry - Immunizations Hx Diphtheria, Pertussis, Tetanus Vaccination: Yes Review of Systems - Review of Systems -: Yes ROS unobtainable due to patient's medical condition Physical Exam - Vital signs Vitals: Resp BP 28 H 144/71 H 10/21/19 05:14 10/21/19 05:14 Interpretation: Tachypneic - General General appearance: Unresponsive - HEENT Head: Normocephalic Pupils: PERRL Ears: Normal External canal: Normal Nasal: Normal Mouth/Lips: Normal Mucous membranes: Dry Pharynx: Normal. No: Erythema Neck: Normal, Supple - Respiratory Respiratory status: Respiratory distress, Tachypnea Breath sounds: Normal Chest palpation: Normal - Cardiovascular Rhythm: Regular, Tachycardia Murmur: No - Abdominal Inspection: Normal Tenderness: Nontender - Back Back: Normal - Extremities General upper extremity: Normal inspection General lower extremity: Normal inspection - Neurological Cognition: Confused Notes: BASELINE DEMENTIA; MOVES ALL 4 EXTREMITIES - Psychological Associated symptoms: Uncooperative - Skin Skin Temperature: Warm Skin Moisture: Dry Course - Re-evaluation Re-evalutation: 10/21/19 06:02 IV FLUID AND ANTIBIOTICS ORDERED 10/21/19 06:48 CXR PER RADIOLOGIST MILD LEFT LOWER LOBE ATELECTASIS, WITH INCREASE LUNG VOLUMES. LABS REVIEWED. 10/21/19 08:48 LABS REVIEWED. PT STABLE ON OXYGEN. CALL PLACED TO DR. HERNANDEZ FOR ADMISSION. 10/21/19 09:23 DR. HERNANDEZ SAYS THAT PT IS NO LONGER ON HIS SERVICE. WILL CALL HOSPITALIST FOR ADMISSION. 10/21/19 09:[address] SALAZAR, WHO WILL LET DR. MON KNOW ABOUT THE ADMISSION. DISCUSSED CASE IN DETAIL WITH DR. MON, WHO WILL BE DOWN TO SO PT. PT STABLE. 10/21/19 10:03 - Vital Signs Vital signs: Temp Pulse Resp BP Pulse Ox 99.5 F 25 H 142/77 H 100 10/21/19 05:17 10/21/19 07:01 10/21/19 07:01 10/21/19 07:01 - Laboratory Result Diagrams: 10/21/19 05:35 10/21/19 07:34 Laboratory results interpreted by me: 10/21/19 10/21/19 10/21/19 05:35 05:35 07:34 WBC 20.6 H RDW 14.9 H Seg Neuts % (Manual) 88 H Band Neutrophils % 1 L Lymphocytes % (Manual) 5 L Abs Neuts (Manual) 18.3 H PT 15.6 H Carbon Dioxide 18 L BUN 41 H Creatinine 1.64 H Est GFR ( Amer) 48 L Est GFR (MDRD) Non-Af 40 L Glucose 326 H Lactic Acid Calcium 8.2 L Alkaline Phosphatase 142 H Total Protein 6.2 L Albumin 3.3 L 10/21/19 07:34 WBC RDW Seg Neuts % (Manual) Band Neutrophils % Lymphocytes % (Manual) Abs Neuts (Manual) PT Carbon Dioxide BUN Creatinine Est GFR ( Amer) Est GFR (MDRD) Non-Af Glucose Lactic Acid 2.3 H Calcium Alkaline Phosphatase Total Protein Albumin - Diagnostic Test Radiology reviewed: Image reviewed, Reports reviewed - EKG Interpretation by Me EKG shows normal: Sinus rhythm Rate: Tachycardia Additional EKG results interpreted by me: 10/21/19 06:[address] CHANGES Discharge - Discharge Clinical Impression: DNR (do not resuscitate), Hypoxia Dementia Qualifiers: Dementia type: unspecified type Dementia behavioral disturbance: with behavioral disturbance Qualified Code(s): F03.91 - Unspecified dementia with behavioral disturbance Sepsis Qualifiers: Sepsis type: sepsis due to unspecified organism Sepsis acute organ dysfunction status: unspecified Qualified Code(s): A41.9 - Sepsis, unspecified organism Leukocytosis Qualifiers: Leukocytosis type: unspecified Qualified Code(s): D72.829 - Elevated white blood cell count, unspecified Condition: Serious Disposition: ADMITTED INPATIENT Admitting Provider: Nolan (Hospitalist) Unit Admitted: [facility]
[2019-10-21 06:02] LABS: INTERNATIONAL RATION (INR) 1.23; PROTHROMBIN TIME 15.6 SEC (11.4-15.4)
[2019-10-21] MEDS ORDERED: NORMAL SALINE 1000 ML 1,000 ML IV ONE (06:05)
[2019-10-21] MEDS ORDERED: PIPERACILLIN/TAZOBACTAM 3.375 GM VIAL IV ONE ×2 (06:05→09:00)
--- NOTE | 2019-10-21 06:22 | RADIOLOGY REPORT (SQ) ---
EXAM DESCRIPTION: XR CHEST 1 VIEW COMPLETED DATE/TME: 10/21/2019 05:18 CLINICAL HISTORY: 89 years Male, congestion COMPARISON: 10/07/16, 03/09/19 NUMBER OF VIEWS/TECHNIQUE: 1/AP FINDINGS: Increased lung volume, mild interstitial markings of the left lower lobe, normal cardiac silhouette, and intact bony thorax.Atherosclerotic vascular disease. IMPRESSION: Mild interstitial markings. Differential diagnosis includes pulmonary edema, atypical pneumonitis, and chronic interstitial lung disease.
[2019-10-21 06:23] LABS: ABSOLUTE MONOCYTES # (MANUAL) 1.2 10^3/uL (0.1-1.4); BAND NEUTROPHILS % (MANUAL) 1 % (3-5); BASOPHILS % (MANUAL) 0 % (0-2); EOSINOPHILS % (MANUAL) 0 % (0-6); LYMPHOCYTES % (MANUAL) 5 % (13-45); MONOCYTES % (MANUAL) 6 % (3-13); SEGMENTED NEUTROPHILS % (MAN) 88 % (42-78); TOTAL CELLS COUNTED 100
[2019-10-21 06:25] LABS: ANISOCYTOSIS SLIGHT; BURR CELLS SLIGHT; OVALOCYTES SLIGHT; PLATELET COMMENT ADEQUATE; POIKILOCYTOSIS SLIGHT; TOXIC GRANULATION SLIGHT
[2019-10-21 08:09] LABS: ALBUMIN 3.3 g/dL (3.5-5.0); ALKALINE PHOSPHATASE 142 U/L (38-126); ANION GAP 16 (5-19); ASPARTATE AMINO TRANSFERASE 39 U/L (17-59); BILIRUBIN,DIRECT 0.3 mg/dL (0.0-0.4); BILIRUBIN,TOTAL 0.9 mg/dL (0.2-1.3); BLOOD UREA NITROGEN 41 mg/dL (7-20); CALCIUM 8.2 mg/dL (8.4-10.2); CARBON DIOXIDE 18 mmol/L (22-30); CHLORIDE 107 mmol/L (98-107); GLUCOSE 326 mg/dL (75-110); POTASSIUM 4.5 mmol/L (3.6-5.0); TOTAL PROTEIN 6.2 g/dL (6.3-8.2)
[2019-10-21] MEDS ORDERED: DEXTROSE 50%-WATER 25 GM/50 ML DISP.SYRIN IV PRN ×2 (11:09)
[2019-10-21] MEDS ORDERED: ACETAMINOPHEN 325 MG TABLET PO PRN (11:09)
[2019-10-21] MEDS ORDERED: GLUCAGON,HUMAN RECOMB 1 MG INJ SUBCUT PRN (11:09)
[2019-10-21] MEDS ORDERED: DEXTROSE 40% GEL 15 GM TUBE PO PRN ×2 (11:09)
--- NOTE | 2019-10-21 11:15 | EKG REPORT ---
SEVERITY:- ABNORMAL ECG - SINUS TACHYCARDIA BORDERLINE R WAVE PROGRESSION, ANTERIOR LEADS NONSPECIFIC T ABNORMALITIES, DIFFUSE LEADS : Confirmed by: Lobito Lane MD 21-Oct-2019 11:14:50
[2019-10-21] MEDS: POTASSI CL 20 MEQ/1/2NS 1L 20 MEQ/1,000 ML RTUINJ IV PRN (12:54)
[2019-10-21] MEDS: HEPARIN SOD (PORCINE) 5,000 UNIT/ML 1 ML VIAL SUBCUT SCH ×2 (13:16→22:33)
--- NOTE | 2019-10-21 15:22 | PDOC H&P ---
History of Present Illness Admission Date/PCP: 10/21/19 09:55 VIRI HERNANDEZ MD History of Present Illness: MAGUI CABALLERO is a 89 year old male with a history of advanced dementia and so all of the historical data here is obtained from review the medical record or from third-libertarian sources. He allegedly lives at home with his son who is his primary caregiver and his son called EMS because he had a fever couple of days ago and has not been eating for the past 4 to 5 days. He is also apparently less interactive than he has been in previous days. Has not left his house in a long time and has had no visitors. He apparently has had some trouble with aspiration in the past. He does not eat very much normally. He is not had any Tylenol today and was not febrile here or for EMS. They said he was hypoxic initially and had to put him on 10 L of oxygen per nasal cannula but when I got down to the ER I turned his oxygen down to 2 L and he was 94%. Chest x-ray was nonspecific. He did not really interact with me, but he resisted our efforts to turn him over to examine him. He did have a leukocytosis. He is being admitted for further evaluation. His son did not want him resuscitated or intubated but he did want him treated if we could find something. Past Medical History Cardiac Medical History: Reports: Hypertension Endocrine Medical History: Reports: Diabetes Mellitus Type 2 - oral GI Medical History: Reports: Gastroesophageal Reflux Disease Psychiatric Medical History: Reports: Dementia Past Surgical History Past Surgical History: Reports: Orthopedic Surgery Social History Smoking Status: Unknown if Ever Smoked Electronic Cigarette use?: No Frequency of Alcohol Use: None Hx Recreational Drug Use: No Hx Prescription Drug Abuse: No Family History Family History: Reviewed & Not Pertinent Parental Family History Reviewed: No - Unable to obtain Children Family History Reviewed: No - Unable to obtain Sibling(s) Family History Reviewed.: No - Unable to obtain Medication/Allergy Home Medications: Amlodipine Besylate [Norvasc 10 mg Tablet] 5 mg PO BID 10/08/16 Clopidogrel Bisulfate [Plavix 75 mg Tablet] 75 mg PO DAILY 10/08/16 Doxazosin Mesylate [Cardura 1 Mg Tablet] 1 mg PO BID 10/08/16 Famotidine 20 mg PO BID 10/08/16 Donepezil HCl [Aricept 5 mg Tablet] 5 mg PO QHS 10/21/19 Glipizide [Glucotrol 5 mg Tablet] 2.5 mg PO DAILY 10/21/19 Timolol Maleate 1 drop OU BID 10/21/19 Trazodone HCl [Desyrel 50 mg Tablet] 50 mg PO QHS 10/21/19 Allergies/Adverse Reactions: alprazolam [From Xanax] Allergy (Verified 10/21/19 07:21) brinzolamide [From Azopt] Allergy (Verified 10/21/19 07:21) levofloxacin [From Levaquin] Allergy (Verified 10/21/19 07:21) Sulfa (Sulfonamide Antibiotics) Allergy (Verified 10/21/19 07:21) grapes Allergy (Uncoded 10/21/19 07:21) peaches Allergy (Uncoded 10/21/19 07:21) Review of Systems ROS unobtainable: Due to mental status Physical Exam Vital Signs: Temp Pulse Resp BP Pulse Ox 98.0 F 93 19 101/46 L 98 10/21/19 12:40 10/21/19 12:40 10/21/19 12:40 10/21/19 12:40 10/21/19 12:40 Intake & Output 10/20/19 10/21/19 10/22/19 06:59 06:59 06:59 Intake Total 1000 Balance 1000 Weight 48.3 kg General appearance: PRESENT: disheveled, thin, other - Extremely elderly and frail-appearing. ABSENT: cooperative Head exam: PRESENT: atraumatic, normocephalic Eye exam: PRESENT: other - Resisted my efforts to examine his eyes Ear exam: PRESENT: normal external ear exam Mouth exam: PRESENT: dry mucosa, neck supple Teeth exam: PRESENT: poor dentation Throat exam: PRESENT: other - Would not allow me to examine his throat Neck exam: PRESENT: full ROM. ABSENT: carotid bruit, JVD, lymphadenopathy, meningismus, tenderness, thyromegaly Respiratory exam: PRESENT: crackles - Left lower lobe, unlabored. ABSENT: accessory muscle use, prolonged expiratory phas, retraction, rhonchi, tachypnea, wheezes Cardiovascular exam: PRESENT: RRR, +S1, +S2 Pulses: PRESENT: normal carotid pulses Vascular exam: PRESENT: normal capillary refill GI/Abdominal exam: PRESENT: normal bowel sounds, soft. ABSENT: distended, guarding, rebound, tenderness Extremities exam: ABSENT: clubbing, pedal edema Musculoskeletal exam: PRESENT: normal inspection, other - Very thin, his legs below the knee were about as big around as my wrist. ABSENT: deformity Neurological exam: PRESENT: awake. ABSENT: oriented to place, oriented to time, oriented to situation Skin exam: PRESENT: dry, warm, other - No evidence of pressure sores on the sacrum or buttocks, he did have one large mole on his left buttock Results Laboratory Results: 10/21/19 05:35 10/21/19 07:34 10/21/19 10/21/19 10/21/19 05:35 05:35 05:35 WBC 20.6 H RBC 5.51 Hgb 16.1 Hct 47.3 MCV 86 MCH 29.3 MCHC 34.1 RDW 14.9 H Plt Count 359 Seg Neutrophils % Not Reportable VBG pH 7.39 VBG pCO2 41.4 VBG HCO3 24.2 VBG Base Excess -0.8 Sodium Cancelled Potassium Cancelled Chloride Cancelled Carbon Dioxide Cancelled Anion Gap Cancelled BUN Cancelled Creatinine Cancelled Est GFR ( Amer) Cancelled Est GFR (Non-Af Amer) Cancelled Glucose Cancelled Lactic Acid Calcium Cancelled Total Bilirubin Cancelled AST Cancelled Alkaline Phosphatase Cancelled Total Protein Cancelled Albumin Cancelled 10/21/19 10/21/19 10/21/19 05:35 07:34 07:34 WBC RBC Hgb Hct MCV MCH MCHC RDW Plt Count Seg Neutrophils % VBG pH VBG pCO2 VBG HCO3 VBG Base Excess Sodium 141.2 Potassium 4.5 Chloride 107 Carbon Dioxide 18 L Anion Gap 16 BUN 41 H Creatinine 1.64 H Est GFR ( Amer) 48 L Est GFR (Non-Af Amer) Glucose 326 H Lactic Acid Cancelled 2.3 H Calcium 8.2 L Total Bilirubin 0.9 AST 39 Alkaline Phosphatase 142 H Total Protein 6.2 L Albumin 3.3 L 10/21/19 11:40 WBC RBC Hgb Hct MCV MCH MCHC RDW Plt Count Seg Neutrophils % VBG pH VBG pCO2 VBG HCO3 VBG Base Excess Sodium Potassium Chloride Carbon Dioxide Anion Gap BUN Creatinine Est GFR ( Amer) Est GFR (Non-Af Amer) Glucose Lactic Acid 1.9 Calcium Total Bilirubin AST Alkaline Phosphatase Total Protein Albumin Impressions: Chest X-Ray 10/21/19 05:18 IMPRESSION: Mild interstitial markings. Differential diagnosis includes pulmonary edema, atypical pneumonitis, and chronic interstitial lung disease. Assessment and Plan - Diagnosis (1) Aspiration pneumonitis Is this a current diagnosis for this admission?: Yes Plan: Chest x-ray was not very specific, but he did have some crackles in the left lower lobe. He has had problems with aspiration before so I empirically put him on some Unasyn, because of the leukocytosis and because of the report of a fever, despite the fact that we did not get one here. We will keep him n.p.o. until I can have him evaluated by speech therapy, if he will cooperate. I do not know if he has any kind of history of pulmonary fibrosis, or if what we were hearing was actually atelectasis because he does not get up and move around under his own power by the looks of him. (2) Dementia Qualifiers: Dementia type: unspecified type Dementia behavioral disturbance: with behavioral disturbance Qualified Code(s): F03.91 - Unspecified dementia with behavioral disturbance Is this a current diagnosis for this admission?: Yes Plan: Suspected to be at baseline (3) Hypoxia Is this a current diagnosis for this admission?: Yes Plan: I do not think this was as bad as was initially feared. He may not actually be hypoxic at all. We turned him down to 2 L and his SPO2 stayed at 94% the whole time. His breathing look very comfortable. We will wean oxygen as tolerated. (4) Sepsis Qualifiers: Sepsis type: sepsis due to unspecified organism Sepsis acute organ dysfunction status: unspecified Qualified Code(s): A41.9 - Sepsis, unspecified organism Is this a current diagnosis for this admission?: Yes Plan: Due to suspected aspiration pneumonitis. I do not suspect that this patient has coronavirus infection. (5) Chronic kidney disease Qualifiers: Chronic kidney disease stage: stage 2 (mild) Qualified Code(s): N18.2 - Chronic kidney disease, stage 2 (mild) Is this a current diagnosis for this admission?: Yes Plan: Creatinine is fairly close to his typical range. He is a little bit dry and so were hydrating him, and we will see if his creatinine does not respond to this. - Time Time Spent with patient: 35 or more minutes - Inpatient Certification Based on my medical assessment, after consideration of the patient's comorbidities, presenting symptoms, or acuity I expect that the services needed warrant INPATIENT care.: Yes I certify that my determination is in accordance with my understanding of Medicare's requirements for reasonable and necessary INPATIENT services [42 CFR 412.3e].: Yes Medical Necessity: Significant Comorbidiites Make Outpatient Treatment Too R isky, Need Close Monitoring Due to Risk of Patient Decompensation, Need For IV Fluids, Need for IV Antibiotics
[2019-10-21] MEDS: AMPICILLIN SODIUM/SULBACTAM NA 3 GM in NORMAL SALINE 100 ML IV SCH ×2 (15:46→21:31)
[2019-10-21] MEDS: FAMOTIDINE 20 MG TABLET PO SCH (17:48)
[2019-10-21] MEDS ORDERED: INFLUENZA QUAD (6MOS+) 2019-20 VAC 0.5 ML SYR IM ONE (17:55)
[2019-10-21] MEDS: DONEPEZIL HCL 5 MG TABLET PO SCH (22:33)
[2019-10-22] MEDS: POTASSI CL 20 MEQ/1/2NS 1L 20 MEQ/1,000 ML RTUINJ IV PRN ×2 (03:01→23:48)
[2019-10-22] MEDS: AMPICILLIN SODIUM/SULBACTAM NA 3 GM in NORMAL SALINE 100 ML IV SCH ×4 (03:02→21:14)
[2019-10-22] MEDS: HEPARIN SOD (PORCINE) 5,000 UNIT/ML 1 ML VIAL SUBCUT SCH ×3 (05:47→21:15)
[2019-10-22 06:12] LABS: HEMATOCRIT 38.1 % (37.9-51.0); MEAN CORPUSCULAR HGB CONC 33.8 g/dL (32.0-36.0); MEAN CORPUSCULAR VOLUME 86 fl (80-97); PLATELET COUNT 319 10^3/uL (150-450); RED BLOOD COUNT 4.46 10^6/uL (4.35-5.55); RED CELL DISTRIBUTION WIDTH 14.7 % (11.5-14.0); WHITE BLOOD COUNT 12.6 10^3/uL (4.0-10.5)
[2019-10-22 06:17] LABS: HEMOGLOBIN 12.9 g/dL (13.5-17.0)
[2019-10-22 06:22] LABS: ANION GAP 10 (5-19); BLOOD UREA NITROGEN 24 mg/dL (7-20); CALCIUM 8.3 mg/dL (8.4-10.2); CARBON DIOXIDE 20 mmol/L (22-30); CHLORIDE 114 mmol/L (98-107); GLUCOSE 162 mg/dL (75-110); POTASSIUM 4.2 mmol/L (3.6-5.0)
[2019-10-22] MEDS: CLOPIDOGREL BISULFATE 75 MG TABLET PO SCH (09:02)
[2019-10-22] MEDS: GLIPIZIDE 5 MG TABLET PO SCH (09:02)
[2019-10-22] MEDS: FAMOTIDINE 20 MG TABLET PO SCH ×2 (09:02→17:06)
--- NOTE | 2019-10-22 09:57 | PDOC PROGRESS REPORT ---
Subjective Progress Note for:: 10/22/19 Subjective:: 89 year old male with a history of advanced dementia and so all of the historical data here is obtained from review the medical record or from third- alliance party sources. He allegedly lives at home with his son who is his primary caregiver and his son called EMS because he had a fever couple of days ago and has not been eating for the past 4 to 5 days. He is also apparently less interactive than he has been in previous days. Has not left his house in a long time and has had no visitors. He apparently has had some trouble with aspiration in the past. He does not eat very much normally. He is not had any Tylenol today and was not febrile here or for EMS. They said he was hypoxic initially and had to put him on 10 L of oxygen per nasal cannula but when I got down to the ER I turned his oxygen down to 2 L and he was 94%. Chest x-ray was nonspecific. He did not really interact with me, but he resisted our efforts to turn him over to examine him. He did have a leukocytosis. He is being admitted for further evaluation. His son did not want him resuscitated or intubated but he did want him treated if we could find something. 10/22/2019-patient is still n.p.o. Waiting for speech evaluation. CODE STATUS is DNR/DNI. Patient unable to communicate. On IV antibiotic therapy Unasyn. Chest x-ray suggestive of aspiration pneumonitis. Reason For Visit: SEPSIS, ASPIRATION PNEUMONITIS,DEHYDRATION Physical Exam Vital Signs: Temp Pulse Resp BP Pulse Ox 97.8 F 88 20 169/70 H 97 10/22/19 07:29 10/22/19 07:29 10/22/19 07:29 10/22/19 07:29 10/22/19 07:29 Intake & Output 10/21/19 10/22/19 10/23/19 06:59 06:59 06:59 Intake Total 2300 Balance 2300 Weight 48.9 kg General appearance: PRESENT: no acute distress, disheveled, thin, other - Patient is unable to communicate. Head exam: PRESENT: atraumatic Eye exam: PRESENT: PERRLA Mouth exam: PRESENT: dry mucosa Teeth exam: PRESENT: poor dentation Neck exam: ABSENT: carotid bruit, JVD, lymphadenopathy, thyromegaly Respiratory exam: PRESENT: decreased breath sounds Cardiovascular exam: PRESENT: tachycardia GI/Abdominal exam: PRESENT: normal bowel sounds, soft. ABSENT: distended, guarding, mass, organolmegaly, rebound, tenderness Rectal exam: PRESENT: deferred Neurological exam: PRESENT: altered, other - Unable to communicate. No focalized deficits seen. Psychiatric exam: PRESENT: flat affect Results Laboratory Results: 10/22/19 05:05 10/22/19 05:05 10/21/19 10/21/19 10/22/19 11:40 15:09 05:05 WBC 12.6 H RBC 4.46 Hgb 12.9 L D Hct 38.1 MCV 86 MCH 29.0 MCHC 33.8 RDW 14.7 H Plt Count 319 Sodium Potassium Chloride Carbon Dioxide Anion Gap BUN Creatinine Est GFR ( Amer) Glucose Lactic Acid 1.9 2.1 Calcium 10/22/19 05:05 WBC RBC Hgb Hct MCV MCH MCHC RDW Plt Count Sodium 143.8 Potassium 4.2 Chloride 114 H Carbon Dioxide 20 L Anion Gap 10 BUN 24 H Creatinine 0.80 Est GFR ( Amer) > 60 Glucose 162 H Lactic Acid Calcium 8.3 L Impressions: Chest X-Ray 10/21/19 05:18 IMPRESSION: Mild interstitial markings. Differential diagnosis includes pulmonary edema, atypical pneumonitis, and chronic interstitial lung disease. Assessment and Plan - Diagnosis (1) Aspiration pneumonitis Is this a current diagnosis for this admission?: Yes Plan: Chest x-ray was not very specific, but he did have some crackles in the left lower lobe. He has had problems with aspiration before so I empirically put him on some Unasyn, because of the leukocytosis and because of the report of a fever, despite the fact that we did not get one here. We will keep him n.p.o. until I can have him evaluated by speech therapy, if he will cooperate. I do not know if he has any kind of history of pulmonary fibrosis, or if what we were hearing was actually atelectasis because he does not get up and move around under his own power by the looks of him. 10/22/2019-chest x-ray suggestive of aspiration pneumonitis. Presently on Unasyn. T-max is 97.8. Pulse ox is 94% on 2 L. Presently n.p.o. waiting for speech evaluation. Plan to do the CT chest without contrast for further information. Unable to communicate may be secondary to underlying dementia. CODE STATUS is DNR/DNI. Blood cultures are negative. (2) Dementia Qualifiers: Dementia type: unspecified type Dementia behavioral disturbance: with behavioral disturbance Qualified Code(s): F03.91 - Unspecified dementia with behavioral disturbance Is this a current diagnosis for this admission?: Yes Plan: Suspected to be at baseline (3) Hypoxia Is this a current diagnosis for this admission?: Yes Plan: I do not think this was as bad as was initially feared. He may not actually be hypoxic at all. We turned him down to 2 L and his SPO2 stayed at 94% the whole time. His breathing look very comfortable. We will wean oxygen as tolerated. 10/22/2019-patient admitted with hypoxia which was resolved. Presently on 2 L oxygen pulse ox is 94%. CT chest was requested to get further information. (4) Sepsis Qualifiers: Sepsis type: sepsis due to unspecified organism Sepsis acute organ dysfunction status: unspecified Qualified Code(s): A41.9 - Sepsis, unspecified organism Is this a current diagnosis for this admission?: Yes Plan: Due to suspected aspiration pneumonitis. I do not suspect that this patient has coronavirus infection. 10/22/2019-patient admitted with suspected aspiration pneumonitis. CT chest without contrast was requested. On IV Unasyn. Afebrile. Presently n.p.o. speech therapies consult is pending. (5) DNR (do not resuscitate) Is this a current diagnosis for this admission?: Yes (6) Chronic kidney disease Qualifiers: Chronic kidney disease stage: stage 2 (mild) Qualified Code(s): N18.2 - Chronic kidney disease, stage 2 (mild) Is this a current diagnosis for this admission?: No Plan: Creatinine is fairly close to his typical range. He is a little bit dry and so were hydrating him, and we will see if his creatinine does not respond to this. 10/22/19-serum creatinine 0.8. Patient has history of chronic kidney disease. Stable. (7) Leukocytosis Qualifiers: Leukocytosis type: unspecified Qualified Code(s): D72.829 - Elevated white blood cell count, unspecified Is this a current diagnosis for this admission?: Yes Plan: 10/22/2019-WBC count is 12,600. May be secondary to sepsis. (8) Sepsis Is this a current diagnosis for this admission?: Yes Plan: Due to suspected aspiration pneumonitis. I do not suspect that this patient has coronavirus infection.
--- NOTE | 2019-10-22 10:48 | RADIOLOGY REPORT (SQ) ---
EXAM DESCRIPTION: CT CHEST WITHOUT COMPLETED DATE/TIME: 10/22/2019 10:14 am REASON FOR STUDY: aspiration pneumonia COMPARISON: Chest x-ray dated 10/21/2019 TECHNIQUE: CT scan performed of the chest without intravenous contrast. Images reviewed with lung, soft tissue and bone windows. Reconstructed coronal and sagittal MPR images reviewed. All images st ored on PACS. All CT scanners at this facility use dose modulation, iterative reconstruction, and/or weight based d osing when appropriate to reduce radiation dose to as low as reasonably achievable (ALARA). [facility]: Dose Right [facility]: CareDose [facility]: Dose Right [facility]: Teradose 4D [facility]: [employer] RADIATION DOSE: CT Rad equipment meets quality standard of care and radiation dose reduction techniq ues were employed. CTDIvol: 5.5 mGy. DLP: 188 mGy-cm. mGy. LIMITATIONS: No technical limitations. FINDINGS: LUNGS AND PLEURA: There is left lower lobe airspace disease. Minimal infiltrate in the pe riphery of the left upper lobe. Findings are nonspecific most likely infectious or inflammatory. No associated adenopathy. Probable mild underlying interstitial airspace disease. HILAR AND MEDIASTINAL STRUCTURES: No identified masses or abnormal nodes. No obvious aneurysm. HEART AND VASCULAR STRUCTURES: No aneurysm. No pericardial effusion. UPPER ABDOMEN: No significant findings. Limited exam. THYROID AND OTHER SOFT TISSUES: No masses. No adenopathy. BONES: No significant finding. HARDWARE: None in the chest. OTHER: No other significant findings. IMPRESSION: Mainly left lower lobe airspace disease consistent with pneumonia. Minimal airspace dis ease in the periphery of the left upper lobe. TECHNICAL DOCUMENTATION: JOB ID: [id number] Quality ID # [id number]: Final reports with documentation of one or more dose reduction techniques (e.g., Au tomated exposure control, adjustment of the mA and/or kV according to patient size, use of iterative reconstruction technique) 2010 [employer]- All Rights Reserved Reading location - IP/workstation name: [email or web address]
[2019-10-22] MEDS: DONEPEZIL HCL 5 MG TABLET PO SCH (21:15)
[2019-10-23] MEDS: AMPICILLIN SODIUM/SULBACTAM NA 3 GM in NORMAL SALINE 100 ML IV SCH ×2 (03:40→09:11)
[2019-10-23] MEDS: HEPARIN SOD (PORCINE) 5,000 UNIT/ML 1 ML VIAL SUBCUT SCH (05:11)
[2019-10-23 07:13] LABS: HEMATOCRIT 40.9 % (37.9-51.0); MEAN CORPUSCULAR HEMOGLOBIN 28.9 pg (27.0-33.4); MEAN CORPUSCULAR HGB CONC 34.1 g/dL (32.0-36.0); MEAN CORPUSCULAR VOLUME 85 fl (80-97); PLATELET COUNT 342 10^3/uL (150-450); RED BLOOD COUNT 4.83 10^6/uL (4.35-5.55); RED CELL DISTRIBUTION WIDTH 14.4 % (11.5-14.0); WHITE BLOOD COUNT 9.4 10^3/uL (4.0-10.5)
[2019-10-23 07:37] LABS: ANION GAP 11 (5-19); BLOOD UREA NITROGEN 15 mg/dL (7-20); CALCIUM 8.6 mg/dL (8.4-10.2); CARBON DIOXIDE 21 mmol/L (22-30); CHLORIDE 108 mmol/L (98-107); GLUCOSE 126 mg/dL (75-110); POTASSIUM 4.3 mmol/L (3.6-5.0)
[2019-10-23] MEDS: GLIPIZIDE 5 MG TABLET PO SCH (09:18)
[2019-10-23] MEDS: FAMOTIDINE 20 MG TABLET PO SCH (09:18)
[2019-10-23] MEDS: CLOPIDOGREL BISULFATE 75 MG TABLET PO SCH (09:18)
--- NOTE | 2019-10-23 10:58 | PDOC DISCHARGE SUMMARY ---
Impression - Admit/DC Date/PCP Admission Date/Primary Care Provider: 10/21/19 09:55 VIRI HERNANDEZ MD Discharge Date: 10/23/19 - Discharge Diagnosis (1) Aspiration pneumonitis Is this a current diagnosis for this admission?: Yes (2) Dementia Is this a current diagnosis for this admission?: Yes (3) Hypoxia Is this a current diagnosis for this admission?: Yes (4) Sepsis Is this a current diagnosis for this admission?: Yes (5) DNR (do not resuscitate) Is this a current diagnosis for this admission?: Yes (6) Chronic kidney disease Is this a current diagnosis for this admission?: No (7) Leukocytosis Is this a current diagnosis for this admission?: Yes (8) Sepsis Is this a current diagnosis for this admission?: Yes - Assessment Summary: 89-year-old male with history of advanced dementia admitted with fever and decreased oral intake for several days. CT scan suggestive of aspiration pneumonitis. The differential diagnosis for this. Patient was kept n.p.o. speech therapy was requested patient unable to participate in speech therapy. Patient CODE STATUS is DNR/DNI. Family expressed desire to take the patient home with hospice care. - Additional Information Discharge Diet: As Tolerated Referrals: HOSPICE,CARE [Other] Home Medications: Clopidogrel Bisulfate [Plavix 75 mg Tablet] 75 mg PO DAILY 10/08/16 Famotidine 20 mg PO BID 10/08/16 Donepezil HCl [Aricept 5 mg Tablet] 5 mg PO QHS 10/21/19 History of Present Illiness History of Present Illness: MAGUI CABALLERO is a 89 year old male 89 year old male with a history of advanced dementia and so all of the historical data here is obtained from review the medical record or from third- democrat sources. He allegedly lives at home with his son who is his primary caregiver and his son called EMS because he had a fever couple of days ago and has not been eating for the past 4 to 5 days. He is also apparently less interactive than he has been in previous days. Has not left his house in a long time and has had no visitors. He apparently has had some trouble with aspiration in the past. He does not eat very much normally. He is not had any Tylenol today and was not febrile here or for EMS. They said he was hypoxic initially and had to put him on 10 L of oxygen per nasal cannula but when I got down to the ER I turned his oxygen down to 2 L and he was 94%. Chest x-ray was nonspecific. He did not really interact with me, but he resisted our efforts to turn him over to examine him. He did have a leukocytosis. He is being admitted for further evaluation. His son did not want him resuscitated or intubated but he did want him treated if we could find something. Hospital Course Hospital Course: 89 year old male with a history of advanced dementia and so all of the historical data here is obtained from review the medical record or from third- democrat sources. He allegedly lives at home with his son who is his primary caregiver and his son called EMS because he had a fever couple of days ago and has not been eating for the past 4 to 5 days. He is also apparently less interactive than he has been in previous days. Has not left his house in a long time and has had no visitors. He apparently has had some trouble with aspiration in the past. He does not eat very much normally. He is not had any Tylenol today and was not febrile here or for EMS. They said he was hypoxic initially and had to put him on 10 L of oxygen per nasal cannula but when I got down to the ER I turned his oxygen down to 2 L and he was 94%. Chest x-ray was nonspecific. He did not really interact with me, but he resisted our efforts to turn him over to examine him. He did have a leukocytosis. He is being admitted for further evaluation. His son did not want him resuscitated or intubated but he did want him treated if we could find something. 10/22/2019-patient is still n.p.o. Waiting for speech evaluation. CODE STATUS is DNR/DNI. Patient unable to communicate. On IV antibiotic therapy Unasyn. Chest x-ray suggestive of aspiration pneumonitis. 10/23/2019-patient unable to participate in physical therapy unable to participate with speech. High risk for aspiration. He prefers to take him home with hospice care. Physical Exam Vital Signs: Temp Pulse Resp BP Pulse Ox 98.2 F 103 H 18 170/74 H 94 10/23/19 07:40 10/23/19 07:40 10/23/19 07:40 10/23/19 07:40 10/23/19 07:40 Intake & Output 10/22/19 10/23/19 10/24/19 06:59 06:59 06:59 Intake Total 2300 1400 Output Total 1 Balance 2300 1399 Weight 48.9 kg 48.2 kg General appearance: PRESENT: disheveled, thin Head exam: PRESENT: atraumatic Eye exam: PRESENT: other - Are constricted but reactive. Mouth exam: PRESENT: dry mucosa Teeth exam: PRESENT: poor dentation Neck exam: ABSENT: carotid bruit, JVD, lymphadenopathy, thyromegaly Respiratory exam: PRESENT: decreased breath sounds, other - trasmitted breath sounds present. Cardiovascular exam: PRESENT: tachycardia GI/Abdominal exam: PRESENT: normal bowel sounds, soft. ABSENT: distended, guarding, mass, organolmegaly, rebound, tenderness Rectal exam: PRESENT: deferred Neurological exam: PRESENT: alert, awake, oriented to person, oriented to place, oriented to time, oriented to situation, CN II-XII grossly intact. ABSENT: motor sensory deficit Psychiatric exam: PRESENT: appropriate affect, normal mood. ABSENT: homicidal ideation, suicidal ideation Results Laboratory Results: WBC 9.4 10^3/uL (4.0-10.5) 10/23/19 06:53 RBC 4.83 10^6/uL (4.35-5.55) 10/23/19 06:53 Hgb 14.0 g/dL (13.5-17.0) 10/23/19 06:53 Hct 40.9 % (37.9-51.0) 10/23/19 06:53 MCV 85 fl (80-97) 10/23/19 06:53 MCH 28.9 pg (27.0-33.4) 10/23/19 06:53 MCHC 34.1 g/dL (32.0-36.0) 10/23/19 06:53 RDW 14.4 % (11.5-14.0) H 10/23/19 06:53 Plt Count 342 10^3/uL (150-450) 10/23/19 06:53 Lymph % (Auto) Not Reportable 10/21/19 05:35 [place] % (Auto) Not Reportable 10/21/19 05:35 Eos % (Auto) Not Reportable 10/21/19 05:35 Baso % (Auto) Not Reportable 10/21/19 05:35 Absolute Neuts (auto) Not Reportable 10/21/19 05:35 Absolute Lymphs (auto) Not Reportable 10/21/19 05:35 Absolute Monos (auto) Not Reportable 10/21/19 05:35 Absolute Eos (auto) Not Reportable 10/21/19 05:35 Absolute Basos (auto) Not Reportable 10/21/19 05:35 Total Counted 100 10/21/19 05:35 Seg Neutrophils % Not Reportable 10/21/19 05:35 Seg Neuts % (Manual) 88 % (42-78) H 10/21/19 05:35 Band Neutrophils % 1 % (3-5) L 10/21/19 05:35 Lymphocytes % (Manual) 5 % (13-45) L 10/21/19 05:35 Monocytes % (Manual) 6 % (3-13) 10/21/19 05:35 Eosinophils % (Manual) 0 % (0-6) 10/21/19 05:35 Basophils % (Manual) 0 % (0-2) 10/21/19 05:35 Abs Neuts (Manual) 18.3 10^3/uL (1.7-8.2) H 10/21/19 05:35 Abs Lymphs (Manual) 1.0 10^3/uL (0.5-4.7) 10/21/19 05:35 Abs Monocytes (Manual) 1.2 10^3/uL (0.1-1.4) 10/21/19 05:35 Absolute Eos (Manual) 0.0 10^3/uL (0.0-0.6) 10/21/19 05:35 Abs Basophils (Manual) 0.0 10^3/uL (0.0-0.2) 10/21/19 05:35 Toxic Granulation SLIGHT 10/21/19 05:35 Platelet Comment ADEQUATE 10/21/19 05:35 Poikilocytosis SLIGHT 10/21/19 05:35 Anisocytosis SLIGHT 10/21/19 05:35 Ovalocytes SLIGHT 10/21/19 05:35 [place] Cells SLIGHT 10/21/19 05:35 PT 15.6 SEC (11.4-15.4) H 10/21/19 05:35 INR 1.23 10/21/19 05:35 VBG pH 7.39 (7.30-7.42) 10/21/19 05:35 VBG pCO2 41.4 mmHg (35-63) 10/21/19 05:35 VBG HCO3 24.2 mmol/L (20-32) 10/21/19 05:35 VBG Base Excess -0.8 mmol/L 10/21/19 05:35 Sodium 139.8 mmol/L (137-145) 10/23/19 06:53 Potassium 4.3 mmol/L (3.6-5.0) 10/23/19 06:53 Chloride 108 mmol/L (98-107) H 10/23/19 06:53 Carbon Dioxide 21 mmol/L (22-30) L 10/23/19 06:53 Anion Gap 11 (5-19) 10/23/19 06:53 BUN 15 mg/dL (7-20) 10/23/19 06:53 Creatinine 0.64 mg/dL (0.52-1.25) 10/23/19 06:53 Est GFR ( Amer) > 60 (>60) 10/23/19 06:53 Est GFR (Non-Af Amer) Cancelled 10/21/19 05:35 Est GFR (MDRD) Non-Af > 60 (>60) 10/23/19 06:53 Glucose 126 mg/dL (75-110) H 10/23/19 06:53 Lactic Acid 2.1 mmol/L (0.7-2.1) 10/21/19 15:09 Calcium 8.6 mg/dL (8.4-10.2) 10/23/19 06:53 Magnesium 2.4 mg/dL (1.6-2.3) H 10/23/19 06:53 Total Bilirubin 0.9 mg/dL (0.2-1.3) 10/21/19 07:34 Direct Bilirubin 0.3 mg/dL (0.0-0.4) 10/21/19 07:34 Neonat Total Bilirubin Not Reportable 10/21/19 07:34 Neonat Direct Bilirubin Not Reportable 10/21/19 07:34 Neonat Indirect Bili Not Reportable 10/21/19 07:34 AST 39 U/L (17-59) 10/21/19 07:34 ALT 24 U/L (<50) 10/21/19 07:34 Alkaline Phosphatase 142 U/L (38-126) H 10/21/19 07:34 Total Protein 6.2 g/dL (6.3-8.2) L 10/21/19 07:34 Albumin 3.3 g/dL (3.5-5.0) L 10/21/19 07:34 EGFR Cancelled 10/21/19 05:35 Impressions: Chest X-Ray 10/21/19 05:18 IMPRESSION: Mild interstitial markings. Differential diagnosis includes pulmonary edema, atypical pneumonitis, and chronic interstitial lung disease. Chest CT 10/22/19 00:00 IMPRESSION: Mainly left lower lobe airspace disease consistent with pneumonia. Minimal airspace disease in the periphery of the left upper lobe. Plan Plan of Treatment: pt is going home with hospice. Time Spent: Greater than 30 Minutes Stroke Is this a Stroke Patient?: No Acute Heart Failure - Is this a Heart Failure Patient?: No
[2019-10-23 12:52] VITALS: BP 165/75
== END 2019-10-23 13:25 | disposition hospice, home (50) | DRG 871 ==
LOC: ER 05:00 → EH 09:55 → 4W 12:32
PROVIDERS: ADMIT Family Medicine; ATTEND Internal Medicine
DX: A41.9 Sepsis, unspecified organism (principal); J69.0 Pneumonitis due to inhalation of food and vomit; F03.90 Unspecified dementia, unspecified severity, without behavioral disturbance, psychotic disturbance, mood disturbance, and anxiety; E11.22 Type 2 diabetes mellitus with diabetic chronic kidney disease; R09.02 Hypoxemia; I12.9 Hypertensive chronic kidney disease with stage 1 through stage 4 chronic kidney disease, or unspecified chronic kidney disease; N18.2 Chronic kidney disease, stage 2 (mild); K21.9 Gastro-esophageal reflux disease without esophagitis; Z66 Do not resuscitate; Z79.02 Long term (current) use of antithrombotics/antiplatelets; Z79.84 Long term (current) use of oral hypoglycemic drugs; Z79.899 Other long term (current) drug therapy; Z88.3 Allergy status to other anti-infective agents; Z88.2 Allergy status to sulfonamides; Z88.8 Allergy status to other drugs, medicaments and biological substances; Z91.018 Allergy to other foods; Z86.73 Personal history of transient ischemic attack (TIA), and cerebral infarction without residual deficits
CPT/HCPCS: 36415; 71045; 71250; 80048; 80053; 82803; 83605; 83735; 85025; 85027; 85610; 87040; 93005; 93010; 96361; 96365; 99285; J0295; J2543; J3480; J7030; J7050

== ENCOUNTER 2019-10-23 19:26 | Observation (INO) | payer MEDICARE ==
[2019-10-23] MEDS ORDERED: NORMAL SALINE 1000 ML 1,000 ML IV ONE (21:03)
[2019-10-23] MEDS ORDERED: AMPICILLIN SOD/SULBACTAM 3 GM VIAL IV ONE (21:03)
--- NOTE | 2019-10-23 21:13 | ER Document Report ---
Entered by LOR SURESH SCRIBE 10/23/192042 Acting as scribe for:BRITTNEY PADGETT IV, MD ED General - General Chief Complaint: Shortness Of Breath Stated Complaint: DIFFICULTY BREATHING Time Seen by Provider: 10/23/19 20:41 Mode of Arrival: Medic Information source: Relative - Son, Emergency Med Personnel Notes: This 89 year old male patient with a history of aspiration pneumonitis, type 2 diabetes, chronic kidney disease, and advanced dementia brought in by EMS presents to the ED today with complaints of dyspnea and shortness of breath. ED nurse reports that the patient's son called EMS because he was advised by Dr. Messina to bring the patient back to the ED to finish his antibiotic therapy which he started after being diagnosed x2 days ago with aspiration pneumonitis; he was discharged earlier today. ED nurse reports that the patient has been noncompliant with his diet. ED nurse also states that the son reports a right eye infection. TRAVEL OUTSIDE OF THE [place] IN LAST 30 DAYS: No - Related Data Allergies/Adverse Reactions: alprazolam [From Xanax] Allergy (Verified 10/21/19 07:21) brinzolamide [From Azopt] Allergy (Verified 10/21/19 07:21) levofloxacin [From Levaquin] Allergy (Verified 10/21/19 07:21) Sulfa (Sulfonamide Antibiotics) Allergy (Verified 10/21/19 07:21) grapes Allergy (Uncoded 10/21/19 07:21) peaches Allergy (Uncoded 10/21/19 07:21) Past Medical History - General Information source: Relative - Son, Emergency Med Personnel, [facility] Records - Social History Smoking Status: Unknown if Ever Smoked Cigarette use (# per day): No Chew tobacco use (# tins/day): No Smoking Education Provided: No Frequency of alcohol use: None Drug Abuse: None Family History: Reviewed & Not Pertinent Patient has suicidal ideation: No Patient has homicidal ideation: No - Past Medical History Cardiac Medical History: Reports: Hx Hypertension Neurological Medical History: Reports: Hx Cerebrovascular Accident Endocrine Medical History: Reports: Hx Diabetes Mellitus Type 2 - oral Renal/ Medical History: Reports: Other - Hx Chronic Kidney Disease GI Medical History: Reports: Hx Gastroesophageal Reflux Disease Psychiatric Medical History: Reports: Hx Dementia Past Surgical History: Reports: Hx Abdominal Surgery - SBO, Hx Orthopedic Surgery - Immunizations Hx Diphtheria, Pertussis, Tetanus Vaccination: Yes Review of Systems - Review of Systems Constitutional: No symptoms reported EENT: See HPI, Other - Eye infection Cardiovascular: See HPI, Dyspnea Respiratory: See HPI, Short of breath Gastrointestinal: No symptoms reported Genitourinary: No symptoms reported Male Genitourinary: No symptoms reported Musculoskeletal: No symptoms reported Skin: No symptoms reported Hematologic/Lymphatic: No symptoms reported Neurological/Psychological: See HPI, Dementia -: Yes All other systems reviewed and negative Physical Exam - Vital signs Vitals: Temp 97.8 F 10/23/19 19:27 - General General appearance: Other - Somnolent - HEENT Head: Normocephalic, Atraumatic Eyes: Normal Pupils: PERRL - Respiratory Respiratory status: No respiratory distress Chest status: Nontender Breath sounds: Normal Chest palpation: Normal - Cardiovascular Rhythm: Regular Heart sounds: Normal auscultation Murmur: No Friction rub: No Gallop: None auscultated - Abdominal Inspection: Normal Distension: No distension Bowel sounds: Normal Tenderness: Nontender - Abdomen soft Organomegaly: No organomegaly - Back Back: Normal, Nontender - Extremities General upper extremity: Other - Atrophied and joni General lower extremity: Other - Atrophied and joni - Neurological Neuro grossly intact: Yes - Psychological Associated symptoms: Other - Somnolent - Skin Skin Temperature: Warm Skin Moisture: Dry Skin Color: Normal Course - Re-evaluation Re-evalutation: 10/23/19 22:43 supervisor cartography Chase spoke directly with Dr. Thomas who wrote admission orders for the patient. - Vital Signs Vital signs: Temp Pulse Resp BP Pulse Ox 96.4 F L 77 17 152/70 H 96 10/23/19 22:54 10/23/19 22:54 10/23/19 22:54 10/23/19 22:54 10/23/19 22:54 - Laboratory Result Diagrams: 10/23/19 21:15 10/23/19 21:15 Laboratory results interpreted by me: 10/23/19 10/23/19 21:15 21:24 Glucose 119 H Urine Protein 30 H Urine Glucose (UA) 50 H Urine Ketones 20 H Urine Urobilinogen 4.0 H - Consults dr. breanna thomas Time consulted: 22:55 Reason for consultation: 10/23/19 22:59 dyspnea, h/o aspiration pneumonia Discharge - Discharge Clinical Impression: Dyspnea Qualifiers: Dyspnea type: unspecified Qualified Code(s): R06.00 - Dyspnea, unspecified Pneumonia Qualifiers: Pneumonia type: due to unspecified organism Condition: Good Disposition: ADMITTED OBSERVATION Admitting Provider: William (Hospitalist) Unit Admitted: Medical Floor I personally performed the services described in the documentation, reviewed and edited the documentation which was dictated to the scribe in my presence, and it accurately records my words and actions.
[2019-10-23 21:46] LABS: APPEARANCE,URINE SLIGHTLY-CLOUDY; BILIRUBIN,URINE NEGATIVE (NEGATIVE); COLOR,URINE YELLOW; GLUCOSE, URINE 50 mg/dL (NEGATIVE); KETONES,URINE 20 mg/dL (NEGATIVE); LEUKOCYTE ESTERASE,URINE NEGATIVE (NEGATIVE); NITRITE,URINE NEGATIVE (NEGATIVE); PROTEIN,URINE 30 mg/dL (NEGATIVE); URINE SPECIFIC GRAVITY 1.019
[2019-10-23 21:51] LABS: ANION GAP 12 (5-19); BLOOD UREA NITROGEN 15 mg/dL (7-20); CALCIUM 8.9 mg/dL (8.4-10.2); CARBON DIOXIDE 24 mmol/L (22-30); CHLORIDE 104 mmol/L (98-107); GLUCOSE 119 mg/dL (75-110); POTASSIUM 4.2 mmol/L (3.6-5.0)
--- NOTE | 2019-10-23 22:07 | RADIOLOGY REPORT (SQ) ---
CLINICAL INDICATION: dyspnea. TECHNIQUE: A single portable AP view was obtained of the chest at 2151 hours. COMPARISON: None. FINDINGS: The cardiomediastinal silhouette is normal. The lungs are grossly clear. No evidence of effusion or pneumothorax. Osteoarthritis. Laxity in the right shoulder. IMPRESSION: No evidence of active intrathoracic disease.
[2019-10-23] MEDS ORDERED: DEXTROSE 40% GEL 15 GM TUBE PO PRN ×2 (23:04)
[2019-10-23] MEDS ORDERED: GLUCAGON,HUMAN RECOMB 1 MG INJ SUBCUT PRN (23:04)
[2019-10-23] MEDS ORDERED: DEXTROSE 50%-WATER 25 GM/50 ML DISP.SYRIN IV PRN ×2 (23:04)
[2019-10-23 23:09] LABS: ABSOLUTE EOSINOPHILS # (AUTO) 0.2 10^3/uL (0.0-0.6); ABSOLUTE LYMPHOCYTES (AUTO) 1.3 10^3/uL (0.5-4.7); ABSOLUTE MONOCYTES (AUTO) 1.1 10^3/uL (0.1-1.4); ABSOLUTE NEUT (AUTO) 7.9 10^3/uL (1.7-8.2); BASOPHILS % (AUTO) 0.4 % (0-2); EOSINOPHILS % (AUTO) 1.6 % (0-6); LYMPHOCYTES % (AUTO) 12.1 % (13-45); MEAN CORPUSCULAR HEMOGLOBIN 29.2 pg (27.0-33.4); MEAN CORPUSCULAR HGB CONC 34.7 g/dL (32.0-36.0); MEAN CORPUSCULAR VOLUME 84 fl (80-97); MONOCYTES % (AUTO) 10.7 % (3-13); PLATELET COUNT 304 10^3/uL (150-450); RED BLOOD COUNT 4.75 10^6/uL (4.35-5.55); RED CELL DISTRIBUTION WIDTH 13.9 % (11.5-14.0); SEGMENTED NEUTROPHILS % (AUTO) 75.2 % (42-78); TOTAL CELLS COUNTED % (AUTO) 100 %; WHITE BLOOD COUNT 10.5 10^3/uL (4.0-10.5)
[2019-10-23 23:11] LABS: HEMOGLOBIN 13.9 g/dL (13.5-17.0)
[2019-10-24] MEDS: IPRATROPIUM/ALBUTEROL 0.5-2.5 MG/3 ML AMPUL NEB SCH ×3 (00:49→15:58)
[2019-10-24 05:58] LABS: ABSOLUTE EOSINOPHILS # (AUTO) 0.2 10^3/uL (0.0-0.6); ABSOLUTE LYMPHOCYTES (AUTO) 1.3 10^3/uL (0.5-4.7); ABSOLUTE MONOCYTES (AUTO) 0.8 10^3/uL (0.1-1.4); ABSOLUTE NEUT (AUTO) 6.2 10^3/uL (1.7-8.2); BASOPHILS % (AUTO) 0.4 % (0-2); EOSINOPHILS % (AUTO) 1.8 % (0-6); HEMATOCRIT 41.4 % (37.9-51.0); HEMOGLOBIN 14.3 g/dL (13.5-17.0); LYMPHOCYTES % (AUTO) 15.8 % (13-45); MEAN CORPUSCULAR HEMOGLOBIN 29.2 pg (27.0-33.4); MEAN CORPUSCULAR HGB CONC 34.6 g/dL (32.0-36.0); MEAN CORPUSCULAR VOLUME 85 fl (80-97); MONOCYTES % (AUTO) 8.9 % (3-13); PLATELET COUNT 320 10^3/uL (150-450); RED CELL DISTRIBUTION WIDTH 14.3 % (11.5-14.0); SEGMENTED NEUTROPHILS % (AUTO) 73.1 % (42-78); TOTAL CELLS COUNTED % (AUTO) 100 %; WHITE BLOOD COUNT 8.5 10^3/uL (4.0-10.5)
[2019-10-24] MEDS: HEPARIN SOD (PORCINE) 5,000 UNIT/ML 1 ML VIAL SUBCUT SCH ×3 (06:05→21:46)
--- NOTE | 2019-10-24 06:16 | PDOC H&P ---
History of Present Illness Admission Date/PCP: 10/23/19 22:38 VIRI HERNANDEZ MD Patient complains of: Nothing History of Present Illness: MAGUI CABALLERO is a 89 year old [place]ivian-speaking male with a past medical history of difficulty hearing, type 2 diabetes, CKD, hypertension, GERD, dementia with aspiration, discharged 6 hours ago following an episode of aspir ation pneumonitis. Patient returns to the emergency department as there is misunderstanding about the patient's disposition with his son and the primary caregiver. Patient's CODE STATUS is verified to be DNR/DNI. Patient is interviewed in Bolivian but appears disinterested to interact. However he is awake and alert he is in no acute distress he is lying flat without fever, tachycardia, hyper or hypotension, with oxygen saturations of 95% on room air. Discharge planning and speech therapy consult ordered. Past Medical History Cardiac Medical History: Reports: Hypertension Endocrine Medical History: Reports: Diabetes Mellitus Type 2 - oral Renal/ Medical History: Reports: Other - Hx Chronic Kidney Disease GI Medical History: Reports: Gastroesophageal Reflux Disease Psychiatric Medical History: Reports: Dementia Past Surgical History Past Surgical History: Reports: Orthopedic Surgery Social History Information Source: [facility], [facility] Lives with: Family Smoking Status: Unknown if Ever Smoked Frequency of Alcohol Use: None Hx Recreational Drug Use: No Hx Prescription Drug Abuse: No - Advance Directive Resuscitation Status: Do Not Resuscitate Family History Family History: Other - Unobtainable. denies: Reviewed & Not Pertinent Parental Family History Reviewed: No - Unobtainable Children Family History Reviewed: No - Unobtainable Sibling(s) Family History Reviewed.: No - Unobtainable Medication/Allergy Home Medications: Clopidogrel Bisulfate [Plavix 75 mg Tablet] 75 mg PO DAILY 10/08/16 Famotidine 20 mg PO BID 10/08/16 Donepezil HCl [Aricept 5 mg Tablet] 5 mg PO QHS 10/21/19 Allergies/Adverse Reactions: alprazolam [From Xanax] Allergy (Verified 10/21/19 07:21) brinzolamide [From Azopt] Allergy (Verified 10/21/19 07:21) levofloxacin [From Levaquin] Allergy (Verified 10/21/19 07:21) Sulfa (Sulfonamide Antibiotics) Allergy (Verified 10/21/19 07:21) grapes Allergy (Uncoded 10/21/19 07:21) peaches Allergy (Uncoded 10/21/19 07:21) Review of Systems ROS unobtainable: Due to mental status Physical Exam Vital Signs: Temp Pulse Resp BP Pulse Ox 97.6 F 88 12 134/56 H 92 10/23/19 23:27 10/24/19 00:49 10/24/19 00:49 10/23/19 23:27 10/24/19 00:49 Intake & Output 10/22/19 10/23/19 10/24/19 11:59 11:59 11:59 Intake Total 1000 Balance 1000 Weight 48.8 kg General appearance: PRESENT: no acute distress, thin, well-developed, other - Temporal wasting, chronically ill-appearing. ABSENT: cooperative Head exam: PRESENT: atraumatic, normocephalic Eye exam: PRESENT: conjunctiva pink, EOMI, PERRLA. ABSENT: scleral icterus Ear exam: PRESENT: normal external ear exam Mouth exam: PRESENT: moist, tongue midline Neck exam: ABSENT: carotid bruit, JVD, lymphadenopathy, thyromegaly Respiratory exam: PRESENT: clear to auscultation dinora. ABSENT: rales, rhonchi, wheezes Cardiovascular exam: PRESENT: RRR. ABSENT: diastolic murmur, rubs, systolic murmur Pulses: PRESENT: normal dorsalis pedis pul Vascular exam: PRESENT: normal capillary refill GI/Abdominal exam: PRESENT: normal bowel sounds, soft. ABSENT: distended, guarding, mass, organolmegaly, rebound, tenderness Rectal exam: PRESENT: deferred Extremities exam: PRESENT: full ROM. ABSENT: calf tenderness, clubbing, pedal edema Neurological exam: PRESENT: alert, awake, oriented to person, oriented to place, oriented to time, oriented to situation, CN II-XII grossly intact. ABSENT: motor sensory deficit Psychiatric exam: PRESENT: appropriate affect, normal mood. ABSENT: homicidal ideation, suicidal ideation Skin exam: PRESENT: dry, intact, warm. ABSENT: cyanosis, rash Results Laboratory Results: 10/24/19 05:49 10/23/19 21:15 10/23/19 10/23/19 10/23/19 21:15 21:15 21:15 WBC Cancelled RBC Cancelled Hgb Cancelled Hct Cancelled MCV Cancelled MCH Cancelled MCHC Cancelled RDW Cancelled Plt Count Cancelled Seg Neutrophils % Cancelled Sodium 140.2 Potassium 4.2 Chloride 104 Carbon Dioxide 24 Anion Gap 12 BUN 15 Creatinine 0.70 Est GFR ( Amer) > 60 Glucose 119 H Lactic Acid 1.5 Calcium 8.9 Urine Color Urine Appearance Urine pH Ur Specific [place] Urine Protein Urine Glucose (UA) Urine Ketones Urine Blood Urine Nitrite Ur Leukocyte Esterase Urine WBC (Auto) Urine RBC (Auto) 10/23/19 10/23/19 10/24/19 21:24 22:50 05:49 WBC 10.5 8.5 RBC 4.75 4.90 Hgb 13.9 14.3 Hct 40.0 41.4 MCV 84 85 MCH 29.2 29.2 MCHC 34.7 34.6 RDW 13.9 14.3 H Plt Count 304 320 Seg Neutrophils % 75.2 73.1 Sodium Potassium Chloride Carbon Dioxide Anion Gap BUN Creatinine Est GFR ( Amer) Glucose Lactic Acid Calcium Urine Color YELLOW Urine Appearance SLIGHTLY-CLOUDY Urine pH 7.0 Ur Specific [place] 1.019 Urine Protein 30 H Urine Glucose (UA) 50 H Urine Ketones 20 H Urine Blood NEGATIVE Urine Nitrite NEGATIVE Ur Leukocyte Esterase NEGATIVE Urine WBC (Auto) 6 Urine RBC (Auto) 7 Impressions: Chest X-Ray 10/23/19 21:02 IMPRESSION: No evidence of active intrathoracic disease. Assessment and Plan - Diagnosis (1) Aspiration pneumonitis Is this a current diagnosis for this admission?: Yes Plan: Likely intermittent, speech therapy consult initiated though vastly complicated by underlying dementia, deafness and [place]ian-speaking only. (2) DNR (do not resuscitate) Is this a current diagnosis for this admission?: Yes Plan: Verified by the record (3) Dementia Qualifiers: Dementia type: unspecified type Dementia behavioral disturbance: with behavioral disturbance Qualified Code(s): F03.91 - Unspecified dementia with behavioral disturbance Is this a current diagnosis for this admission?: Yes Plan: Discharge planning consult, supportive care, hospice consulted (4) Type 2 diabetes mellitus Qualifiers: Diabetes mellitus complication status: with unspecified complications Is this a current diagnosis for this admission?: Yes Plan: Patient with advanced dementia and aspirating will not benefit from tight glycemic control - Time Time Spent with patient: 25-34 minutes
[2019-10-24 08:18] LABS: BLOOD UREA NITROGEN 14 mg/dL (7-20); CALCIUM 8.1 mg/dL (8.4-10.2); GLUCOSE 123 mg/dL (75-110)
[2019-10-24 08:19] LABS: ALBUMIN 2.9 g/dL (3.5-5.0); ALKALINE PHOSPHATASE 110 U/L (38-126); ANION GAP 11 (5-19); ASPARTATE AMINO TRANSFERASE 44 U/L (17-59); BILIRUBIN,DIRECT 0.4 mg/dL (0.0-0.4); CARBON DIOXIDE 19 mmol/L (22-30); CHLORIDE 109 mmol/L (98-107); POTASSIUM 4.1 mmol/L (3.6-5.0)
--- NOTE | 2019-10-24 11:26 | PDOC PROGRESS REPORT ---
Subjective Progress Note for:: 10/24/19 Subjective:: 89 year old Polish-speaking male with a past medical history of difficulty hearing, type 2 diabetes, CKD, hypertension, GERD, dementia with aspiration, discharged 6 hours ago following an episode of aspiration pneumonitis. Patient returns to the emergency department as there is misunderstanding about the patient's disposition with his son and the primary caregiver. Patient's CODE STATUS is verified to be DNR/DNI. Patient is interviewed in Polish but appears disinterested to interact. However he is awake and alert he is in no acute distress he is lying flat without fever, tachycardia, hyper or hypotension, with oxygen saturations of 95% on room air. Discharge planning and speech therapy consult ordered. 10/[id number]-obry-old male with history of dementia, type 2 diabetes mellitus, CKD, hypertension, gastroparesis reflux disease, recent admission for possible aspiration pneumonia aspiration pneumonitis. Was brought to the back was brought back to the hospital because son does not want her dad at home with hospice care. He wants treatment for aspiration pneumonia. Speech evaluation done in the prior admission the recommending nectar thickened liquids to give by syringe. And is in bed demented barely communicating. Reason For Visit: DNR,DNI,ASP PNEUMONIA Physical Exam Vital Signs: Temp Pulse Resp BP Pulse Ox 98.4 F 80 18 161/65 H 95 10/24/19 07:10 10/24/19 07:10 10/24/19 07:10 10/24/19 07:10 10/24/19 07:10 Intake & Output 10/23/19 10/24/19 10/25/19 06:59 06:59 06:59 Intake Total 1000 Balance 1000 Weight 48.8 kg General appearance: PRESENT: disheveled, thin, other - Unable to communicate Head exam: PRESENT: atraumatic Eye exam: PRESENT: PERRLA Mouth exam: PRESENT: moist, tongue midline Teeth exam: PRESENT: poor dentation Neck exam: ABSENT: carotid bruit, JVD, lymphadenopathy, thyromegaly Respiratory exam: PRESENT: decreased breath sounds Cardiovascular exam: PRESENT: tachycardia GI/Abdominal exam: PRESENT: normal bowel sounds, soft. ABSENT: distended, guarding, mass, organolmegaly, rebound, tenderness Extremities exam: PRESENT: full ROM. ABSENT: calf tenderness, clubbing, pedal edema Neurological exam: PRESENT: alert, awake, oriented to person, oriented to place, oriented to time, oriented to situation, CN II-XII grossly intact. ABSENT: motor sensory deficit Psychiatric exam: PRESENT: appropriate affect, normal mood. ABSENT: homicidal ideation, suicidal ideation Skin exam: PRESENT: dry, intact, warm. ABSENT: cyanosis, rash Results Laboratory Results: 10/24/19 05:49 10/24/19 05:49 10/23/19 10/23/19 10/23/19 21:15 21:15 21:15 WBC Cancelled RBC Cancelled Hgb Cancelled Hct Cancelled MCV Cancelled MCH Cancelled MCHC Cancelled RDW Cancelled Plt Count Cancelled Seg Neutrophils % Cancelled Sodium 140.2 Potassium 4.2 Chloride 104 Carbon Dioxide 24 Anion Gap 12 BUN 15 Creatinine 0.70 Est GFR ( Amer) > 60 Glucose 119 H Lactic Acid 1.5 Calcium 8.9 Magnesium Total Bilirubin AST Alkaline Phosphatase Total Protein Albumin Urine Color Urine Appearance Urine pH Ur Specific [place] Urine Protein Urine Glucose (UA) Urine Ketones Urine Blood Urine Nitrite Ur Leukocyte Esterase Urine WBC (Auto) Urine RBC (Auto) 10/23/19 10/23/19 10/24/19 21:24 22:50 05:49 WBC 10.5 8.5 RBC 4.75 4.90 Hgb 13.9 14.3 Hct 40.0 41.4 MCV 84 85 MCH 29.2 29.2 MCHC 34.7 34.6 RDW 13.9 14.3 H Plt Count 304 320 Seg Neutrophils % 75.2 73.1 Sodium Potassium Chloride Carbon Dioxide Anion Gap BUN Creatinine Est GFR ( Amer) Glucose Lactic Acid Calcium Magnesium Total Bilirubin AST Alkaline Phosphatase Total Protein Albumin Urine Color YELLOW Urine Appearance SLIGHTLY-CLOUDY Urine pH 7.0 Ur Specific [place] 1.019 Urine Protein 30 H Urine Glucose (UA) 50 H Urine Ketones 20 H Urine Blood NEGATIVE Urine Nitrite NEGATIVE Ur Leukocyte Esterase NEGATIVE Urine WBC (Auto) 6 Urine RBC (Auto) 7 10/24/19 05:49 WBC RBC Hgb Hct MCV MCH MCHC RDW Plt Count Seg Neutrophils % Sodium 139.4 Potassium 4.1 Chloride 109 H Carbon Dioxide 19 L Anion Gap 11 BUN 14 Creatinine 0.63 Est GFR ( Amer) > 60 Glucose 123 H Lactic Acid Calcium 8.1 L Magnesium 2.3 Total Bilirubin 1.0 AST 44 Alkaline Phosphatase 110 Total Protein 6.0 L Albumin 2.9 L Urine Color Urine Appearance Urine pH Ur Specific [place] Urine Protein Urine Glucose (UA) Urine Ketones Urine Blood Urine Nitrite Ur Leukocyte Esterase Urine WBC (Auto) Urine RBC (Auto) Impressions: Chest X-Ray 10/23/19 21:02 IMPRESSION: No evidence of active intrathoracic disease. Assessment and Plan - Diagnosis (1) Aspiration pneumonitis Is this a current diagnosis for this admission?: Yes Plan: Likely intermittent, speech therapy consult initiated though vastly complicated by underlying dementia, deafness and Polish-speaking only. 10/24/2019-as per speech therapy recommendations patient is going to be on nectar thickened liquids to give via syringe. Patient is going to receive IV Unasyn for aspiration pneumonia. (2) Dementia Qualifiers: Dementia type: unspecified type Dementia behavioral disturbance: with beha vioral disturbance Qualified Code(s): F03.91 - Unspecified dementia with behavioral disturbance Is this a current diagnosis for this admission?: Yes Plan: Discharge planning consult, supportive care, hospice consulted (3) Type 2 diabetes mellitus Qualifiers: Diabetes mellitus complication status: with unspecified complications Is this a current diagnosis for this admission?: No Plan: Patient with advanced dementia and aspirating will not benefit from tight glycemic control (4) DNR (do not resuscitate) Is this a current diagnosis for this admission?: No Plan: Verified by the record
[2019-10-25] MEDS: IPRATROPIUM/ALBUTEROL 0.5-2.5 MG/3 ML AMPUL NEB SCH ×4 (00:14→23:45)
[2019-10-25] MEDS: HEPARIN SOD (PORCINE) 5,000 UNIT/ML 1 ML VIAL SUBCUT SCH ×3 (05:11→21:22)
[2019-10-25 07:09] LABS: ABSOLUTE BASOPHILS # (AUTO) 0.1 10^3/uL (0.0-0.2); ABSOLUTE EOSINOPHILS # (AUTO) 0.1 10^3/uL (0.0-0.6); ABSOLUTE LYMPHOCYTES (AUTO) 1.3 10^3/uL (0.5-4.7); ABSOLUTE MONOCYTES (AUTO) 0.7 10^3/uL (0.1-1.4); ABSOLUTE NEUT (AUTO) 6.4 10^3/uL (1.7-8.2); BASOPHILS % (AUTO) 0.7 % (0-2); EOSINOPHILS % (AUTO) 1.1 % (0-6); HEMATOCRIT 42.1 % (37.9-51.0); HEMOGLOBIN 14.5 g/dL (13.5-17.0); LYMPHOCYTES % (AUTO) 15.5 % (13-45); MEAN CORPUSCULAR HEMOGLOBIN 28.9 pg (27.0-33.4); MEAN CORPUSCULAR HGB CONC 34.5 g/dL (32.0-36.0); MEAN CORPUSCULAR VOLUME 84 fl (80-97); MONOCYTES % (AUTO) 8.4 % (3-13); PLATELET COUNT 296 10^3/uL (150-450); RED BLOOD COUNT 5.02 10^6/uL (4.35-5.55); RED CELL DISTRIBUTION WIDTH 13.9 % (11.5-14.0); SEGMENTED NEUTROPHILS % (AUTO) 74.3 % (42-78); TOTAL CELLS COUNTED % (AUTO) 100 %; WHITE BLOOD COUNT 8.6 10^3/uL (4.0-10.5)
[2019-10-25 07:35] LABS: ALBUMIN 3.1 g/dL (3.5-5.0); ALKALINE PHOSPHATASE 107 U/L (38-126); ANION GAP 12 (5-19); ASPARTATE AMINO TRANSFERASE 40 U/L (17-59); BILIRUBIN,DIRECT 0.1 mg/dL (0.0-0.4); BILIRUBIN,TOTAL 0.8 mg/dL (0.2-1.3); BLOOD UREA NITROGEN 15 mg/dL (7-20); CALCIUM 8.4 mg/dL (8.4-10.2); CARBON DIOXIDE 21 mmol/L (22-30); CHLORIDE 106 mmol/L (98-107); GLUCOSE 135 mg/dL (75-110); POTASSIUM 3.9 mmol/L (3.6-5.0); TOTAL PROTEIN 5.8 g/dL (6.3-8.2)
--- NOTE | 2019-10-25 08:37 | PDOC PROGRESS REPORT ---
Subjective Progress Note for:: 10/25/19 Subjective:: 89 year old Tristanian-speaking male with a past medical history of difficulty hearing, type 2 diabetes, CKD, hypertension, GERD, dementia with aspiration, discharged 6 hours ago following an episode of aspiration pneumonitis. Patient returns to the emergency department as there is misunderstanding about the patient's disposition with his son and the primary caregiver. Patient's CODE STATUS is verified to be DNR/DNI. Patient is interviewed in Tristanian but appears disinterested to interact. However he is awake and alert he is in no acute distress he is lying flat without fever, tachycardia, hyper or hypotension, with oxygen saturations of 95% on room air. Discharge planning and speech therapy consult ordered. 10/[id number]-[id number]-old male with history of dementia, type 2 diabetes mellitus, CKD, hypertension, gastroparesis reflux disease, recent admission for possible aspiration pneumonia aspiration pneumonitis. Was brought to the back was brought back to the hospital because son does not want her dad at home with hospice care. He wants treatment for aspiration pneumonia. Speech evaluation done in the prior admission the recommending nectar thickened liquids to give by syringe. And is in bed demented barely communicating. 10/25/2019-no acute events in the last 24 hours. Afebrile. WBC count is 8.6. Receiving nectar thickened liquids with syringe. Continue Unasyn. Case was discussed with patient's son and update was given. Reason For Visit: DNR,DNI,ASP PNEUMONIA Physical Exam Vital Signs: Temp Pulse Resp BP Pulse Ox 97.3 F 94 16 155/69 H 93 10/25/19 00:00 10/25/19 00:18 10/25/19 00:18 10/25/19 00:00 10/25/19 00:18 Intake & Output 10/24/19 10/25/19 10/26/19 06:59 06:59 06:59 Intake Total 1000 0 Balance 1000 0 Weight 48.8 kg 47.7 kg General appearance: PRESENT: disheveled, thin Head exam: PRESENT: atraumatic Eye exam: PRESENT: PERRLA Mouth exam: PRESENT: neck supple Teeth exam: PRESENT: edentulous Neck exam: ABSENT: carotid bruit, JVD, lymphadenopathy, thyromegaly Respiratory exam: PRESENT: decreased breath sounds Cardiovascular exam: PRESENT: RRR. ABSENT: diastolic murmur, rubs, systolic murmur GI/Abdominal exam: PRESENT: normal bowel sounds, soft. ABSENT: distended, guarding, mass, organolmegaly, rebound, tenderness Rectal exam: PRESENT: deferred Extremities exam: PRESENT: full ROM. ABSENT: calf tenderness, clubbing, pedal edema Neurological exam: PRESENT: alert, awake, oriented to person, oriented to place, oriented to time, oriented to situation, CN II-XII grossly intact. ABSENT: motor sensory deficit Psychiatric exam: PRESENT: appropriate affect, normal mood. ABSENT: homicidal ideation, suicidal ideation Results Laboratory Results: 10/25/19 06:25 10/25/19 06:25 10/24/19 10/25/19 10/25/19 05:49 06:25 06:25 WBC 8.6 RBC 5.02 Hgb 14.5 Hct 42.1 MCV 84 MCH 28.9 MCHC 34.5 RDW 13.9 Plt Count 296 Seg Neutrophils % 74.3 Sodium 139.4 138.7 Potassium 4.1 3.9 Chloride 109 H 106 Carbon Dioxide 19 L 21 L Anion Gap 11 12 BUN 14 15 Creatinine 0.63 0.73 Est GFR ( Amer) > 60 > 60 Glucose 123 H 135 H Calcium 8.1 L 8.4 Magnesium 2.3 2.3 Total Bilirubin 1.0 0.8 AST 44 40 Alkaline Phosphatase 110 107 Total Protein 6.0 L 5.8 L Albumin 2.9 L 3.1 L Impressions: Chest X-Ray 10/23/19 21:02 IMPRESSION: No evidence of active intrathoracic disease. Assessment and Plan - Diagnosis (1) Aspiration pneumonitis Is this a current diagnosis for this admission?: Yes Plan: Likely intermittent, speech therapy consult initiated though vastly complicated by underlying dementia, deafness and Tristanian-speaking only. 10/24/2019-as per speech therapy recommendations patient is going to be on nectar thickened liquids to give via syringe. Patient is going to receive IV Unasyn for aspiration pneumonia. 10/25/19-patient is on nectar thickened liquids via syringe. Chest x-ray on admission negative for aspiration pneumonia afebrile WBC count and within normal limits. Plan is to continue Unasyn at least next for 5 days. Patient's son is not interested in hospice care. At this time family does not want any feeding tube. Patient CODE STATUS is DNR/DNI. Blood cultures and urine cultures are negative so far. (2) Dementia Qualifiers: Dementia type: unspecified type Dementia behavioral disturbance: with behavioral disturbance Qualified Code(s): F03.91 - Unspecified dementia with behavioral disturbance Is this a current diagnosis for this admission?: Yes Plan: Discharge planning consult, supportive care, hospice consulted (3) Type 2 diabetes mellitus Qualifiers: Diabetes mellitus complication status: with unspecified complications Is this a current diagnosis for this admission?: No Plan: Patient with advanced dementia and aspirating will not benefit from tight glycemic control (4) DNR (do not resuscitate) Is this a current diagnosis for this admission?: No
[2019-10-25] MEDS: AMPICILLIN SODIUM/SULBACTAM NA 3 GM in NORMAL SALINE 100 ML IV SCH ×2 (11:08→17:33)
[2019-10-25] MEDS ORDERED: AMPICILLIN SOD/SULBACTAM 3 GM VIAL IV SCH (14:00)
[2019-10-25] MEDS ORDERED: KETOROLAC TROMETHAMINE INJ/PF 30 MG/1 ML SDV IV PRN (23:18)
[2019-10-26] MEDS: AMPICILLIN SODIUM/SULBACTAM NA 3 GM in NORMAL SALINE 100 ML IV SCH ×3 (01:41→18:02)
[2019-10-26] MEDS: HEPARIN SOD (PORCINE) 5,000 UNIT/ML 1 ML VIAL SUBCUT SCH ×3 (05:33→21:45)
[2019-10-26] MEDS: IPRATROPIUM/ALBUTEROL 0.5-2.5 MG/3 ML AMPUL NEB SCH ×3 (07:27→23:50)
[2019-10-26 08:04] LABS: ABSOLUTE EOSINOPHILS # (AUTO) 0.1 10^3/uL (0.0-0.6); ABSOLUTE MONOCYTES (AUTO) 1.3 10^3/uL (0.1-1.4); ABSOLUTE NEUT (AUTO) 10.1 10^3/uL (1.7-8.2); BASOPHILS % (AUTO) 0.3 % (0-2); EOSINOPHILS % (AUTO) 0.4 % (0-6); HEMATOCRIT 45.5 % (37.9-51.0); HEMOGLOBIN 15.2 g/dL (13.5-17.0); LYMPHOCYTES % (AUTO) 8.1 % (13-45); MEAN CORPUSCULAR HEMOGLOBIN 28.3 pg (27.0-33.4); MEAN CORPUSCULAR HGB CONC 33.3 g/dL (32.0-36.0); MEAN CORPUSCULAR VOLUME 85 fl (80-97); MONOCYTES % (AUTO) 10.1 % (3-13); PLATELET COUNT 334 10^3/uL (150-450); RED BLOOD COUNT 5.35 10^6/uL (4.35-5.55); RED CELL DISTRIBUTION WIDTH 13.8 % (11.5-14.0); SEGMENTED NEUTROPHILS % (AUTO) 81.1 % (42-78); TOTAL CELLS COUNTED % (AUTO) 100 %; WHITE BLOOD COUNT 12.5 10^3/uL (4.0-10.5)
[2019-10-26 08:21] LABS: ALBUMIN 3.2 g/dL (3.5-5.0); ALKALINE PHOSPHATASE 113 U/L (38-126); ANION GAP 13 (5-19); ASPARTATE AMINO TRANSFERASE 41 U/L (17-59); BILIRUBIN,DIRECT 0.2 mg/dL (0.0-0.4); BILIRUBIN,TOTAL 0.9 mg/dL (0.2-1.3); BLOOD UREA NITROGEN 12 mg/dL (7-20); CALCIUM 8.7 mg/dL (8.4-10.2); CARBON DIOXIDE 21 mmol/L (22-30); CHLORIDE 106 mmol/L (98-107); GLUCOSE 135 mg/dL (75-110); POTASSIUM 4.4 mmol/L (3.6-5.0); TOTAL PROTEIN 6.3 g/dL (6.3-8.2)
--- NOTE | 2019-10-26 09:09 | PDOC PROGRESS REPORT ---
Subjective Progress Note for:: 10/26/19 Subjective:: 89 year old Wolof-speaking male with a past medical history of difficulty hearing, type 2 diabetes, CKD, hypertension, GERD, dementia with aspiration, discharged 6 hours ago following an episode of aspiration pneumonitis. Patient returns to the emergency department as there is misunderstanding about the patient's disposition with his son and the primary caregiver. Patient's CODE STATUS is verified to be DNR/DNI. Patient is interviewed in Wolof but appears disinterested to interact. However he is awake and alert he is in no acute distress he is lying flat without fever, tachycardia, hyper or hypotension, with oxygen saturations of 95% on room air. Discharge planning and speech therapy consult ordered. 10/[id number]-ihlz-old male with history of dementia, type 2 diabetes mellitus, CKD, hypertension, gastroparesis reflux disease, recent admission for possible aspiration pneumonia aspiration pneumonitis. Was brought to the back was brought back to the hospital because son does not want her dad at home with hospice care. He wants treatment for aspiration pneumonia. Speech evaluation done in the prior admission the recommending nectar thickened liquids to give by syringe. And is in bed demented barely communicating. 10/25/2019-no acute events in the last 24 hours. Afebrile. WBC count is 8.6. Receiving nectar thickened liquids with syringe. Continue Unasyn. Case was discussed with patient's son and update was given. 10/26/2019-speech therapy speak to me today to restart him on a nectar thickened liquids to give by syringe. Patient is getting antibiotic therapy Unasyn for presumed aspiration pneumonia. CODE STATUS is DNR/DNI, family do not want PEG tube. Reason For Visit: DNR,DNI,ASP PNEUMONIA Physical Exam Vital Signs: Temp Pulse Resp BP Pulse Ox 97.5 F 93 12 155/67 H 96 10/26/19 04:09 10/26/19 07:27 10/26/19 07:27 10/26/19 04:09 10/26/19 07:27 Intake & Output 10/25/19 10/26/19 10/27/19 06:59 06:59 06:59 Intake Total 0 300 Balance 0 300 Weight 47.7 kg 48 kg General appearance: PRESENT: no acute distress, disheveled, thin Eye exam: PRESENT: PERRLA Mouth exam: PRESENT: moist, tongue midline Teeth exam: PRESENT: poor dentation Neck exam: ABSENT: carotid bruit, JVD, lymphadenopathy, thyromegaly Respiratory exam: PRESENT: decreased breath sounds Cardiovascular exam: PRESENT: RRR. ABSENT: diastolic murmur, rubs, systolic murmur GI/Abdominal exam: PRESENT: normal bowel sounds, soft. ABSENT: distended, guarding, mass, organolmegaly, rebound, tenderness Rectal exam: PRESENT: deferred Extremities exam: PRESENT: full ROM. ABSENT: calf tenderness, clubbing, pedal edema Neurological exam: PRESENT: alert, awake Results Laboratory Results: 10/26/19 07:16 10/26/19 07:16 10/26/19 10/26/19 07:16 07:16 WBC 12.5 H RBC 5.35 Hgb 15.2 Hct 45.5 MCV 85 MCH 28.3 MCHC 33.3 RDW 13.8 Plt Count 334 Seg Neutrophils % 81.1 H Sodium 139.7 Potassium 4.4 Chloride 106 Carbon Dioxide 21 L Anion Gap 13 BUN 12 Creatinine 0.69 Est GFR ( Amer) > 60 Glucose 135 H Calcium 8.7 Magnesium 2.4 H Total Bilirubin 0.9 AST 41 Alkaline Phosphatase 113 Total Protein 6.3 Albumin 3.2 L 10/23/19 21:24 Catheterized Urine Urine Culture - Final NO GROWTH 2 DAYS Impressions: Chest X-Ray 10/23/19 21:02 IMPRESSION: No evidence of active intrathoracic disease. Assessment and Plan - Diagnosis (1) Aspiration pneumonitis Is this a current diagnosis for this admission?: Yes Plan: Likely intermittent, speech therapy consult initiated though vastly complicated by underlying dementia, deafness and Wolof-speaking only. 10/24/2019-as per speech therapy recommendations patient is going to be on nectar thickened liquids to give via syringe. Patient is going to receive IV Unasyn fo r aspiration pneumonia. 10/25/19-patient is on nectar thickened liquids via syringe. Chest x-ray on admission negative for aspiration pneumonia afebrile WBC count and within normal limits. Plan is to continue Unasyn at least next for 5 days. Patient's son is not interested in hospice care. At this time family does not want any feeding tube. Patient CODE STATUS is DNR/DNI. Blood cultures and urine cultures are negative so far. 10/26/2019-feeding was stopped last night last night and nurses concerned about his aspiration status speech evaluation was done again today recommendation is nectar thickened liquids with a syringe. Family do not want a feeding tube at this time. CODE STATUS is DNR. Patient is receiving IV Unasyn at this time cultures are negative so far. (2) Dementia Qualifiers: Dementia type: unspecified type Dementia behavioral disturbance: with behavioral disturbance Qualified Code(s): F03.91 - Unspecified dementia with behavioral disturbance Is this a current diagnosis for this admission?: Yes Plan: Discharge planning consult, supportive care, hospice consulted (3) Type 2 diabetes mellitus Qualifiers: Diabetes mellitus complication status: with unspecified complications Is this a current diagnosis for this admission?: No Plan: Patient with advanced dementia and aspirating will not benefit from tight glyc emic control (4) DNR (do not resuscitate) Is this a current diagnosis for this admission?: No
[2019-10-27] MEDS: AMPICILLIN SODIUM/SULBACTAM NA 3 GM in NORMAL SALINE 100 ML IV SCH ×3 (02:01→17:25)
[2019-10-27] MEDS: HEPARIN SOD (PORCINE) 5,000 UNIT/ML 1 ML VIAL SUBCUT SCH ×3 (05:23→21:45)
[2019-10-27] MEDS: IPRATROPIUM/ALBUTEROL 0.5-2.5 MG/3 ML AMPUL NEB SCH ×2 (08:50→16:12)
--- NOTE | 2019-10-27 11:46 | PDOC PROGRESS REPORT ---
Subjective Progress Note for:: 10/27/19 Subjective:: Patient seen and examined. Chart reviewed Reason For Visit: DNR,DNI,ASP PNEUMONIA Physical Exam Vital Signs: Temp Pulse Resp BP Pulse Ox 98.4 F 104 H 18 171/79 H 96 10/27/19 02:00 10/27/19 02:00 10/27/19 02:00 10/27/19 02:00 10/27/19 02:00 Intake & Output 10/26/19 10/27/19 10/28/19 06:59 06:59 06:59 Intake Total 300 380 Balance 300 380 Weight 48 kg 48 kg General appearance: PRESENT: no acute distress Neck exam: ABSENT: JVD, tenderness Respiratory exam: PRESENT: rhonchi, unlabored Cardiovascular exam: PRESENT: RRR, +S1, +S2 GI/Abdominal exam: PRESENT: soft. ABSENT: tenderness Rectal exam: PRESENT: deferred Extremities exam: ABSENT: tenderness Musculoskeletal exam: PRESENT: other - contracted Neurological exam: PRESENT: awake, other - non verbal Results Laboratory Results: 10/26/19 07:16 10/26/19 07:16 Impressions: Chest X-Ray 10/23/19 21:02 IMPRESSION: No evidence of active intrathoracic disease. Assessment and Plan - Diagnosis (1) Aspiration pneumonitis Is this a current diagnosis for this admission?: Yes Plan: Likely intermittent, speech therapy consult initiated though vastly complicated by underlying dementia, deafness and [place]-speaking only. 10/24/2019-as per speech therapy recommendations patient is going to be on nectar thickened liquids to give via syringe. Patient is going to receive IV Unasyn fo r aspiration pneumonia. 10/25/19-patient is on nectar thickened liquids via syringe. Chest x-ray on admission negative for aspiration pneumonia afebrile WBC count and within normal limits. Plan is to continue Unasyn at least next for 5 days. Patient's son is not interested in hospice care. At this time family does not want any feeding tube. Patient CODE STATUS is DNR/DNI. Blood cultures and urine cultures are negative so far. 10/26/2019-feeding was stopped last night last night and nurses concerned about his aspiration status speech evaluation was done again today recommendation is nectar thickened liquids with a syringe. Family do not want a feeding tube at this time. CODE STATUS is DNR. Patient is receiving IV Unasyn at this time cultures are negative so far. 10/26 Day 4 of 7 on Unasyn Plan is to complete IV treatment due to patient's status and dc home (2) DNR (do not resuscitate) Is this a current diagnosis for this admission?: No Plan: Verified by the record (4) Dementia Qualifiers: Dementia type: unspecified type Dementia behavioral disturbance: with behavioral disturbance Qualified Code(s): F03.91 - Unspecified dementia with behavioral disturbance Is this a current diagnosis for this admission?: Yes Plan: Discharge planning consult, supportive care, hospice consulted but family decline hospice (5) Severe protein-calorie malnutrition Is this a current diagnosis for this admission?: Yes Plan: Follow nutrition recommendations
[2019-10-28] MEDS: IPRATROPIUM/ALBUTEROL 0.5-2.5 MG/3 ML AMPUL NEB SCH ×4 (00:12→23:50)
[2019-10-28] MEDS: AMPICILLIN SODIUM/SULBACTAM NA 3 GM in NORMAL SALINE 100 ML IV SCH ×3 (02:04→17:00)
[2019-10-28] MEDS: HYDRALAZINE HCL INJ/PF 20 MG/1 ML SDV IV PRN (02:04)
[2019-10-28] MEDS: HEPARIN SOD (PORCINE) 5,000 UNIT/ML 1 ML VIAL SUBCUT SCH ×3 (05:33→21:19)
[2019-10-29 04:37] LABS: ABSOLUTE LYMPHOCYTES (AUTO) 1.2 10^3/uL (0.5-4.7); ABSOLUTE MONOCYTES (AUTO) 0.8 10^3/uL (0.1-1.4); ABSOLUTE NEUT (AUTO) 6.9 10^3/uL (1.7-8.2); BASOPHILS % (AUTO) 0.4 % (0-2); EOSINOPHILS % (AUTO) 0.5 % (0-6); HEMATOCRIT 42.2 % (37.9-51.0); HEMOGLOBIN 14.5 g/dL (13.5-17.0); LYMPHOCYTES % (AUTO) 13.2 % (13-45); MEAN CORPUSCULAR HGB CONC 34.5 g/dL (32.0-36.0); MEAN CORPUSCULAR VOLUME 84 fl (80-97); MONOCYTES % (AUTO) 8.5 % (3-13); PLATELET COUNT 299 10^3/uL (150-450); RED CELL DISTRIBUTION WIDTH 14.5 % (11.5-14.0); SEGMENTED NEUTROPHILS % (AUTO) 77.4 % (42-78); TOTAL CELLS COUNTED % (AUTO) 100 %
[2019-10-29 04:56] LABS: ANION GAP 11 (5-19); BLOOD UREA NITROGEN 12 mg/dL (7-20); CALCIUM 8.8 mg/dL (8.4-10.2); CARBON DIOXIDE 22 mmol/L (22-30); CHLORIDE 113 mmol/L (98-107); GLUCOSE 172 mg/dL (75-110); POTASSIUM 3.4 mmol/L (3.6-5.0)
[2019-10-29] MEDS: AMPICILLIN SODIUM/SULBACTAM NA 3 GM in NORMAL SALINE 100 ML IV SCH ×3 (05:10→17:20)
[2019-10-29] MEDS: HEPARIN SOD (PORCINE) 5,000 UNIT/ML 1 ML VIAL SUBCUT SCH ×2 (05:10→15:14)
[2019-10-29] MEDS: HYDRALAZINE HCL INJ/PF 20 MG/1 ML SDV IV PRN (05:14)
[2019-10-29] MEDS: IPRATROPIUM/ALBUTEROL 0.5-2.5 MG/3 ML AMPUL NEB SCH ×2 (07:59→16:27)
[2019-10-29] MEDS ORDERED: POTASSI CL 20 MEQ/1/2NS 1L 20 MEQ/1,000 ML RTUINJ IV PRN (08:40)
[2019-10-29] MEDS ORDERED: BISACODYL 10 MG SUPP.RECT PR ONE (15:30)
--- NOTE | 2019-10-29 15:30 | PDOC PROGRESS REPORT ---
Subjective Progress Note for:: 10/28/19 Subjective:: Patient seen and examined. Chart reviewed No new plans Discussed with his son, updated on his condition Plan is to complete antibiotics on 10/28 and dc patient home thereafter Reason For Visit: DNR,DNI,ASP PNEUMONIA Physical Exam Vital Signs: Temp Pulse Resp BP Pulse Ox 97.6 F 96 19 151/70 H 97 10/28/19 11:32 10/28/19 11:32 10/28/19 11:32 10/28/19 11:32 10/28/19 11:32 Intake & Output 10/27/19 10/28/19 10/29/19 06:59 06:59 06:59 Intake Total 380 300 100 Balance 380 300 100 Weight 48 kg 48 kg General appearance: PRESENT: no acute distress, other - Elderly and frail Head exam: PRESENT: atraumatic Mouth exam: PRESENT: dry mucosa Respiratory exam: PRESENT: rhonchi Cardiovascular exam: PRESENT: +S1, +S2 Results Laboratory Results: 10/26/19 07:16 10/26/19 07:16 Impressions: Chest X-Ray 10/23/19 21:02 IMPRESSION: No evidence of active intrathoracic disease. Assessment and Plan - Diagnosis (1) Aspiration pneumonitis Is this a current diagnosis for this admission?: Yes (2) DNR (do not resuscitate) Is this a current diagnosis for this admission?: No (4) Dementia Qualifiers: Dementia type: unspecified type Dementia behavioral disturbance: with behavioral disturbance Qualified Code(s): F03.91 - Unspecified dementia with behavioral disturbance Is this a current diagnosis for this admission?: Yes (5) Severe protein-calorie malnutrition Is this a current diagnosis for this admission?: Yes - Plan Summary Summary: Plan is to finish up with IV antibiotics and discharge patient home. He is day 6 of 7 at this time Patient's prognosis is pretty poor
[2019-10-29 17:26] LABS: APPEARANCE,URINE SLIGHTLY-CLOUDY; BILIRUBIN,URINE NEGATIVE (NEGATIVE); COLOR,URINE YELLOW; GLUCOSE, URINE 50 mg/dL (NEGATIVE); KETONES,URINE TRACE mg/dL (NEGATIVE); PROTEIN,URINE 30 mg/dL (NEGATIVE); URINE SPECIFIC GRAVITY 1.027
[2019-10-29 17:39] VITALS: BP 171/71
--- NOTE | 2019-10-29 17:58 | PDOC DISCHARGE SUMMARY ---
Impression - Admit/DC Date/PCP Admission Date/Primary Care Provider: 10/23/19 22:38 VIRI HERNANDEZ MD Discharge Date: 10/29/19 - Discharge Diagnosis (1) Aspiration pneumonitis Is this a current diagnosis for this admission?: Yes (2) DNR (do not resuscitate) Is this a current diagnosis for this admission?: Yes (3) Dehydration Is this a current diagnosis for this admission?: Yes (4) Dementia Is this a current diagnosis for this admission?: Yes (5) Severe protein-calorie malnutrition Is this a current diagnosis for this admission?: Yes - Assessment Summary: Plan is to finish up with IV antibiotics and discharge patient home. He is day 6 of 7 at this time Patient's prognosis is pretty poor - Additional Information Resuscitation Status: Do Not Resuscitate Home Medications: Clopidogrel Bisulfate [Plavix 75 mg Tablet] 75 mg PO DAILY 10/08/16 Famotidine 20 mg PO BID 10/08/16 Donepezil HCl [Aricept 5 mg Tablet] 5 mg PO QHS 10/21/19 Amlodipine Besylate [Norvasc 5 mg Tablet] 5 mg PO Q12 10/24/19 Doxazosin Mesylate [Cardura 1 mg Tablet] 1 mg PO Q12 10/24/19 Glipizide [Glucotrol 5 mg Tablet] 2.5 mg PO DAILY 10/24/19 Latanoprost [Xalatan 0.005% Oph Soln 2.5 ml] 1 drop OU QHS 10/24/19 Timolol Maleate [Timoptic 0.5% Oph Soln 5 ml] 1 drop OU BID 10/24/19 History of Present Illiness History of Present Illness: MAGUI CABALLERO is a 89 year old male Patient presents to the emergency room after a short hospital stay from discharge. He was admitted for management of aspiration pneumonia. Please see admitting history and physical for full details. Hospital Course Hospital Course: Patient had just left the hospital a few hours prior to readmission. There appeared to have been a misunderstanding regarding patient's CODE STATUS. It was verified that patient was a DO NOT RESUSCITATE although not comfort care. Patient has dysphagia with underlying dementia. He was started on intravenous antibiotics which he completed a total of 7 days counting his previous hospitalization 10 20-10 22. Patient was treated with Unasyn. His oral intake was poor however no plans for any kind of tube feeding given patient's physical condition and poor prognosis and family refused. He received IV fluid prior to discharge and his potassium was replaced. Urinalysis was done which was negative for any acute infection. At this time patient has completed his course of antibiotics and his general prognosis and condition is very poor and is at very high risk for readmission. His son apparently takes care of him at home and is aware of his poor prognosis but wishes him to remain in this condition Physical Exam Vital Signs: Temp Pulse Resp BP Pulse Ox 97.9 F 110 H 16 166/68 H 97 10/29/19 11:03 10/29/19 11:03 10/29/19 11:03 10/29/19 11:03 10/29/19 11:03 Intake & Output 10/28/19 10/29/19 10/30/19 06:59 06:59 06:59 Intake Total 300 300 100 Balance 300 300 100 Weight 48 kg 46.3 kg General appearance: PRESENT: no acute distress, thin - elderly and frail Head exam: PRESENT: atraumatic Respiratory exam: PRESENT: decreased breath sounds, unlabored Cardiovascular exam: PRESENT: RRR, +S1, +S2 GI/Abdominal exam: PRESENT: normal bowel sounds Extremities exam: PRESENT: +1 edema Neurological exam: ABSENT: alert, altered, awake, oriented to person, oriented to place, oriented to time, oriented to situation, reflexes normal, abnormal gait, ataxia, CN II-XII grossly intact, motor sensory deficit, normal gait, aphasic, other Results Laboratory Results: WBC 9.0 10^3/uL (4.0-10.5) 10/29/19 04:13 RBC 5.00 10^6/uL (4.35-5.55) 10/29/19 04:13 Hgb 14.5 g/dL (13.5-17.0) 10/29/19 04:13 Hct 42.2 % (37.9-51.0) 10/29/19 04:13 MCV 84 fl (80-97) 10/29/19 04:13 MCH 29.0 pg (27.0-33.4) 10/29/19 04:13 MCHC 34.5 g/dL (32.0-36.0) 10/29/19 04:13 RDW 14.5 % (11.5-14.0) H 10/29/19 04:13 Plt Count 299 10^3/uL (150-450) 10/29/19 04:13 Lymph % (Auto) 13.2 % (13-45) 10/29/19 04:13 Cross % (Auto) 8.5 % (3-13) 10/29/19 04:13 Eos % (Auto) 0.5 % (0-6) 10/29/19 04:13 Baso % (Auto) 0.4 % (0-2) 10/29/19 04:13 Absolute Neuts (auto) 6.9 10^3/uL (1.7-8.2) 10/29/19 04:13 Absolute Lymphs (auto) 1.2 10^3/uL (0.5-4.7) 10/29/19 04:13 Absolute Monos (auto) 0.8 10^3/uL (0.1-1.4) 10/29/19 04:13 Absolute Eos (auto) 0.0 10^3/uL (0.0-0.6) 10/29/19 04:13 Absolute Basos (auto) 0.0 10^3/uL (0.0-0.2) 10/29/19 04:13 Seg Neutrophils % 77.4 % (42-78) 10/29/19 04:13 Platelet Estimate Cancelled 10/23/19 21:15 Sodium 146.0 mmol/L (137-145) H 10/29/19 04:13 Potassium 3.4 mmol/L (3.6-5.0) L 10/29/19 04:13 Chloride 113 mmol/L (98-107) H 10/29/19 04:13 Carbon Dioxide 22 mmol/L (22-30) 10/29/19 04:13 Anion Gap 11 (5-19) 10/29/19 04:13 BUN 12 mg/dL (7-20) 10/29/19 04:13 Creatinine 0.82 mg/dL (0.52-1.25) 10/29/19 04:13 Est GFR ( Amer) > 60 (>60) 10/29/19 04:13 Est GFR (MDRD) Non-Af > 60 (>60) 10/29/19 04:13 Glucose 172 mg/dL (75-110) H 10/29/19 04:13 Lactic Acid 1.5 mmol/L (0.7-2.1) 10/23/19 21:15 Calcium 8.8 mg/dL (8.4-10.2) 10/29/19 04:13 Magnesium 2.4 mg/dL (1.6-2.3) H 10/26/19 07:16 Total Bilirubin 0.9 mg/dL (0.2-1.3) 10/26/19 07:16 Direct Bilirubin 0.2 mg/dL (0.0-0.4) 10/26/19 07:16 Neonat Total Bilirubin Not Reportable 10/26/19 07:16 Neonat Direct Bilirubin Not Reportable 10/26/19 07:16 Neonat Indirect Bili Not Reportable 10/26/19 07:16 AST 41 U/L (17-59) 10/26/19 07:16 ALT 20 U/L (<50) 10/26/19 07:16 Alkaline Phosphatase 113 U/L (38-126) 10/26/19 07:16 Total Protein 6.3 g/dL (6.3-8.2) 10/26/19 07:16 Albumin 3.2 g/dL (3.5-5.0) L 10/26/19 07:16 Urine Color YELLOW 10/23/19 21:24 Urine Appearance SLIGHTLY-CLOUDY 10/23/19 21:24 Urine pH 7.0 (5.0-9.0) 10/23/19 21:24 Ur Specific [employer] 1.019 10/23/19 21:24 Urine Protein 30 mg/dL (NEGATIVE) H 10/23/19 21:24 Urine Glucose (UA) 50 mg/dL (NEGATIVE) H 10/23/19 21:24 Urine Ketones 20 mg/dL (NEGATIVE) H 10/23/19 21:24 Urine Blood NEGATIVE (NEGATIVE) 10/23/19 21:24 Urine Nitrite NEGATIVE (NEGATIVE) 10/23/19 21:24 Urine Bilirubin NEGATIVE (NEGATIVE) 10/23/19 21:24 Urine Urobilinogen 4.0 mg/dL (<2.0) H 10/23/19 21:24 Ur Leukocyte Esterase NEGATIVE (NEGATIVE) 10/23/19 21:24 Urine WBC (Auto) 6 /HPF 10/23/19 21:24 Urine RBC (Auto) 7 /HPF 10/23/19 21:24 U Hyaline Cast (Auto) 1 /LPF 10/23/19 21:24 Squamous Epi Cells Auto 1 /HPF 10/23/19 21:24 Urine Mucus (Auto) RARE /LPF 10/23/19 21:24 Urine Ascorbic Acid NEGATIVE (NEGATIVE) 10/23/19 21:24 Slides for Path Review Cancelled 10/23/19 21:15 Impressions: Chest X-Ray 10/23/19 21:02 IMPRESSION: No evidence of active intrathoracic disease. Plan Health Concerns: Very high risk for readmission and very poor prognosis with limited family understanding or acceptance of his condition Goals: SON TOLD NURSE HE WOULD SCHEDULE A FOLLOW APPT. Time Spent: Greater than 30 Minutes Stroke Is this a Stroke Patient?: No Acute Heart Failure - Is this a Heart Failure Patient?: No
[2019-10-29] MEDS ORDERED: FLUCONAZOLE 100 MG TABLET PO SCH (18:00)
[2019-10-29] MEDS ORDERED: NYSTATIN OINTMENT 15 GM TUBE TP SCH (18:00)
== END 2019-10-29 20:18 | disposition home or self-care (01) ==
LOC: ER 19:26 → 4N 22:38 → INTOOBSV 22:38
PROVIDERS: ADMIT Internal Medicine; ATTEND Internal Medicine
DX: J69.0 Pneumonitis due to inhalation of food and vomit (principal); Z66 Do not resuscitate; E86.0 Dehydration; F03.91 Unspecified dementia, unspecified severity, with behavioral disturbance; E43 Unspecified severe protein-calorie malnutrition; R13.10 Dysphagia, unspecified; E11.22 Type 2 diabetes mellitus with diabetic chronic kidney disease; I12.9 Hypertensive chronic kidney disease with stage 1 through stage 4 chronic kidney disease, or unspecified chronic kidney disease; N18.9 Chronic kidney disease, unspecified; E11.43 Type 2 diabetes mellitus with diabetic autonomic (poly)neuropathy; K31.84 Gastroparesis; K21.9 Gastro-esophageal reflux disease without esophagitis; R00.0 Tachycardia, unspecified; H91.90 Unspecified hearing loss, unspecified ear; Z79.899 Other long term (current) drug therapy; Z79.02 Long term (current) use of antithrombotics/antiplatelets; Z79.84 Long term (current) use of oral hypoglycemic drugs; Z86.73 Personal history of transient ischemic attack (TIA), and cerebral infarction without residual deficits
CPT/HCPCS: 99285; 96365; 36415 ×5; 87040; 87086; 83605; 83735 ×3; 85025 ×4; 80048; 80053 ×3; 81001 ×2; 71045; 94799 ×2; 94640 ×7; 92610; A9270 ×9; J1644 ×6; J3480; J0295 ×6; J0360 ×2; J1885; J3490 ×6; J7050 ×5; J7030; J7620

== ENCOUNTER 2019-11-01 01:23 | Emergency (ER) | payer MEDICARE ==
[2019-11-01] MEDS ORDERED: IPRATROPIUM/ALBUTEROL 0.5-2.5 MG/3 ML AMPUL NEB ONE (02:06)
--- NOTE | 2019-11-01 02:39 | ER Document Report ---
Entered by LOR SURESH SCRIBE 11/01/19 0154 Acting as scribe for:BRITTNEY PADGETT IV, MD ED General - General Stated Complaint: BREATHING DIFFICULTY Time Seen by Provider: 11/01/19 01:51 Primary Care Provider: VIRI HERNANDEZ MD [Primary Care Provider] - 11/02/19 Mode of Arrival: Medic Information source: Emergency Med Personnel Notes: This 89 year old male patient with a history of aspiration pneumonitis, type 2 diabetes, chronic kidney disease, and advanced dementia brought in by EMS presents to the ED today with complaints of dyspnea and chest congestion that began prior to arrival. Per ED nurse, the patient's son refused any medical intervention (IV, blood, labs) for the patient except for suctioning. Patient was admitted for similar symptoms on 10/23/2019 and was discharged on 11/01/19 with a diagnosis of aspiration pneumonitis, severe protein-calorie malnutrition, dehydration, and dementia. Patient's resuscitation status is DNR. ED nurse reports that the patient is nonverbal, hard of hearing, and [place]ian-speaking. TRAVEL OUTSIDE OF THE [place] IN LAST 30 DAYS: No - Related Data Allergies/Adverse Reactions: alprazolam [From Xanax] Allergy (Verified 10/21/19 07:21) brinzolamide [From Azopt] Allergy (Verified 10/21/19 07:21) levofloxacin [From Levaquin] Allergy (Verified 10/21/19 07:21) Sulfa (Sulfonamide Antibiotics) Allergy (Verified 10/21/19 07:21) grapes Allergy (Uncoded 10/21/19 07:21) peaches Allergy (Uncoded 10/21/19 07:21) Past Medical History - General Information source: Emergency Med Personnel, [facility] Records - Social History Smoking Status: Unknown if Ever Smoked Cigarette use (# per day): No Chew tobacco use (# tins/day): No Smoking Education Provided: No Frequency of alcohol use: None Drug Abuse: None Lives with: Family Family History: Reviewed & Not Pertinent Patient has suicidal ideation: No Patient has homicidal ideation: No - Past Medical History Cardiac Medical History: Reports: Hx Hypertension Neurological Medical History: Reports: Hx Cerebrovascular Accident Endocrine Medical History: Reports: Hx Diabetes Mellitus Type 2 - oral GI Medical History: Reports: Hx Gastroesophageal Reflux Disease Psychiatric Medical History: Reports: Hx Dementia Past Surgical History: Reports: Hx Abdominal Surgery - SBO, Hx Orthopedic Surgery - Immunizations Hx Diphtheria, Pertussis, Tetanus Vaccination: Yes Review of Systems - Review of Systems Constitutional: No symptoms reported EENT: No symptoms reported Cardiovascular: See HPI, Dyspnea Respiratory: See HPI, Other - Chest congestion Gastrointestinal: No symptoms reported Genitourinary: No symptoms reported Male Genitourinary: No symptoms reported Musculoskeletal: No symptoms reported Skin: No symptoms reported Hematologic/Lymphatic: No symptoms reported Neurological/Psychological: No symptoms reported -: Yes All other systems reviewed and negative Physical Exam - Vital signs Vitals: Pulse Ox 78 L 11/01/19 01:35 - General General appearance: Other - Somnolent; Elderly and frail appearing; Nonverbal - HEENT Head: Normocephalic, Atraumatic Eyes: Normal Pupils: PERRL - Respiratory Respiratory status: No respiratory distress Chest status: Nontender Breath sounds: Rhonchi - Diffusely rhonchorous Chest palpation: Normal - Cardiovascular Rhythm: Regular, Tachycardia Heart sounds: Normal auscultation Murmur: No Friction rub: No Gallop: None auscultated - Abdominal Inspection: Normal Distension: No distension Bowel sounds: Normal Tenderness: Nontender - Abdomen soft Organomegaly: No organomegaly - Back Back: Normal, Nontender - Extremities General upper extremity: Normal inspection General lower extremity: Normal inspection - Neurological Neuro grossly intact: Yes - Psychological Associated symptoms: Other - Somnolent - Skin Skin Temperature: Warm Skin Moisture: Dry Skin Color: Normal Course - Re-evaluation Re-evalutation: 11/01/19 02:51 Patient's son called when the patient arrived stating that all he wanted done for the patient was suctioning. Patient's son stated he did not want any IV started or blood work done. Respiratory therapy was able to suction out a moderate amount of secretions with improvement in terms of the patient's lung sounds. - Vital Signs Vital signs: Temp Pulse Resp BP Pulse Ox 36 H 101/49 L 92 11/01/19 03:01 11/01/19 03:00 11/01/19 03:01 Discharge - Discharge Clinical Impression: DNR (do not resuscitate), DNI (do not intubate) Dyspnea Qualifiers: Dyspnea type: unspecified Qualified Code(s): R06.00 - Dyspnea, unspecified Condition: Poor Disposition: HOME, SELF-CARE Additional Instructions: Return to the Emergency Department without delay if any worse. HOME CARE INSTRUCTIONS & INFORMATION: Thank you for choosing us for your medical needs. We hope you're satisfied with the care you received. After you leave, you must properly care for your problem and, at the same time, observe its progress. Any condition can change. Some illnesses can change rapidly over hours or days. If your condition worsens, return to the Emergency Department or see your physician promptly. ABOUT YOUR X-RAYS AND EKG'S: If you had an EKG or X-rays taken, they have been read by the Emergency Physician. The X-rays and EKG's will also be read by a Radiologist or Wheel Polisher within 24 hours. If discrepancies are noted, you will be notified by telephone. Please be certain the ED has a correct telephone number & address where you can be reached. Also, realize that some fractures or abnormalities do not show up on initial X-rays. If your symptoms continue, see your physician. ABOUT YOUR LABORATORY TEST: If you had laboratory tests, the results have been reviewed by the Emergency Physician. Some test results (for example cultures) may not be available for several days. You will be contacted if any test result shows you need additional treatment. Please be certain the ED has a correct telephone number and address where you can be reached. ABOUT YOUR MEDICATIONS: You will receive instructions on how to take your medicine on the prescription label you receive. Additional information may be provided by the Pharmacy. If you have questions afterwards, call the ED for clarification or further instructions. Some prescribed medications may cause drowsiness. Do not perform tasks such as driving a car or operating machinery without consulting your Pharmacist. If you feel you need a refill of pain medication, your condition will need re-evaluation. Please do not call for a refill of any medication. ABOUT YOUR SIGNATURE: Signature of this document acknowledges to followin. Understanding that you received emergency treatment and that you may be released before al medical problems are known or treated. Please be certain the ED has a correct phone number & address where you can be reached. 2. Acknowledgement that you will arrange for follow-up care as recommended. 3. Authorization for the Emergency Physician to provide information to your follow-up Physician in order to maximize your care. AT ANY TIME, IF YOUR SYMPTOMS CHANGE SIGNIFICANTLY OR WORSEN OR YOU DEVELOP NEW SYMPTOMS, RETURN TO THE EMERGENCY DEPARTMENT IMMEDIATELY FOR RE-EVALUATION. OUR GOAL IS TO PROVIDE EXCELLENT MEDICAL CARE! WE HOPE THAT WE HAVE MET YOUR EXPECTATIONS DURING YOUR EMERGENCY DEPARTMENT VISIT AND THAT YOU FEEL YOU HAVE RECEIVED EXCELLENT CARE! Referrals: VIRI HERNANDEZ MD [Primary Care Provider] - 11/02/19 I personally performed the services described in the documentation, reviewed and edited the documentation which was dictated to the scribe in my presence, and it accurately records my words and actions.
[2019-11-01 04:35] VITALS: BP 101/49
== END 2019-11-01 03:42 | disposition home or self-care (01) ==
LOC: ER 01:23
DX: R06.00 Dyspnea, unspecified (principal); Z66 Do not resuscitate; E11.9 Type 2 diabetes mellitus without complications; I10 Essential (primary) hypertension; F03.90 Unspecified dementia, unspecified severity, without behavioral disturbance, psychotic disturbance, mood disturbance, and anxiety; Z88.2 Allergy status to sulfonamides; Z88.3 Allergy status to other anti-infective agents; Z86.73 Personal history of transient ischemic attack (TIA), and cerebral infarction without residual deficits
CPT/HCPCS: 99285

== ENCOUNTER 2019-11-01 05:32 | Inpatient (IN) | payer MEDICARE ==
--- NOTE | 2019-11-01 06:52 | ER Document Report ---
Entered by LUZMA FOX SCRIBE 11/01/19 0617 Acting as scribe for:CHRIS UMAÑA MD ED General - General Chief Complaint: Respiratory Distress Stated Complaint: SHORTNESS OF BREATH Time Seen by Provider: 11/01/19 06:11 Primary Care Provider: VIRI HERNANDEZ MD [Primary Care Provider] - Follow up as needed Information source: Relative - Son Notes: This 89-year-old male presents to the emergency department via EMS with low oxygen saturation levels that began at home shortly after being discharged from the ED this morning at 3 AM. Patient was present in the emergency department last night for congestion. Patient's son (POJorden) requested to have a suction done to relieve his congestion. Patient was discharged and son called EMS for low oxygen saturation levels. Patient has the DNR paper with him in the emergency department. Patient's son told the nurse that he wants to know if his pneumonia is getting worse and how to help his oxygen saturation levels. Patient lives at home with spouse. Patient's son takes care of both the patient and his spouse. Important History: Patient was admitted on 10/21/2019 (1 1/2 weeks ago) for aspiration pneumonia. Patient had a chest x-ray which showed left lower lobe pneumonia. Another chest x-ray was completed on 10/22/2019 which was clear from pneumonia. Patient was discharged on 10/23/2019. Patient returned to the hospital on 10/23/2019, chest x-ray was normal. Patient was admitted and then patient was discharged on 10/29/2019 with a DNR order in place. TRAVEL OUTSIDE OF THE [place] IN LAST 30 DAYS: No - Related Data Allergies/Adverse Reactions: alprazolam [From Xanax] Allergy (Verified 10/21/19 07:21) brinzolamide [From Azopt] Allergy (Verified 10/21/19 07:21) levofloxacin [From Levaquin] Allergy (Verified 10/21/19 07:21) Sulfa (Sulfonamide Antibiotics) Allergy (Verified 10/21/19 07:21) grapes Allergy (Uncoded 10/21/19 07:21) peaches Allergy (Uncoded 10/21/19 07:21) Past Medical History - General Information source: Relative - Son - Social History Smoking Status: Unknown if Ever Smoked Chew tobacco use (# tins/day): No Frequency of alcohol use: None Drug Abuse: None Lives with: Spouse/Significant other - With son taking care of both patient and spouse Family History: Reviewed & Not Pertinent Patient has suicidal ideation: No Patient has homicidal ideation: No - Past Medical History Cardiac Medical History: Reports: Hx Hypertension Neurological Medical History: Reports: Hx Cerebrovascular Accident Endocrine Medical History: Reports: Hx Diabetes Mellitus Type 2 - oral GI Medical History: Reports: Hx Gastroesophageal Reflux Disease Psychiatric Medical History: Reports: Hx Dementia Past Surgical History: Reports: Hx Abdominal Surgery - SBO, Hx Orthopedic Surger y - Immunizations Hx Diphtheria, Pertussis, Tetanus Vaccination: Yes Review of Systems - Review of Systems Constitutional: No symptoms reported EENT: See HPI, Nose congestion Cardiovascular: No symptoms reported Respiratory: See HPI, Short of breath, Other - Low oxygenation levels Gastrointestinal: No symptoms reported Genitourinary: No symptoms reported Male Genitourinary: No symptoms reported Musculoskeletal: No symptoms reported Skin: No symptoms reported Hematologic/Lymphatic: No symptoms reported Neurological/Psychological: No symptoms reported -: Yes All other systems reviewed and negative Physical Exam - Vital signs Vitals: Resp BP Pulse Ox 20 95/58 L 92 11/01/19 05:41 11/01/19 05:41 11/01/19 05:41 - Notes Notes: Physical Exam: General: Responsive, opens eyes to respond. Cachectic. HEENT: Normocephalic. Atraumatic. PERRL. Extraocular movements intact. Oropharynx clear. Neck: Supple. Non-tender. Respiratory: No respiratory distress. Rhonchi bilaterally. Occasional cough. Cardiovascular: Regular rate and rhythm. Abdominal: Normal Inspection. Non-tender. No distension. Normal Bowel Sounds. Back: No gross abnormalities. Extremities: Moves all four extremities. Upper extremities: Normal inspection. Normal ROM. Lower extremities: Normal inspection. No edema. Normal ROM. Neurological: Demented. Psychological: Normal affect. Normal Mood. Skin: Hot. Dry. Normal color. Course - Re-evaluation Re-evalutation: 11/01/19 07:44 The patient's blood work shows suggestion of infection with an ANC of 17.8 There is also a potassium of 3.0, and the patient's chest x-ray shows new or recurrent bibasilar airspace disease. Orders were put in for potassium replacement, and to start Unasyn which was used on his last admission and resulted in clearing of his infiltrates at that time. - Vital Signs Vital signs: Temp Pulse Resp BP Pulse Ox 99.0 F 107 H 21 H 118/58 L 92 11/01/19 06:01 11/01/19 05:46 11/01/19 07:01 11/01/19 07:01 11/01/19 07:01 - Laboratory Result Diagrams: 11/01/19 06:58 11/01/19 06:58 Laboratory results interpreted by me: 11/01/19 11/01/19 11/01/19 06:58 06:58 07:30 WBC 19.3 H RDW 14.6 H Seg Neuts % (Manual) 85 H Band Neutrophils % 7 H Lymphocytes % (Manual) 2 L Abs Neuts (Manual) 17.8 H Abs Lymphs (Manual) 0.4 L Sodium 146.3 H Potassium 3.0 L* Chloride 113 H Creatinine 1.44 H Est GFR ( Amer) 56 L Est GFR (MDRD) Non-Af 46 L Glucose 228 H Creatine Kinase 35 L Total Protein 6.0 L Albumin 3.0 L Urine Protein 100 H Urine Glucose (UA) >=500 H Urine Ketones TRACE H Urine Urobilinogen 2.0 H - Diagnostic Test Radiology reviewed: Image reviewed, Reports reviewed - Chest x-ray shows bibasilar opacities which are new or recurrent since 10/23/2019 Discharge - Discharge Clinical Impression: Hypokalemia, Hypoxia, Hyperglycemia Pneumonia Qualifiers: Pneumonia type: due to unspecified organism Laterality: bilateral Lung location: lower lobe of lung Qualified Code(s): J18.9 - Pneumonia, unspecified organism Leukocytosis Qualifiers: Leukocytosis type: bandemia Qualified Code(s): D72.825 - Bandemia Dementia Qualifiers: Dementia type: unspecified type Dementia behavioral disturbance: without behavioral disturbance Qualified Code(s): F03.90 - Unspecified dementia without behavioral disturbance Condition: Fair Disposition: ADMITTED INPATIENT Admitting Provider: Radha Unit Admitted: Medical Floor Referrals: VIRI HERNANDEZ MD [Primary Care Provider] - Follow up as needed I personally performed the services described in the documentation, reviewed and edited the documentation which was dictated to the scribe in my presence, and it accurately records my words and actions.
[2019-11-01] MEDS ORDERED: NORMAL SALINE 1000 ML 1,000 ML IV ONE (06:55)
[2019-11-01 07:12] LABS: HEMATOCRIT 42.5 % (37.9-51.0); HEMOGLOBIN 14.5 g/dL (13.5-17.0); MEAN CORPUSCULAR HGB CONC 34.2 g/dL (32.0-36.0); MEAN CORPUSCULAR VOLUME 85 fl (80-97); PLATELET COUNT 304 10^3/uL (150-450); RED BLOOD COUNT 5.02 10^6/uL (4.35-5.55); RED CELL DISTRIBUTION WIDTH 14.6 % (11.5-14.0); WHITE BLOOD COUNT 19.3 10^3/uL (4.0-10.5)
[2019-11-01 07:21] LABS: ALKALINE PHOSPHATASE 100 U/L (38-126); ANION GAP 8 (5-19); ASPARTATE AMINO TRANSFERASE 42 U/L (17-59); BILIRUBIN,DIRECT 0.1 mg/dL (0.0-0.4); BILIRUBIN,TOTAL 0.8 mg/dL (0.2-1.3); BLOOD UREA NITROGEN 20 mg/dL (7-20); CALCIUM 8.6 mg/dL (8.4-10.2); CARBON DIOXIDE 25 mmol/L (22-30); CHLORIDE 113 mmol/L (98-107); CREATINE KINASE 35 U/L (55-170); GLUCOSE 228 mg/dL (75-110)
--- NOTE | 2019-11-01 07:21 | RADIOLOGY REPORT (SQ) ---
AP Portable chest: 11/01/2019 6:19 AM CDT History: 89-year old patient with congestion, hypoxia. Comparison: Chest radiograph performed 10/23/2019. Findings: The cardiomediastinal silhouette is normal in size. No pneumothorax is seen. There are bibasilar airspace opacities present. No discrete pleural effusion is apparent. Atherosclerotic calcifications are seen at the aortic arch. Multilevel degenerative changes are seen within the thoracic spine. Impression: There are bibasilar airspace opacities which may reflect atelectasis or infection.
[2019-11-01 07:37] LABS: ABSOLUTE LYMPHOCYTES# (MANUAL) 0.4 10^3/uL (0.5-4.7); ABSOLUTE MONOCYTES # (MANUAL) 1.2 10^3/uL (0.1-1.4); BAND NEUTROPHILS % (MANUAL) 7 % (3-5); BASOPHILS % (MANUAL) 0 % (0-2); EOSINOPHILS % (MANUAL) 0 % (0-6); LYMPHOCYTES % (MANUAL) 2 % (13-45); MONOCYTES % (MANUAL) 6 % (3-13); SEGMENTED NEUTROPHILS % (MAN) 85 % (42-78); TOTAL CELLS COUNTED 100
[2019-11-01 07:38] LABS: ANISOCYTOSIS SLIGHT; PLATELET COMMENT ADEQUATE; PLATELET LARGE PRESENT
[2019-11-01] MEDS ORDERED: AMPICILLIN SOD/SULBACTAM 3 GM VIAL IV ONE (07:43)
[2019-11-01 07:58] LABS: APPEARANCE,URINE SLIGHTLY-CLOUDY; BILIRUBIN,URINE NEGATIVE (NEGATIVE); COLOR,URINE AMBER; GLUCOSE, URINE >=500 mg/dL (NEGATIVE); KETONES,URINE TRACE mg/dL (NEGATIVE); LEUKOCYTE ESTERASE,URINE NEGATIVE (NEGATIVE); NITRITE,URINE NEGATIVE (NEGATIVE); PROTEIN,URINE 100 mg/dL (NEGATIVE); URINE SPECIFIC GRAVITY 1.024
[2019-11-01] MEDS ORDERED: DEXTROSE 40% GEL 15 GM TUBE PO PRN ×2 (10:17)
[2019-11-01] MEDS ORDERED: GLUCAGON,HUMAN RECOMB 1 MG INJ SUBCUT PRN (10:17)
[2019-11-01] MEDS ORDERED: DEXTROSE 50%-WATER 25 GM/50 ML DISP.SYRIN IV PRN ×2 (10:17)
[2019-11-01] MEDS: POTASSI CL 20 MEQ/50 ML RIDER 20 MEQ/50 ML RTUPB IV SCH ×5 (11:07→17:34)
[2019-11-01] MEDS ORDERED: AMPICILLIN SOD/SULBACTAM 3 GM VIAL IV SCH (12:00)
[2019-11-01] MEDS ORDERED: AMLODIPINE BESYLATE 5 MG TABLET PO SCH (12:30)
[2019-11-01] MEDS ORDERED: DOXAZOSIN MESYLATE 1 MG TABLET PO SCH (13:00)
[2019-11-01] MEDS ORDERED: GLIPIZIDE 5 MG TABLET PO SCH (13:00)
[2019-11-01] MEDS ORDERED: ACETAMINOPHEN 650 MG SUPP.RECT PR PRN (13:04)
[2019-11-01] MEDS ORDERED: ONDANSETRON HCL INJ/PF 4 MG/2 ML SDV IV PRN (13:04)
[2019-11-01] MEDS ORDERED: ALBUTEROL SULFATE 0.083% NEB 2.5 MG/3 ML AMPUL NEB PRN (13:04)
[2019-11-01] MEDS: FAMOTIDINE 20 MG TABLET PO SCH ×2 (13:49→19:38)
[2019-11-01] MEDS: HEPARIN SOD (PORCINE) 5,000 UNIT/ML 1 ML VIAL SUBCUT SCH ×2 (13:49→23:08)
[2019-11-01] MEDS: CLOPIDOGREL BISULFATE 75 MG TABLET PO SCH (13:50)
--- NOTE | 2019-11-01 14:02 | PDOC H&P ---
History of Present Illness Admission Date/PCP: 11/01/19 08:18 VIRI HERNANDEZ MD History of Present Illness: MAGUI CABALLERO is a 89 year old male with PMH as noted who has had many repeat visits to hospital for recurrent aspiration PNA. Son cares for pt and pt's at home who are both very ill. In ED, patient seen to be tachypneic and hypoxemic and was placed on 2 L nasal cannula. 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 Patient's BMI is down to 16 which son does not seem to believe has been a gradual occurrence, rather tried to in someway blame the hospital for his weight loss during the last admission. I assured him this has occurred over many months and will only continue to get worse as patient continues to be more and more malnourished. Chest x-ray showed new left lower lobe infiltrates consistent with pneumonia. Per son, he has been fired by multiple hospice companies due to refusing to give his father morphine and he also notes Adult Protective Services was called on him for this refusal recently. I explained to him many times in many different ways that the patient has multiple severe comorbidities that are not curable and will only progress until the patient eventually passes away. We agreed that the patient's best interest lie in getting him back home where he can be cared for by hospice. Past Medical History Cardiac Medical History: Reports: Hypertension Pulmonary Medical History: Reports: Pneumonia Endocrine Medical History: Reports: Diabetes Mellitus Type 2 - oral GI Medical History: Reports: Gastroesophageal Reflux Disease Psychiatric Medical History: Reports: Dementia Past Surgical History Past Surgical History: Reports: Orthopedic Surgery Social History Information Source: Relative, POA - Power of Head Strength And Conditioning Coach, Emergency Med Personnel, [facility] Records Lives with: Family, Spouse/Significant other - With son taking care of both patient and spouse Smoking Status: Unknown if Ever Smoked Electronic Cigarette use?: No Frequency of Alcohol Use: None Hx Recreational Drug Use: No Hx Prescription Drug Abuse: No - Advance Directive Resuscitation Status: Do Not Resuscitate Surrogate healthcare decision maker:: son Family History Family History: Reviewed & Not Pertinent Parental Family History Reviewed: No Children Family History Reviewed: NA Sibling(s) Family History Reviewed.: NA Medication/Allergy Home Medications: Clopidogrel Bisulfate [Plavix 75 mg Tablet] 75 mg PO DAILY 10/08/16 Famotidine 20 mg PO BID 10/08/16 Donepezil HCl [Aricept 5 mg Tablet] 5 mg PO QHS 10/21/19 Amlodipine Besylate [Norvasc 5 mg Tablet] 5 mg PO Q12 10/24/19 Doxazosin Mesylate [Cardura 1 mg Tablet] 1 mg PO Q12 10/24/19 Glipizide [Glucotrol 5 mg Tablet] 2.5 mg PO DAILY 10/24/19 Latanoprost [Xalatan 0.005% Oph Soln 2.5 ml] 1 drop OU QHS 10/24/19 Timolol Maleate [Timoptic 0.5% Oph Soln 5 ml] 1 drop OU BID 10/24/19 Brimonidine Tartrate [Alphagan 0.2% Oph Soln 5 ml] 1 drop OP BID 11/01/19 Allergies/Adverse Reactions: alprazolam [From Xanax] Allergy (Verified 10/21/19 07:21) brinzolamide [From Azopt] Allergy (Verified 10/21/19 07:21) levofloxacin [From Levaquin] Allergy (Verified 10/21/19 07:21) Sulfa (Sulfonamide Antibiotics) Allergy (Verified 10/21/19 07:21) grapes Allergy (Uncoded 10/21/19 07:21) peaches Allergy (Uncoded 10/21/19 07:21) Review of Systems ROS unobtainable: Due to mental status Physical Exam Vital Signs: Temp Pulse Resp BP Pulse Ox 97.5 F 87 24 H 129/50 H 87 L 11/01/19 12:13 11/01/19 12:13 11/01/19 12:13 11/01/19 12:13 11/01/19 12:13 Intake & Output 10/31/19 11/01/19 11/02/19 06:59 06:59 06:59 Intake Total 1000 Output Total 150 Balance 850 Weight 48.4 kg General appearance: PRESENT: no acute distress, hard of hearing, thin, other - emaciated Head exam: PRESENT: atraumatic, normocephalic Eye exam: PRESENT: conjunctiva pink Mouth exam: PRESENT: dry mucosa Respiratory exam: PRESENT: crackles, decreased breath sounds, rhonchi, tachypnea. ABSENT: wheezes Cardiovascular exam: PRESENT: RRR. ABSENT: diastolic murmur, rubs, systolic murmur GI/Abdominal exam: PRESENT: normal bowel sounds, soft. ABSENT: distended, guarding, mass, organolmegaly, rebound, tenderness Neurological exam: PRESENT: altered. ABSENT: alert, awake Psychiatric exam: PRESENT: anxious Skin exam: PRESENT: dry, intact, warm Results Laboratory Results: 11/01/19 06:58 11/01/19 06:58 11/01/19 11/01/19 11/01/19 06:58 06:58 07:30 WBC 19.3 H RBC 5.02 Hgb 14.5 Hct 42.5 MCV 85 MCH 29.0 MCHC 34.2 RDW 14.6 H Plt Count 304 Seg Neutrophils % Not Reportable Sodium 146.3 H Potassium 3.0 L* Chloride 113 H Carbon Dioxide 25 Anion Gap 8 BUN 20 Creatinine 1.44 H Est GFR ( Amer) 56 L Glucose 228 H Calcium 8.6 Total Bilirubin 0.8 AST 42 Alkaline Phosphatase 100 Total Protein 6.0 L Albumin 3.0 L Urine Color NERY Urine Appearance SLIGHTLY-CLOUDY Urine pH 5.0 Ur Specific [place] 1.024 Urine Protein 100 H Urine Glucose (UA) >=500 H Urine Ketones TRACE H Urine Blood NEGATIVE Urine Nitrite NEGATIVE Ur Leukocyte Esterase NEGATIVE Urine WBC (Auto) 1 Urine RBC (Auto) 2 11/01/19 11/01/19 06:58 06:58 Creatine Kinase 35 L Troponin I 0.045 Assessment and Plan - Diagnosis (1) Aspiration pneumonia Qualifiers: Aspiration pneumonia type: unspecified Laterality: left Lung location: lower lobe of lung Qualified Code(s): J69.0 - Pneumonitis due to inhalation of food and vomit Is this a current diagnosis for this admission?: Yes Plan: Recurrent aspiration of food given to patient through syringe by son; results in recurrent pneumonia Pneumonia seen in left lower lobe on chest x-ray Unasyn started in ED, continue Modified barium swallow ordered Speech therapy ordered Bronchial hygiene, supplemental oxygen as needed (2) Acute hypoxemic respiratory failure Is this a current diagnosis for this admission?: Yes Plan: Due to aspiration pneumonia as above Maintain oxygen saturation of 89 to 92% (3) Protein-calorie malnutrition, severe Is this a current diagnosis for this admission?: Yes Plan: Son has been feeding patient using a syringe and states this is what his parents did for his dying and when she had Alzheimer's Patient desperately needs palliation and hospice care at home, unfortunately son was fired by multiple hospice agencies were refusing to follow their orders, also resulted in Adult Protective Services being called on him Need care coordination support to find hospice care at home (4) Dysphagia Is this a current diagnosis for this admission?: Yes Plan: Results and pneumonia multiple times Speech therapy and modified barium swallow as above (5) Hard of hearing Is this a current diagnosis for this admission?: Yes (6) Blindness Is this a current diagnosis for this admission?: Yes (7) Acute kidney injury superimposed on CKD Is this a current diagnosis for this admission?: Yes Plan: Creatinine 1.44 on admission Trend BMP Suspect prerenal due to severe dehydration which is chronic and will not ultimately improve long-term (8) Type 2 diabetes mellitus Qualifiers: Diabetes mellitus complication status: with ophthalmic complications Diabetes mellitus complication detail: with diabetic retinopathy Diabetic retinopathy severity: with unspecified retinopathy severity Diabetes mellitus macular edema: macular edema presence unspecified Laterality: bilateral Is this a current diagnosis for this admission?: Yes Plan: Sliding scale insulin, Accu-Cheks Given patient is not eating, doubt he will need much insulin support (9) Dementia Qualifiers: Dementia type: unspecified type Dementia behavioral disturbance: without behavioral disturbance Qualified Code(s): F03.90 - Unspecified dementia without behavioral disturbance Is this a current diagnosis for this admission?: Yes Plan: Severe end-stage dementia (10) Sepsis Qualifiers: Sepsis type: sepsis due to unspecified organism Sepsis acute organ dysf unction status: with acute organ dysfunction Severe sepsis acute organ dy sfunction type: acute respiratory failure Acute respiratory failure type: with hypoxia Severe sepsis shock status: without septic shock Qualified Code(s): A41.9 - Sepsis, unspecified organism; R65.20 - Severe sepsis without septic shock; J96.01 - Acute respiratory failure with hypoxia Is this a current diagnosis for this admission?: Yes Plan: Source is aspiration pneumonia Antibiotics, IV fluids as above (11) Severe protein-calorie malnutrition Is this a current diagnosis for this admission?: Yes (12) Hypokalemia Is this a current diagnosis for this admission?: Yes Plan: Replete with IV potassium as patient cannot take oral - Time Time Spent with patient: 35 or more minutes Medications reviewed and adjusted accordingly: Yes Anticipated discharge: Hospice Within: within 48 hours - Inpatient Certification Medical Necessity: Significant Comorbidiites Make Outpatient Treatment Too Risky, Need Close Monitoring Due to Risk of Patient Decompensation, Need For IV Fluids, Need for IV Antibiotics, Risk of Complication if Not Cared For in Hospital
--- NOTE | 2019-11-01 14:03 | ADVANCED CARE ---
- Diagnosis (1) Aspiration pneumonia Diagnosis Current: Yes (2) Acute hypoxemic respiratory failure Diagnosis Current: Yes (3) Protein-calorie malnutrition, severe Diagnosis Current: Yes (4) Dysphagia Diagnosis Current: Yes (5) Hard of hearing Diagnosis Current: Yes (6) Blindness Diagnosis Current: Yes (7) Acute kidney injury superimposed on CKD Diagnosis Current: Yes (8) Type 2 diabetes mellitus Diagnosis Current: Yes (9) Dementia Diagnosis Current: Yes (10) Sepsis Diagnosis Current: Yes (11) Severe protein-calorie malnutrition Diagnosis Current: Yes (12) Hypokalemia Diagnosis Current: Yes Attendance: Patient and son, son discussed with over the phone Resuscitation Status: Do Not Resuscitate Discussion: All aspects of CODE STATUS reviewed including chest compressions, cardioversion, intubation and the son states he agrees with DNR/DNI and wants this order placed in the patient's chart. He is the patient's M POA and can provide this paperwork if needed. Time Spent: 17 minutes
[2019-11-01] MEDS: AMPICILLIN SODIUM/SULBACTAM NA 3 GM in NORMAL SALINE 100 ML IV SCH ×2 (15:39→23:08)
[2019-11-01] MEDS: INSULIN LISPRO 100 UNIT/ML 3 ML VIAL SUBCUT SCH ×2 (17:00→22:45)
[2019-11-01] MEDS: BRIMONIDINE TARTRATE 0.2% OPH SOLN 5 ML OP SCH (18:53)
[2019-11-01] MEDS: TIMOLOL MALEATE 0.5% OPH SOLN 5 ML OU SCH (18:53)
[2019-11-01] MEDS ORDERED: LATANOPROST 0.005% OPH SOLN 2.5 ML OU SCH (22:00)
[2019-11-01] MEDS ORDERED: DONEPEZIL HCL 5 MG TABLET PO SCH (22:00)
[2019-11-02] MEDS: AMPICILLIN SODIUM/SULBACTAM NA 3 GM in NORMAL SALINE 100 ML IV SCH ×3 (04:17→16:02)
[2019-11-02 06:03] LABS: ABSOLUTE EOSINOPHILS # (AUTO) 0.1 10^3/uL (0.0-0.6); ABSOLUTE MONOCYTES (AUTO) 0.8 10^3/uL (0.1-1.4); ABSOLUTE NEUT (AUTO) 10.8 10^3/uL (1.7-8.2); BASOPHILS % (AUTO) 0.2 % (0-2); EOSINOPHILS % (AUTO) 0.9 % (0-6); HEMATOCRIT 36.1 % (37.9-51.0); MEAN CORPUSCULAR HEMOGLOBIN 28.4 pg (27.0-33.4); MEAN CORPUSCULAR HGB CONC 33.7 g/dL (32.0-36.0); MEAN CORPUSCULAR VOLUME 84 fl (80-97); MONOCYTES % (AUTO) 6.2 % (3-13); PLATELET COUNT 263 10^3/uL (150-450); RED BLOOD COUNT 4.29 10^6/uL (4.35-5.55); RED CELL DISTRIBUTION WIDTH 14.8 % (11.5-14.0); SEGMENTED NEUTROPHILS % (AUTO) 84.7 % (42-78); TOTAL CELLS COUNTED % (AUTO) 100 %; WHITE BLOOD COUNT 12.7 10^3/uL (4.0-10.5)
[2019-11-02] MEDS: HEPARIN SOD (PORCINE) 5,000 UNIT/ML 1 ML VIAL SUBCUT SCH ×2 (06:05→16:02)
[2019-11-02 06:08] LABS: HEMOGLOBIN 12.2 g/dL (13.5-17.0)
[2019-11-02 06:24] LABS: ANION GAP 5 (5-19); BLOOD UREA NITROGEN 18 mg/dL (7-20); CALCIUM 7.9 mg/dL (8.4-10.2); CARBON DIOXIDE 21 mmol/L (22-30); CHLORIDE 122 mmol/L (98-107); GLUCOSE 117 mg/dL (75-110); POTASSIUM 3.5 mmol/L (3.6-5.0)
--- NOTE | 2019-11-02 09:13 | RADIOLOGY REPORT (SQ) ---
EXAM DESCRIPTION: COOKIE SWALLOW IMAGES COMPLETED DATE/TIME: 11/02/2019 8:49 am REASON FOR STUDY: aspiration, dysphagia dementia, aspiration pneumonia COMPARISON: None. TECHNIQUE: Videofluoroscopic swallowing examination was performed in conjunction with speech patholo gy. Videofluoroscopic imaging was obtained and reviewed and these are the findings: RADIATION DOSE: 3 minutes 44 seconds of fluoroscopy was used. 1 images saved to PACS. LIMITATIONS: None FINDINGS: The patient was brought into the fluoro room and placed upright on a modified barium swall ow chair. The patient was then given multiple consistencies mixed with barium to swallow under live fluoroscopic video guidance. According to the Speech Pathologist there was laryngeal penetration to the level cords of secretions. Patient demonstrated 1 week and uncoordinated swallow. There was spil bonita over the base of tongue with pooling in the vallecular he was spillage into the piriform sinuses . IMPRESSION: PENETRATION OF SECRETIONS TO LEVEL CORDS. NO DEFINITE ASPIRATION SEEN. PLEASE SEE [facility] PATH[facility] REPORT FOR OTHER FINDINGS AND RECOMMENDATIONS. COMMENT: Quality ID [id number]: Final reports for procedures using fluoroscopy that document radiation exp osure indices, or exposure time and number of fluorographic images (if radiation exposure indices are not available) TECHNICAL DOCUMENTATION: JOB ID: [id number] 2010 [employer]- All Rights Reserved Reading location - IP/workstation name: [email or web address]
--- NOTE | 2019-11-02 10:50 | ST Inp Modified Barium Swallow ---
Medical Diagnosis - Medical Diagnoses Medical Diagnosis Description & ICD-10 Code(s): aspiration pneumonia - ICD-10 Tx Diagnosis Coding (1) Aspiration pneumonia ICD-10 Code(s): J69.0 - PNEUMONITIS DUE TO INHALATION OF FOOD AND VOMIT (2) Dysphagia ICD-10 Code(s): R13.10 - DYSPHAGIA, UNSPECIFIED ST Inpatient MBS - General Date: 11/02/19 Date of Onset: 11/01/19 - date of most recent admission, condition is ongoing - History -: Medical - Patient was admitted 10/31 due to respiratory distress. The patient has underlying dementia, advanced. This patient was seen upon recent admissions as well. At home, he is reportedly fed by syringe by his son with nectar thick liquids and blended foods. Recent chest x-ray shows signs of aspiration pneumonia. Medications: Medications Reviewed Allergies: Refer to medical record - Subjective Current Nutritional Means: NPO Current PO Diet: N/A (NPO) Current Symptoms: Weight loss, Poor intake, Pneumonia, Hx of asp. pneumonia Pain: unable to communicate - Objective Assessment: Upright, Left Lateral - Food Trials Food Trials Used: [place] thick liquids The Patient: fed by - via syringe - Assessment Labial Function: Impaired - Patient demonstrated minimal labial closure with tactile stimulation, or with bolus presentation. Therapist wiped patients mouth with wet cloth for tactile stimulation, patient opened his mouth at this and the mouth remained open with therapist placed gentle pressure on jaw for closure. With syringe presented to side of mouth, the patient did not close his lips around the syringe but demonstrated lingual groping pattern. Upon fluoroscopy, it was noted that majority of bolus remained on the floor of the patient's mouth without effective attempts to propel bolus for a swallow. Lingual Function: Impaired - Lingual groping pattern was seen with tactile stimulation and with presentations of liquid via syringe. - Pharyngeal Stage Initiation of Pharyngeal Stage: Absent Swallow Pahryngeal Stage Comments: Patient demonstrated minimal swallow reflex with trials of nectar liquid via syringe, which is how the patient is fed at home per son's report during prior admission (10/24/19). 1-2 mL of liquid given per presentation. Therapist also loudly told patient "swallow" in somali (tragar), as the son reports that this is what he does when feeding the patient. Bolus freely fell into pharyngeal cavity from oral cavity, of note, patient was also keeping mouth open and tongue was outside of the mouth when this happened. Liquid was seen mostly in pyriform sinus, no swallow triggered. Therapist slowly presented more liquid 1 mL at a time to see if increased bolus size would trigger a swallow reflex. This was not seen, and liquid was seen to further spill into pyriform sinus and penetrate into laryngeal cavity. No daniela aspiration was seen, however, deep penetration to the level of the vocal folds was seen without any strong reaction to try to clear. One spontaneous swallow was seen on the study (3 minutes and 44 seconds of fluoro time), however, minimal clearance of bolus from pharynx was seen. Also, the fact that the spontaneous swallow only occured once during almost 4 minutes of time also speaks to generally reduced reflex, as the average person swallows approximately 4-6 times per minute spontaneously. At the end of the study, therapist swabbed out additional barium from the patient's mouth. - Impression/Summary Laryngeal Penetration: Yes, Deep Tracheal Aspiration: no - no observed aspiration, however, patient is at very high risk based on swallow physiology Patient Presents With: Oral-Pharyngeal dysph., Profound Risk of Aspiration: Severe Risk of Nutritional Compromise: Severe - Recommendations Other Recommendations: No safe diet recommendations can be made as the patient is at high risk of aspiration on any consistency. Dr. Garcia was made aware of these results and stated he wants the patient to be strict NPO. - Time Total Time: 30 Total Timed Minutes: 30
[2019-11-02] MEDS: INSULIN LISPRO 100 UNIT/ML 3 ML VIAL SUBCUT SCH ×2 (12:38→12:39)
[2019-11-02] MEDS: TIMOLOL MALEATE 0.5% OPH SOLN 5 ML OU SCH (12:40)
[2019-11-02] MEDS: FAMOTIDINE 20 MG TABLET PO SCH (12:40)
[2019-11-02] MEDS: BRIMONIDINE TARTRATE 0.2% OPH SOLN 5 ML OP SCH (12:40)
[2019-11-02] MEDS: CLOPIDOGREL BISULFATE 75 MG TABLET PO SCH (12:40)
[2019-11-02 13:40] VITALS: BP 166/54
--- NOTE | 2019-11-02 16:25 | Progress Note ---
Provider Note Provider Note: Extensive conversation with patient's son today regarding course and plan going forward. He is completely changed his plan from our discussion last night which was hospice, now stating he wants the patient to be transferred to [facility] stating that he has someone who will accept him there but cannot tell me the name of the person or who or when he spoke to this person. He also states he is recording our conversation to which I replied I do not consent to recording our conversation. He makes various accusatory statements about his father and mother's care here, stating that he has no janine in this hospital and does not want his parents seen here. He does continue to have his parents brought here when they are ill as his father has had multiple recent admissions for aspiration which does not seem to be improving. Son also states he is reviewing the patient's swallow study at home on a CD but that he cannot interpret it because he is "not a doctor". He states he is going to get a neurologist to review his father's case and when I asked what this systems security consultant might add to improve his father's care he could not give me an answer. When I asked the son what services the patient would be provided at an outside hospital that we cannot provide here he also could not give me an answer. He states that he has no problem with the care that I have given his father personally but he is very angry that the ER admitted the patient and put a Martinez catheter in him. The son stated he will come here and sign out his father AGAINST MEDICAL ADVICE. I have explained to him on multiple occasions that I believe his father is dying and that the best care for him would be at home with hospice services. I do not believe the patient will survive a long car ride to another hospital, unfortunately the son hung up on me before I was able to discuss this with him. I have notified risk-management and other administrators of the situation.
--- NOTE | 2019-11-02 17:16 | Left Against Medical Advice ---
Against Medical Advice Admission Date/Time: 11/01/19 08:18 Primary Care Provider: Date of Patient Emigration: 11/02/19 - Diagnosis: (1) Aspiration pneumonia Is this a current diagnosis for this admission?: Yes (2) Acute hypoxemic respiratory failure Is this a current diagnosis for this admission?: Yes (3) Protein-calorie malnutrition, severe Is this a current diagnosis for this admission?: Yes (4) Dysphagia Is this a current diagnosis for this admission?: Yes (5) Hard of hearing Is this a current diagnosis for this admission?: Yes (6) Blindness Is this a current diagnosis for this admission?: Yes (7) Acute kidney injury 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 MAGUI CABALLERO is a 89 M, who LEFT AGAINST MEDICAL ADVICE. The Patient was admitted on 11/01/19 08:18. Multiple extensive conversations were had with the patient's son and attempt to determine what his goals of care are for the patient. Unfortunately, the patient's son changed his mind multiple times during the admission about whether he wants his father in hospice or to be transferred to another hospital or to go home. Eventually, he did not wish to speak with the team any further and wanted to take the patient to violent AGAINST MEDICAL ADVICE. Multiple providers were present during the phone conversations with the patient's son in which I repeatedly asked the son how I could help him and his father. Esau Ledezma PA-C was present and can attest to my efforts to provide quality care to the patient and his family. I stated multiple times that I do not consent to the patient's son recording our conversations however he continued to do so. Patient was taken to his son's car via wheelchair and the son signed AMA paperwork. Son is aware that he is welcome to return to the hospital at any time where we will continue to provide care to his father.
== END 2019-11-02 18:14 | disposition left against medical advice (07) | DRG 871 ==
LOC: ER 05:32 → EH 08:18 → 4S 09:43
PROVIDERS: ADMIT Internal Medicine; ATTEND Internal Medicine
DX: A41.9 Sepsis, unspecified organism (principal); J69.0 Pneumonitis due to inhalation of food and vomit; J96.01 Acute respiratory failure with hypoxia; E43 Unspecified severe protein-calorie malnutrition; N17.9 Acute kidney failure, unspecified; Z68.1 Body mass index [BMI] 19.9 or less, adult; R65.20 Severe sepsis without septic shock; E11.311 Type 2 diabetes mellitus with unspecified diabetic retinopathy with macular edema; F03.90 Unspecified dementia, unspecified severity, without behavioral disturbance, psychotic disturbance, mood disturbance, and anxiety; E11.22 Type 2 diabetes mellitus with diabetic chronic kidney disease; E86.0 Dehydration; E87.6 Hypokalemia; Z53.29 Procedure and treatment not carried out because of patient's decision for other reasons; I12.9 Hypertensive chronic kidney disease with stage 1 through stage 4 chronic kidney disease, or unspecified chronic kidney disease; N18.9 Chronic kidney disease, unspecified; K21.9 Gastro-esophageal reflux disease without esophagitis; Z66 Do not resuscitate; H54.7 Unspecified visual loss; H91.90 Unspecified hearing loss, unspecified ear; R13.10 Dysphagia, unspecified; Z74.01 Bed confinement status; Z79.84 Long term (current) use of oral hypoglycemic drugs; Z79.899 Other long term (current) drug therapy; Z91.018 Allergy to other foods; Z88.2 Allergy status to sulfonamides; Z88.8 Allergy status to other drugs, medicaments and biological substances; Z87.01 Personal history of pneumonia (recurrent); Z86.73 Personal history of transient ischemic attack (TIA), and cerebral infarction without residual deficits
CPT/HCPCS: 36415; 71045; 74230; 80048; 80053; 81001; 82550; 82962; 83735; 84484; 85025; 87040; 96360; 99285; J0295; J1644; J1815; J3480; J3490; J7030; J7050